=== PATIENT | female | born 1935 | race Caucasian/White ===

== ENCOUNTER → 2018-08-03 13:01 | Outpatient (CLI) | payer MEDICARE, SELFPAY ==
--- NOTE | 2018-08-03 | DI.MG.S_ITS ---
BILATERAL DIGITAL SCREENING MAMMOGRAM 3D/2D WITH CAD: 08/03/2018 CLINICAL: Routine screening. Comparison is made to exams dated: 07/30/2017 mammogram, 07/29/2016 mammogram, and 07/27/2015 mammogram - Merged With [facility]. The tissue of both breasts is heterogeneously dense. This may lower the sensitivity of mammography. Current study was also evaluated with a Computer Aided Detection (CAD) system. There are benign calcifications in both breasts. No significant masses, calcifications, or other findings are seen in either breast. There has been no significant interval change. IMPRESSION: There is no mammographic evidence of malignancy. A 1 year screening mammogram is recommended. This exam was interpreted at Station ID: [id number]. NOTE: For mammograms, a report in lay terms will be sent to the patient. Approximately 15% of breast malignancies will not be visualized mammographically. In the management of a palpable breast mass, a negative mammogram must not discourage biopsy of a clinically suspicious lesion. Electronically Signed By: Fredy reza/mallorie:08/03/2018 17:01:49 letter sent: Normal Exam ACR BI-RADS Category 2: Benign Finding(s) [id number]
== END ==
PROVIDERS: PCP Physician Assistant; Visit Provider Physician Assistant
DX: Z12.31 Encounter for screening mammogram for malignant neoplasm of breast (principal)
CPT/HCPCS: 77063; 77067

== ENCOUNTER → 2018-10-27 08:20 | Outpatient (CLI) | payer MEDICARE, SELFPAY ==
[2018-10-27 09:13] LABS: Add Manual Diff / Slide Review NO; Basophils Absolute Auto 100 /uL (0-100); Eosinophils Absolute Auto 300 /uL (0-450); Eosinophils Percent Auto 2.7 % (2-4); Hematocrit 37.3 % (36-46); Hemoglobin 12.5 g/dL (12.0-16.0); Lymphocytes Absolute Auto 2800 /uL (1100-4500); Lymphocytes Percent Auto 28.4 % (25-40); Mean Corpuscular HGB Conc 33.4 % (30-36); Mean Corpuscular Hemoglobin 31.3 PG (26-34); Mean Corpuscular Volume 93.7 fL (80-100); Monocytes Absolute Auto 1000 /uL (0-900); Monocytes Percent Auto 10.1 % (3-14); Neutrophils Absolute Auto 5600 /uL (1500-7000); Neutrophils Percent Auto 57.8 % (50-75); Platelet Count 375 X10^3/uL (150-400); Red Blood Cell Count 3.98 X10^6/uL (4.0-5.2); Red Cell Distribution Width 15.4 % (11.6-14.8); White Blood Cell Count 9.7 X10^3/uL (4.5-11.0)
[2018-10-27 09:37] LABS: Alanine Aminotransferase 11 IU/L (9-52); Albumin 3.8 g/dL (3.5-5.0); Albumin Globulin Ratio 1.4 (1.0-2.8); Alkaline Phosphatase 60 U/L (38-126); Aspartate Aminotransferase 23 IU/L (14-36); Bilirubin Total 0.3 mg/dL (0.2-1.3); Blood Urea Nitrogen 31 mg/dL (7-17); Calcium 9.4 mg/dL (8.4-10.2); Carbon Dioxide 29 mmol/L (22-32); Chloride 104 mmol/L (98-107); Cholesterol 164 mg/dL (140-199); Estimated Glomerular Filt Rate 53.1 mL/min (>60); Globulin 2.8 g/dL (1.7-4.1); Glucose 83 mg/dL (80-110); HDL Cholesterol 78 mg/dL (40-60); HEMOLYSIS < 15 (0-50); LDL Cholesterol Calculated 57 mg/dL (<100); Potassium 4.7 mmol/L (3.4-5.1); Sodium 139 mmol/L (137-145); Total Protein 6.6 g/dL (6.3-8.2); Triglycerides 145 mg/dL (35-150)
== END ==
PROVIDERS: PCP Physician Assistant; Visit Provider Student in an Organized Health Care Education/Training Program
DX: I10 Essential (primary) hypertension (principal); E78.5 Hyperlipidemia, unspecified
CPT/HCPCS: 36415; 80053; 80061; 85025

== ENCOUNTER 2019-01-04 13:45 | Outpatient (RCR) | payer MEDICARE, SELFPAY ==
--- NOTE | 2018-10-28 17:35 | PT.OPPOC ---
Current Diagnoses Cervicalgia (10/28/18) Provider Visit Care Team Role Provider Type Wendi Linton PA-C Attending Provider [employer] Specialist Primary Care Provider Specialty: Internal Medicine Address: [address] [place] [address], [facility] Email: Plan Of Care PT-OP-T Assessment and Plan Start: 10/28/18 13:45 Freq: Status: Active Protocol: Document 10/28/18 13:46 EA (Rec: 10/28/18 14:29 EA [id number]) Physical Therapy Assessment Rehab Potential Rehabilitation Potential Good Evaluation Complexity Number of Personal Factors/Comorbidities 1-2 Number of Body Systems Impaired 1-2 Clinical Presentation at Evaluation Stable Impairments Impairments Activity Tolerance Pain Posture ROM Soft Tissue Mobility Strength Goals Four Impairment Impaired strength Alf Goal (LTG) Patient will exhibit functional strength to cervical flexion, SF, rotation , and cervical retraction to enhance functional neck mobility LTG Duration 5 wks Three Impairment Driving difficulty Alf Goal (LTG) Patient will have no difficulty/ or pain when her turning her head if requires while driving. LTG Duration 5 wks Two Impairment NDI score of 18/50 Retail Team Leader Goal (LTG) NDI score of <10/50 to enhance quality of life LTG Duration 5 wks One Impairment No HEP in place Alf Goal (LTG) Patient will demonstrate independent HEP LTG Duration 3wks Assessment Summary Assessment Pleasant 82 y/o F patient with a referring diagnosis of cervicalgia. Today patient exhibited difficulty of head turning due posterior neck pain. Tests and assessment reveals limited ROM with cervical rotation, SF, and extension. Cervical flexors, cervical side flexors, rotators shows weakness which maybe due to pain. Patient shows rounded shoulders with bilaterals shoulder depression , and slight increased of thoracic kyphosis. Sensory and reflex to upper cervical region reveals normal. Cervical compression tests did no show any signs of nerve compression as cervical dermatomes. 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 Patient would greatly benefit with skilled PT. to improve posture, eliminate or reduce symptoms, and education. Physical Therapy Plan Frequency and Duration Frequency of Treatment 2x/Week Duration of Treatment 8 wks Plan of Care Start Date 10/28/18 Plan of Care End Date 12/23/18 Therapeutic Interventions Therapeutic Interventions Home Exercise Program Joint Mobilizations Manual Therapy Patient/Caregiver Education Soft Tissue Mobilization Therapeutic Exercises Modalities Cold Pack/Ice Massage Electric Stimulation Hot Packs Traction- Mechanical Ultrasound Next Visit Focus/Plan Next Note Type Treatment Note Plan of Care Dates Plan of Care Start Date 10/28/18 Plan of Care End Date 12/23/18 Please Sign and Return: I have reviewed this Plan of Care and certify that the skilled therapy services above are required to meet the patient?s needs. Physician Signature Date Printed Name and Credentials Clinical Instructor Signature Printed Name and Credentials
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
--- NOTE | 2018-12-21 14:30 | PT.OPPOC ---
Current Diagnoses Cervicalgia (12/21/18) Visit Care Team Role Provider Type Wendi Linton PA-C Attending Provider Advanced Restaurant Area Manager Primary Care Provider Specialty: Internal Medicine Address: [address] [place] [address], [id number] Email: [email or web address] Of Care PT-OP-T Assessment and Plan Start: 10/28/18 13:45 Freq: Status: Active Protocol: Document 12/21/18 13:45 DLM (Rec: 12/21/18 16:32 DLM [id number]) Physical Therapy Assessment Goals Four Impairment Impaired strength Professor Of Legal Studies Goal (LTG) Improving- Patient will exhibit functional strength to cervical flexion, SF, rotation, and cervical retraction to enhance functional neck mobility LTG Duration 01/04/19 Three Impairment Driving difficulty Fpc Goal (LTG) Slow progress- Patient will have no difficulty/ or pain when her turning her head if requires while driving. LTG Duration 01/04/19 Two Impairment NDI score of 18/50 Fpc Goal (LTG) Progressing- NDI score of <10/ 50 to enhance quality of life LTG Duration 01/04/19 One Impairment No HEP in place Professor Of Legal Studies Goal (LTG) Progressing-Patient will demonstrate independent HEP LTG Duration 01/04/19 Progress Towards Goals Progress Comments she continues to slowly progress Assessment Summary Assessment She tolerated her exercises well. She shows improvement in all area but has not fully met her goals yet. Left rotation continues to be the most painful for her. Cervical weakness still limits her ability to lift her head off the bed. Will continue PT for 2 more weeks then plan to discharge to [facility]. Physical Therapy Plan Frequency and Duration Frequency of Treatment 2x/Week Duration of Treatment 8 wks Plan of Care Start Date 12/21/18 Plan of Care End Date 01/04/19 Therapeutic Interventions Therapeutic Interventions Home Exercise Program,Joint Mobilizations,Manual Therapy, Patient/Caregiver Education, Self-Care/Home Management,Soft Tissue Mobilization,Taping, Therapeutic Activities, Therapeutic Exercises Modalities Cold Pack/Ice Massage,Electric Stimulation,Hot Packs, Traction- Mechanical, Ultrasound Plan of Care Dates Plan of Care Start Date 12/21/18 Plan of Care End Date 01/04/19 Please Sign and Return: I have reviewed this Plan of Care and certify that the skilled therapy services above are required to meet the patient?s needs. Physician Signature Date Printed Name and Credentials
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
== END 2019-01-05 12:43 ==
LOC: PHYS 13:45
PROVIDERS: PCP Physician Assistant; Visit Provider Physician Assistant
DX: M54.2 Cervicalgia (principal)
CPT/HCPCS: 97012; 97014; 97110; 97140; 97161; 97535; G0283

== ENCOUNTER → 2019-05-17 15:50 | Outpatient (ROUT) | payer MEDICARE, SELFPAY ==
[2019-05-17 16:30] LABS: Add Manual Diff / Slide Review NO; Basophils Absolute Auto 100 /uL (0-100); Basophils Percent Auto 1.1 % (0-2); Eosinophils Absolute Auto 200 /uL (0-450); Eosinophils Percent Auto 2.9 % (2-4); Hematocrit 39.4 % (36-46); Hemoglobin 13.4 g/dL (12.0-16.0); Lymphocytes Absolute Auto 1800 /uL (1100-4500); Lymphocytes Percent Auto 23.7 % (25-40); Mean Corpuscular HGB Conc 34.1 % (30-36); Mean Corpuscular Hemoglobin 31.8 PG (26-34); Mean Corpuscular Volume 93.3 fL (80-100); Monocytes Absolute Auto 900 /uL (0-900); Monocytes Percent Auto 11.4 % (3-14); Neutrophils Absolute Auto 4600 /uL (1500-7000); Neutrophils Percent Auto 60.9 % (50-75); Platelet Count 366 X10^3/uL (150-400); Red Blood Cell Count 4.22 X10^6/uL (4.0-5.2); White Blood Cell Count 7.5 X10^3/uL (4.5-11.0)
[2019-05-17 16:53] LABS: Alanine Aminotransferase 19 IU/L (<35); Albumin 3.8 g/dL (3.5-5.0); Albumin Globulin Ratio 1.3 (1.0-2.8); Alkaline Phosphatase 75 U/L (38-126); Aspartate Aminotransferase 30 IU/L (14-36); BUN Creatinine Ratio 23.8 (6-22); Bilirubin Total 0.3 mg/dL (0.2-1.3); Blood Urea Nitrogen 19 mg/dL (7-17); Calcium 9.4 mg/dL (8.4-10.2); Carbon Dioxide 28 mmol/L (22-32); Chloride 103 mmol/L (98-107); Cholesterol 169 mg/dL (140-199); Estimated Glomerular Filt Rate > 60.0 mL/min (>60); Glucose 91 mg/dL (80-110); HDL Cholesterol 69 mg/dL (40-60); HEMOLYSIS < 15 (0-50); LDL Cholesterol Calculated 73 mg/dL (<100); Potassium 4.3 mmol/L (3.4-5.1); Sodium 138 mmol/L (137-145); Total Protein 6.8 g/dL (6.3-8.2); Triglycerides 135 mg/dL (35-150)
== END ==
PROVIDERS: PCP Physician Assistant; Visit Provider Student in an Organized Health Care Education/Training Program
DX: I10 Essential (primary) hypertension (principal); I25.10 Atherosclerotic heart disease of native coronary artery without angina pectoris; E78.5 Hyperlipidemia, unspecified
CPT/HCPCS: 80053; 80061; 85025

== ENCOUNTER → 2019-05-24 14:39 | Outpatient (CLI) | payer MEDICARE, SELFPAY | PROVIDERS: PCP Physician Assistant; Referring Provider Student in an Organized Health Care Education/Training Program; Visit Provider Student in an Organized Health Care Education/Training Program | DX: M85.851 Other specified disorders of bone density and structure, right thigh (principal); Z78.0 Asymptomatic menopausal state; Z90.722 Acquired absence of ovaries, bilateral; Z82.62 Family history of osteoporosis; Z87.891 Personal history of nicotine dependence | CPT/HCPCS: 77080 ==

== ENCOUNTER → 2020-01-28 17:47 | Outpatient (ROUT) | payer MEDICARE, SELFPAY | PROVIDERS: PCP Physician Assistant; Visit Provider Physician Assistant | DX: R39.9 Unspecified symptoms and signs involving the genitourinary system (principal) | CPT/HCPCS: 87077; 87086; 87186 ==

== ENCOUNTER → 2020-06-01 15:08 | Outpatient (ROUT) | payer MEDICARE, SELFPAY ==
[2020-06-01 15:26] LABS: Hematocrit 37.4 % (36-46); Hemoglobin 12.2 g/dL (12.0-16.0); Mean Corpuscular HGB Conc 32.7 % (30-36); Mean Corpuscular Hemoglobin 30.2 PG (26-34); Mean Corpuscular Volume 92.4 fL (80-100); Platelet Count 386 X10^3/uL (150-400); Red Blood Cell Count 4.05 X10^6/uL (4.0-5.2); Red Cell Distribution Width 12.7 % (11.6-14.8)
[2020-06-01 15:48] LABS: Alanine Aminotransferase 16 IU/L (<35); Albumin 3.7 g/dL (3.5-5.0); Albumin Globulin Ratio 1.3 (1.0-2.8); Alkaline Phosphatase 106 U/L (38-126); Aspartate Aminotransferase 26 IU/L (14-36); BUN Creatinine Ratio 26.1 (6-22); Bilirubin Total 0.3 mg/dL (0.2-1.3); Blood Urea Nitrogen 24 mg/dL (7-17); Calcium 9.3 mg/dL (8.4-10.2); Carbon Dioxide 28 mmol/L (22-32); Chloride 103 mmol/L (98-107); Cholesterol 166 mg/dL (140-199); Estimated Glomerular Filt Rate 58.2 mL/min (>60); Globulin 2.9 g/dL (1.7-4.1); Glucose 88 mg/dL (80-110); HDL Cholesterol 70 mg/dL (40-60); HEMOLYSIS < 15 (0-50); LDL Cholesterol Calculated 74 mg/dL (<100); Potassium 4.3 mmol/L (3.4-5.1); Sodium 134 mmol/L (137-145); Total Protein 6.6 g/dL (6.3-8.2); Triglycerides 109 mg/dL (35-150)
== END ==
PROVIDERS: PCP Physician Assistant; Visit Provider Student in an Organized Health Care Education/Training Program
DX: I10 Essential (primary) hypertension (principal); I25.10 Atherosclerotic heart disease of native coronary artery without angina pectoris; K21.9 Gastro-esophageal reflux disease without esophagitis; E78.5 Hyperlipidemia, unspecified
CPT/HCPCS: 80053; 80061; 85027

== ENCOUNTER 2020-10-05 16:36 | Emergency (ER) | payer MEDICARE, SELFPAY ==
[2020-10-05 16:40] VITALS: BP 147/87; PULSE 110; RESP 12; TEMP 36.7; O2SAT 99; BMI 25.8
--- NOTE | 2020-10-05 16:42 | DI.RAD.S_ITS ---
PROCEDURE: XR CHEST 2V INDICATIONS: shortness of breath TECHNIQUE: 2 views of the chest were acquired. COMPARISON: [facility], , CHEST 2 VIEW, 01/16/2013, 11:01. FINDINGS: Surgical changes and devices: None. Lungs and pleura: Minimal increased vascularity. No pleural effusions or pneumothorax. Mediastinum: Mediastinal contours are normal. Heart size is normal. Bones and chest wall: No suspicious bony abnormalities. Soft tissues appear unremarkable. IMPRESSION: Minimal increased vascularity. Minimal edema cannot be excluded. Dictated by: Apolonia Montelongo M.D. on 10/05/2020 at 18:37 Approved by: Apolonia Montelongo M.D. on 10/05/2020 at 18:38
[2020-10-05 17:17] LABS: Add Manual Diff / Slide Review NO; Basophils Absolute Auto 100 /uL (0-100); Basophils Percent Auto 0.9 % (0-2); Eosinophils Absolute Auto 200 /uL (0-450); Eosinophils Percent Auto 1.7 % (2-4); Hematocrit 31.5 % (36-46); Hemoglobin 10.4 g/dL (12.0-16.0); Lymphocytes Absolute Auto 3100 /uL (1100-4500); Lymphocytes Percent Auto 31.4 % (25-40); Mean Corpuscular Hemoglobin 28.3 PG (26-34); Mean Corpuscular Volume 85.6 fL (80-100); Monocytes Absolute Auto 1300 /uL (0-900); Monocytes Percent Auto 12.8 % (3-14); Neutrophils Absolute Auto 5300 /uL (1500-7000); Neutrophils Percent Auto 53.2 % (50-75); Platelet Count 398 X10^3/uL (150-400); Red Blood Cell Count 3.68 X10^6/uL (4.0-5.2); Red Cell Distribution Width 14.2 % (11.6-14.8); White Blood Cell Count 9.9 X10^3/uL (4.5-11.0)
[2020-10-05 17:25] LABS: Lactate (Lactic Acid) 1.4 mmol/L (0.7-2.1)
[2020-10-05 17:26] LABS: Alanine Aminotransferase 20 IU/L (<35); Albumin 3.9 g/dL (3.5-5.0); Albumin Globulin Ratio 1.4 (1.0-2.8); Alkaline Phosphatase 75 U/L (38-126); Aspartate Aminotransferase 31 IU/L (14-36); BUN Creatinine Ratio 31.4 (6-22); Blood Urea Nitrogen 32 mg/dL (7-17); Calcium 9.1 mg/dL (8.4-10.2); Carbon Dioxide 25 mmol/L (22-32); Chloride 107 mmol/L (98-107); Estimated Glomerular Filt Rate 51.6 mL/min (>60); Globulin 2.8 g/dL (1.7-4.1); Glucose 152 mg/dL (80-110); HEMOLYSIS < 15 (0-50); Potassium 3.4 mmol/L (3.4-5.1); Sodium 137 mmol/L (137-145); Total Protein 6.7 g/dL (6.3-8.2)
[2020-10-05 17:27] LABS: Bilirubin Total < 0.1 mg/dL (0.2-1.3)
[2020-10-05 17:43] VITALS: O2SAT 100
[2020-10-05 17:44] VITALS: BP 148/67; PULSE 91; O2SAT 100
[2020-10-05 18:00] VITALS: PULSE 91; O2SAT 99
[2020-10-05 18:39] LABS: COVID19 -Nasal RAPID Negative (Negative)
--- NOTE | 2020-10-05 18:49 | ED_ITS ---
HPI - SOB/Dyspnea General Chief Complaint: Shortness of Breath/Dyspnea Stated Complaint: SOB Time Seen by Provider: 10/05/20 18:06 Source: patient Mode of arrival: Ambulatory History of Present Illness HPI Narrative: Patient here with daughter. Complaints 2 months of dyspnea. Patient fall by [facility] cardiology Dr. Oliveira, previous heart attack in the past. Denies any lung problems. No emphysema or asthma. No recent illness cough cold congestion fever chills. Feels very dyspneic with talking and with walking. Denies denies any chest pain. No prior history of blood clots in legs or lungs. No recent stress test or echocardiogram by her pilates instructor or family doctor. Related Data Home Medications Medication Instructions Recorded Confirmed benazepril 20 mg tablet 20 mg PO BID #0 01/10/13 hydrocodone 5 mg-acetaminophen 325 1 tab PO Q6HP PRN #0 tab 01/10/13 mg tablet aspirin 81 mg chewable tablet 81 mg PO QDAY #0 01/15/13 metoprolol tartrate 50 mg tablet 50 mg PO BID #0 tab 01/15/13 Allergies Allergy/AdvReac Type Severity Reaction Status Date / Time tramadol [TRAMADOL] Allergy Unknown Unverified 10/05/20 16:42 atorvastatin [ATORVASTATIN] AdvReac Mild HEADACHES Unverified 10/05/20 16:42 diphenhydramine AdvReac Mild HYPERACTIVE Unverified 10/05/20 16:42 [DIPHENHYDRAMINE] Review of Systems Review of Systems Narrative: GENERAL: Denies chills, fatigue, malaise, fever, sweats. HEENT: Denies sinus pain, ear pain, sore throat RESPIRATORY: Complaint dyspnea, denies cough CARDIOVASCULAR: Denies chest pain, palpitations GASTROINTESTINAL: Denies nausea, vomiting, abdominal pain : Denies dysuria, frequency, hematuria MUSCULOSKELETAL: denies muscle or bony pain SKIN: Denies rash, skin lesions NEUROLOGIC: Denies weakness, numbness ROS Unobtainable: All systems reviewed & are unremarkable except as noted in HPI and below Patient History Social History Smoking Status: Former smoker Smoking Status: Former smoker Substance Use Type: does not use Exam Narrative Exam Narrative: GENERAL: in no distress, not toxic not dyspneic HEAD: Normocephalic. EYES: Pupils equal round No scleral icterus. No injection no discharge ENT: Mucous membranes moist. NECK: Trachea midline. CARDIOVASCULAR: Regular rate and rhythm without murmurs RESPIRATORY: Clear to auscultation. Breath sounds equal bilaterally. No wheezes, rales, or rhonchi. GASTROINTESTINAL: Abdomen soft, non-tender EXTREMITIES: No gross deformities. BACK: No flank tenderness. NEURO: AOx4. SKIN: Warm and dry PSYCH: Not anxious, is cooperative Initial Vital Signs Initial Vital Signs: Vital Signs Temperature 98.0 F 10/05/20 16:40 Pulse Rate 110 H 10/05/20 16:40 Respiratory Rate 12 10/05/20 16:40 Blood Pressure 147/87 H 10/05/20 16:40 Pulse Oximetry 99 10/05/20 16:40 Course Course Course Narrative: Patient ambulated in hallway room air pulse ox 96%, no dyspnea Orders Ordered: ED Orders 10/05/20 16:42 XR chest 2V Stat EKG-12 Lead Stat Measure peak expiratory flow ONCE RT Consult Eval and Treat Now 10/05/20 16:57 Complete Blood Count AUTO DIFF Stat Comprehensive Metabolic Panel Stat Lactate (Lactic Acid) Stat NT-proBNP (BNP-Adult 18+) Stat Troponin & CK Cardiac Panel Stat 10/05/20 18:00 COVID19 -Nasal swab/Pre-Proc Stat 10/05/20 19:20 D Dimer Stat 10/05/20 19:57 CT angio chest PE protocol Stat Discontinued Medications Sodium Chloride (Normal Saline 0.9%) 500 mls @ 1,000 mls/hr IV BOLUS ONE Stop: 10/05/20 20:26 Last Admin: 10/05/20 20:28 Dose: 1,000 mls/hr Documented by: [email or web address].[email or web address] Vital Signs Vital signs: Vital Signs - 8 hr 10/05/20 17:43 10/05/20 17:44 10/05/20 18:00 Pulse Rate 91 H 91 H Blood Pressure 148/67 H Pulse Oximetry 100 100 99 10/05/20 21:49 Pulse Rate 103 H Blood Pressure 161/74 H Pulse Oximetry 99 MDM - SOB/Dyspnea Differential Diagnosis Differential diagnosis: Likely congestive heart failure, community acquired pneumonia and pulmonary embolism Lab Data Result diagrams: 10/05/20 16:57 10/05/20 16:57 Labs: Lab Results 07/04/2710/05/20 10/05/20 Range/Units 16:57 16:57 16:57 WBC 9.9 (4.5-11.0) X10^3/uL RBC 3.68 L (4.0-5.2) X10^6/uL Hgb 10.4 L (12.0-16.0) g/dL Hct 31.5 L (36-46) % MCV 85.6 (80-100) fL MCH 28.3 (26-34) PG MCHC 33.0 (30-36) % RDW 14.2 (11.6-14.8) % Plt Count 398 (150-400) X10^3/uL Neut % (Auto) 53.2 (50-75) % Lymph % (Auto) 31.4 (25-40) % Hartley % (Auto) 12.8 (3-14) % Eos % (Auto) 1.7 L (2-4) % Baso % (Auto) 0.9 (0-2) % Neut # (Auto) 5300 (0380-4465) /uL Lymph # (Auto) 3100 (3589-5375) /uL Hartley # (Auto) 1300 H (0-900) /uL Eos # (Auto) 200 (0-450) /uL Baso # (Auto) 100 (0-100) /uL D-Dimer (<230) ng/mL Sodium 137 (137-145) mmol/L Potassium 3.4 (3.4-5.1) mmol/L Chloride 107 (98-107) mmol/L Carbon Dioxide 25 (22-32) mmol/L BUN 32 H (7-17) mg/dL Creatinine 1.02 (0.52-1.04) mg/dL Estimated GFR 51.6 L (>60) mL/min BUN/Creatinine Ratio 31.4 H (6-22) Glucose 152 H (80-110) mg/dL Lactate 1.4 (0.7-2.1) mmol/L Calcium 9.1 (8.4-10.2) mg/dL Total Bilirubin < 0.1 L (0.2-1.3) mg/dL AST 31 (14-36) IU/L ALT 20 (<35) IU/L Alkaline Phosphatase 75 (38-126) U/L Total Creatine Kinase (30-135) U/L CK-MB (CK-2) CK-MB (CK-2) Rel Index Troponin I (0.01-0.034) ng/mL NT-Pro-B Natriuret Pep (<450) pg/mL Total Protein 6.7 (6.3-8.2) g/dL Albumin 3.9 (3.5-5.0) g/dL Globulin 2.8 (1.7-4.1) g/dL Albumin/Globulin Ratio 1.4 (1.0-2.8) SARS-CoV-2 (PCR) (Negative) 10/05/20 10/05/20 10/05/20 Range/Units 16:57 16:57 18:00 WBC (4.5-11.0) X10^3/uL RBC (4.0-5.2) X10^6/uL Hgb (12.0-16.0) g/dL Hct (36-46) % MCV (80-100) fL MCH (26-34) PG MCHC (30-36) % RDW (11.6-14.8) % Plt Count (150-400) X10^3/uL Neut % (Auto) (50-75) % Lymph % (Auto) (25-40) % Hartley % (Auto) (3-14) % Eos % (Auto) (2-4) % Baso % (Auto) (0-2) % Neut # (Auto) (4512-9137) /uL Lymph # (Auto) (4209-6811) /uL Hartley # (Auto) (0-900) /uL Eos # (Auto) (0-450) /uL Baso # (Auto) (0-100) /uL D-Dimer (<230) ng/mL Sodium (137-145) mmol/L Potassium (3.4-5.1) mmol/L Chloride (98-107) mmol/L Carbon Dioxide (22-32) mmol/L BUN (7-17) mg/dL Creatinine (0.52-1.04) mg/dL Estimated GFR (>60) mL/min BUN/Creatinine Ratio (6-22) Glucose (80-110) mg/dL Lactate (0.7-2.1) mmol/L Calcium (8.4-10.2) mg/dL Total Bilirubin (0.2-1.3) mg/dL AST (14-36) IU/L ALT (<35) IU/L Alkaline Phosphatase (38-126) U/L Total Creatine Kinase 39 (30-135) U/L CK-MB (CK-2) TNP CK-MB (CK-2) Rel Index TNP Troponin I < 0.012 (0.01-0.034) ng/mL NT-Pro-B Natriuret Pep 170 (<450) pg/mL Total Protein (6.3-8.2) g/dL Albumin (3.5-5.0) g/dL Globulin (1.7-4.1) g/dL Albumin/Globulin Ratio (1.0-2.8) SARS-CoV-2 (PCR) Negative (Negative) 10/05/20 Range/Units 19:20 WBC (4.5-11.0) X10^3/uL RBC (4.0-5.2) X10^6/uL Hgb (12.0-16.0) g/dL Hct (36-46) % MCV (80-100) fL MCH (26-34) PG MCHC (30-36) % RDW (11.6-14.8) % Plt Count (150-400) X10^3/uL Neut % (Auto) (50-75) % Lymph % (Auto) (25-40) % Hartley % (Auto) (3-14) % Eos % (Auto) (2-4) % Baso % (Auto) (0-2) % Neut # (Auto) (2449-9130) /uL Lymph # (Auto) (2276-4108) /uL Hartley # (Auto) (0-900) /uL Eos # (Auto) (0-450) /uL Baso # (Auto) (0-100) /uL D-Dimer 414 H (<230) ng/mL Sodium (137-145) mmol/L Potassium (3.4-5.1) mmol/L Chloride (98-107) mmol/L Carbon Dioxide (22-32) mmol/L BUN (7-17) mg/dL Creatinine (0.52-1.04) mg/dL Estimated GFR (>60) mL/min BUN/Creatinine Ratio (6-22) Glucose (80-110) mg/dL Lactate (0.7-2.1) mmol/L Calcium (8.4-10.2) mg/dL Total Bilirubin (0.2-1.3) mg/dL AST (14-36) IU/L ALT (<35) IU/L Alkaline Phosphatase (38-126) U/L Total Creatine Kinase (30-135) U/L CK-MB (CK-2) CK-MB (CK-2) Rel Index Troponin I (0.01-0.034) ng/mL NT-Pro-B Natriuret Pep (<450) pg/mL Total Protein (6.3-8.2) g/dL Albumin (3.5-5.0) g/dL Globulin (1.7-4.1) g/dL Albumin/Globulin Ratio (1.0-2.8) SARS-CoV-2 (PCR) (Negative) Imaging Data CT scan - chest: Radiologist's Impression: [address] [id number] Scan ReportSigned Patient: Concepcion Phillips LMR#: [id number]: 1935cct:[id number]/Sex: 84 / FDate of Service: 10/05/20Loc: EDAccession Number: [id number] Procedure: CT angio chest PE protocol Ordering Provider: Sam Tam MD PROCEDURE: CT ANGIO CHEST PE PROTOCOL INDICATIONS: Dyspnea TECHNIQUE: After the administration of intravenous contrast, 2 mm thick sections acquired from the pulmonary apices to the posterior costophrenic angles. 3-dimensional maximum intensity projection (MIP) coronal and sagittal reformats were then acquired through the thorax. For radiation dose reduction, the following was used: automated exposure control, adjustment of mA and/or kV according to patient size. COMPARISON: [facility], MG, MM SCREENING MAMMO BI, 08/03/2018, 13:33. [facility], CR, XR CHEST 2V, 10/05/2020, 17:16. FINDINGS: Image quality: Excellent. Pulmonary arteries: Pulmonary arteries are normal in size, and demonstrate no intraluminal filling defects to suggest central pulmonary embolism. Lungs and pleura: Lungs are clear. No pleural effusions or pneumothorax. Central and peripheral airways are patent. Mediastinum: Heart size is normal, without pericardial effusion. No mediastinal or hilar adenopathy. Thoracic aorta is normal in caliber and enhancement. Esophagus is normal in caliber, without hiatal hernia. Bones and chest wall: No suspicious bony lesions. Ribs and thoracic spine appear intact throughout. Thyroid gland demonstrates low-attenuation foci most notable in the left lobe. No axillary or supraclavicular adenopathy. Multiple areas of calcification and nodularity are present within the breasts bilaterally including a 1.2 cm nodular mass on the right. No prior CTs are available for comparison. Last mammogram is noted to be 2019. Abdomen: Large gallstone is present without wall thickening. Otherwise, visualized upper abdominal solid organs appear normal in the early arterial phase of enhancement. IMPRESSION: 1. No pulmonary embolism. Lungs are clear. 2. Multiple nodularity and calcification within the breasts without prior CT for comparison. More prominent 1.2 cm nodule is noted on the right. This appears to been present on prior mammogram in 2019. Recommend interval follow-up to document stability. 3. Cholelithiasis. 4. Low-attenuation foci within the thyroid. No priors are available for comparison. Thyroid ultrasound may be obtained for additional evaluation. Dictated by: Apolonia Montelongo M.D. on 10/05/2020 at 20:53 Approved by: Apolonia Montelongo M.D. on 10/05/2020 at 20:58 Chest x-ray: Radiologist's Impression: [address] [id number] ReportSigned Patient: Concepcion Phillips LMR#: [id number]: 1935cct:[id number]/Sex: 84 / FDate of Service: 10/05/20Loc: EDAccession Number: [id number] Procedure: XR chest 2V Ordering Provider: Niharika Pool D.O. PROCEDURE: XR CHEST 2V INDICATIONS: shortness of breath TECHNIQUE: 2 views of the chest were acquired. COMPARISON: [facility] , CHEST 2 VIEW, 01/16/2013, 11:01. FINDINGS: Surgical changes and devices: None. Lungs and pleura: Minimal increased vascularity. No pleural effusions or pneumothorax. Mediastinum: Mediastinal contours are normal. Heart size is normal. Bones and chest wall: No suspicious bony abnormalities. Soft tissues appear unremarkable. IMPRESSION: Minimal increased vascularity. Minimal edema cannot be excluded. Dictated by: Apolonia Montelongo M.D. on 10/05/2020 at 18:37 Approved by: Apolonia Montelongo M.D. on 10/05/2020 at 18:38 ECG Data Interpretation: Normal sinus rhythm rate [address] elevation or depression MDM Narrative Medical decision making narrative: Patient desires discharge home. No dyspnea while here. Agrees for follow-up with her pilates instructor and family doctor after ER visit. She will call office in the morning. Appropriate for outpatient echocardiogram. Patient never had dyspnea while here. No chest pain while here or in any of the complaints. Discharge Plan Departure Patient Disposition: Home Clinical Impression: Shortness of Breath Instructions: DI for Shortness of Breath Activity Restrictions/Additional Instructions: Return immediately if worse or for any questions or concerns. See family doctor or your pilates instructor within a week for recheck and to schedule echocardiogram of your heart. Return if any chest pain or trouble breathing. Prescriptions: No Action benazepril 20 MG tablet 20 mg PO BID Qty: 0 RF: 0 hydrocodone-acetaminophen 5 MG/325 MG tablet 1 tab PO Q6HP PRNQty: 0 RF: 0 aspirin 81 MG tablet,chewable 81 mg PO QDAY Qty: 0 RF: 0 metoprolol tartrate 50 MG tablet 50 mg PO BID Qty: 0 RF: 0 Referrals: Bee Escalante PA-C [Primary Care Provider] -
[2020-10-05 18:59] LABS: Creatine Kinase 39 U/L (30-135)
[2020-10-05 19:09] LABS: NT-proBNP (BNP-Adult 18+) 170 pg/mL (<450)
[2020-10-05 19:12] LABS: Troponin I < 0.012 ng/mL (0.01-0.034)
[2020-10-05 19:41] LABS: D Dimer 414 ng/mL (<230)
--- NOTE | 2020-10-05 19:57 | DI.CT.S_ITS ---
PROCEDURE: CT ANGIO CHEST PE PROTOCOL INDICATIONS: Dyspnea TECHNIQUE: After the administration of intravenous contrast, 2 mm thick sections acquired from the pulmonary apices to the posterior costophrenic angles. 3-dimensional maximum intensity projection (MIP) coronal and sagittal reformats were then acquired through the thorax. For radiation dose reduction, the following was used: automated exposure control, adjustment of mA and/or kV according to patient size. COMPARISON: [facility], , MM SCREENING MAMMO BI, 08/03/2018, 13:33. [facility], CR, XR CHEST 2V, 10/05/2020, 17:16. FINDINGS: Image quality: Excellent. Pulmonary arteries: Pulmonary arteries are normal in size, and demonstrate no intraluminal filling defects to suggest central pulmonary embolism. Lungs and pleura: Lungs are clear. No pleural effusions or pneumothorax. Central and peripheral airways are patent. Mediastinum: Heart size is normal, without pericardial effusion. No mediastinal or hilar adenopathy. Thoracic aorta is normal in caliber and enhancement. Esophagus is normal in caliber, without hiatal hernia. Bones and chest wall: No suspicious bony lesions. Ribs and thoracic spine appear intact throughout. Thyroid gland demonstrates low-attenuation foci most notable in the left lobe. No axillary or supraclavicular adenopathy. Multiple areas of calcification and nodularity are present within the breasts bilaterally including a 1.2 cm nodular mass on the right. No prior CTs are available for comparison. Last mammogram is noted to be 2019. Abdomen: Large gallstone is present without wall thickening. Otherwise, visualized upper abdominal solid organs appear normal in the early arterial phase of enhancement. IMPRESSION: 1. No pulmonary embolism. Lungs are clear. 2. Multiple nodularity and calcification within the breasts without prior CT for comparison. More prominent 1.2 cm nodule is noted on the right. This appears to been present on prior mammogram in 2019. Recommend interval follow-up to document stability. 3. Cholelithiasis. 4. Low-attenuation foci within the thyroid. No priors are available for comparison. Thyroid ultrasound may be obtained for additional evaluation. Dictated by: Apolonia Montelongo M.D. on 10/05/2020 at 20:53 Approved by: Apolonia Montelongo M.D. on 10/05/2020 at 20:58
[2020-10-05] MEDS: SODIUM CHLORIDE 0.9% 500 ML 1000 ML IV (20:28)
[2020-10-05 21:49] VITALS: BP 161/74; PULSE 103; O2SAT 99
--- NOTE | 2020-10-12 02:50 | PC.NURSE ---
Late entry. one liter normal saline infused, stopped at 2150
== END 2020-10-05 21:57 | disposition home or self-care (01) ==
PROVIDERS: Emergency Medicine; Emergency Provider Emergency Medicine; PCP Student in an Organized Health Care Education/Training Program
DX: R06.02 Shortness of breath (principal); Z20.822 Contact with and (suspected) exposure to COVID-19
CPT/HCPCS: 36415; 71046; 71275; 80053; 82550; 83605; 83880; 84484; 85025; 85379; 87635; 93005; 96360; 99284; C9803; Q9967

== ENCOUNTER → 2020-10-12 08:24 | Outpatient (CLI) | payer MEDICARE, SELFPAY ==
[2020-10-12 10:27] LABS: HEMOLYSIS < 15 (0-50); Iron 25 ug/dL (37-170)
[2020-10-12 10:40] LABS: Percent Iron Saturation 6 % (15-50); Total Iron Binding Capacity 405 ug/dL (265-497); Transferrin 323 mg/dL (206-381)
[2020-10-12 10:45] LABS: Free T4, Direct Thyroxine 0.85 ng/dL (0.78-2.19); T4 Total Thyroxine 7.27 ug/dL (5.5-11.0)
[2020-10-12 10:58] LABS: Thyroid Stimulating Hormone 1.42 uIU/mL (0.47-4.68)
[2020-10-12 11:29] LABS: Folate > 20.0 ng/mL (2.76-20.0); Vitamin B12 904 pg/mL (239-931)
== END ==
PROVIDERS: PCP Student in an Organized Health Care Education/Training Program; Referring Provider Internal Medicine Cardiovascular Disease; Visit Provider Internal Medicine Cardiovascular Disease
DX: R06.02 Shortness of breath (principal); I10 Essential (primary) hypertension; D64.9 Anemia, unspecified
CPT/HCPCS: 36415; 82607; 82746; 83540; 83550; 84436; 84439; 84443

== ENCOUNTER → 2020-10-20 08:47 | Outpatient (CLI) | payer MEDICARE, SELFPAY ==
[2020-10-20 10:32] LABS: Blood Urea Nitrogen 24 mg/dL (7-17); Calcium 9.4 mg/dL (8.4-10.2); Carbon Dioxide 23 mmol/L (22-32); Chloride 104 mmol/L (98-107); Estimated Glomerular Filt Rate 55.4 mL/min (>60); Glucose 140 mg/dL (80-110); HEMOLYSIS < 15 (0-50); Potassium 4.2 mmol/L (3.4-5.1); Sodium 137 mmol/L (137-145)
== END ==
PROVIDERS: PCP Student in an Organized Health Care Education/Training Program; Referring Provider Internal Medicine Cardiovascular Disease; Visit Provider Internal Medicine Cardiovascular Disease
DX: I10 Essential (primary) hypertension (principal)
CPT/HCPCS: 36415; 80048

== ENCOUNTER → 2021-07-13 06:59 | Outpatient (CLI) | payer MEDICARE, SELFPAY ==
[2021-07-13 08:34] LABS: Cholesterol 164 mg/dL (140-199); HDL Cholesterol 60 mg/dL (40-60); LDL Cholesterol Calculated 80 mg/dL (<100); Triglycerides 119 mg/dL (35-150)
== END ==
PROVIDERS: PCP Student in an Organized Health Care Education/Training Program; Referring Provider Internal Medicine Cardiovascular Disease; Visit Provider Internal Medicine Cardiovascular Disease
DX: E78.5 Hyperlipidemia, unspecified (principal)
CPT/HCPCS: 36415; 80061

== ENCOUNTER → 2021-09-06 07:41 | Outpatient (CLI) | payer MEDICARE, SELFPAY ==
--- NOTE | 2021-09-06 | DI.US.S_ITS ---
PROCEDURE: US CAROTID DOPPLER BI INDICATIONS: CAD TECHNIQUE: Color and pulse Doppler interrogation was performed of both carotid systems, with image documentation and velocity measurements. COMPARISON: [facility], , CAROTID ARTERY DOPPLER BIL, 06/21/2013, 9:25. FINDINGS: Stenosis calculations are based on SRU (Society of Radiologists in Ultrasound) criteria. The flow velocities and the arterial waveforms are normal within both carotid arterial systems. Atherosclerotic plaque is seen on both sides. The estimated degree of internal carotid artery stenosis is less than 50%. Antegrade flow is confirmed within both vertebral arteries. IMPRESSION: No hemodynamically significant stenosis is seen. Study similar to the 2014 prior. Atherosclerotic plaque is noted bilaterally. Dictated by: Mick Dong M.D. on 09/06/2021 at 9:04 Approved by: Mick Dong M.D. on 09/06/2021 at 9:05
== END ==
PROVIDERS: PCP Student in an Organized Health Care Education/Training Program; Referring Provider Internal Medicine Cardiovascular Disease; Visit Provider Internal Medicine Cardiovascular Disease
DX: I25.10 Atherosclerotic heart disease of native coronary artery without angina pectoris (principal)
CPT/HCPCS: 93880

== ENCOUNTER → 2021-12-20 12:26 | Outpatient (CLI) | payer MEDICARE, SELFPAY | PROVIDERS: PCP Student in an Organized Health Care Education/Training Program; Referring Provider Student in an Organized Health Care Education/Training Program; Visit Provider Student in an Organized Health Care Education/Training Program | DX: Z78.0 Asymptomatic menopausal state (principal); M85.852 Other specified disorders of bone density and structure, left thigh; M85.851 Other specified disorders of bone density and structure, right thigh | CPT/HCPCS: 77080 ==

== ENCOUNTER → 2022-05-02 09:58 | Outpatient (CLI) | payer OTHER, SELFPAY ==
--- NOTE | 2022-05-02 | DI.US.S_ITS ---
PROCEDURE: US THYROID INDICATIONS: NONTOXIC GOITER TECHNIQUE: Real-time scanning was performed of the thyroid gland, with image documentation. COMPARISON: [facility], US, US THYROID, 10/17/2020, 9:54. FINDINGS: Numerous bilateral thyroid nodules, none significantly changed from 10/17/2020 exam performed at [facility], all of which have a benign spongiform appearance. Thyroid gland is normal in size. IMPRESSION: No significant change numerous bilateral thyroid nodules, all of which have a benign appearance consistent with colloid nodules. Dictated by: Rafa Doe M.D. on 05/02/2022 at 18:40 Approved by: Rafa Doe M.D. on 05/02/2022 at 18:42
== END ==
PROVIDERS: PCP Student in an Organized Health Care Education/Training Program; Referring Provider Student in an Organized Health Care Education/Training Program; Visit Provider Student in an Organized Health Care Education/Training Program
DX: E04.2 Nontoxic multinodular goiter (principal)
CPT/HCPCS: 76536

== ENCOUNTER → 2022-10-30 09:27 | Outpatient (CLI) | payer OTHER, SELFPAY ==
[2022-10-30 12:09] LABS: Add Manual Diff / Slide Review NO; Basophils Absolute Auto 100 /uL (0-100); Basophils Percent Auto 1.1 % (0-2); Eosinophils Absolute Auto 400 /uL (0-450); Eosinophils Percent Auto 3.7 % (2-4); Hematocrit 39.3 % (36-46); Hemoglobin 13.4 g/dL (12.0-16.0); Lymphocytes Absolute Auto 2200 /uL (1100-4500); Lymphocytes Percent Auto 21.1 % (25-40); Mean Corpuscular HGB Conc 34.1 % (30-36); Mean Corpuscular Hemoglobin 32.1 PG (26-34); Mean Corpuscular Volume 94.3 fL (80-100); Monocytes Absolute Auto 1000 /uL (0-900); Monocytes Percent Auto 9.9 % (3-14); Neutrophils Absolute Auto 6700 /uL (1500-7000); Neutrophils Percent Auto 64.2 % (50-75); Platelet Count 368 X10^3/uL (150-400); Red Blood Cell Count 4.17 X10^6/uL (4.0-5.2); Red Cell Distribution Width 12.8 % (11.6-14.8); White Blood Cell Count 10.5 X10^3/uL (4.5-11.0)
[2022-10-30 12:32] LABS: Alanine Aminotransferase 23 IU/L (<35); Albumin 3.8 g/dL (3.5-5.0); Albumin Globulin Ratio 1.4 (1.0-2.8); Alkaline Phosphatase 76 U/L (38-126); Aspartate Aminotransferase 32 IU/L (14-36); Bilirubin Total 0.4 mg/dL (0.2-1.3); Blood Urea Nitrogen 22 mg/dL (7-17); Calcium 9.1 mg/dL (8.4-10.2); Carbon Dioxide 27 mmol/L (22-32); Chloride 103 mmol/L (98-107); Cholesterol 154 mg/dL (140-199); Estimated Glomerular Filt Rate 52 mL/min (>60); Globulin 2.7 g/dL (1.7-4.1); Glucose 87 mg/dL (80-110); HDL Cholesterol 54 mg/dL (40-60); HEMOLYSIS < 15 (0-50); LDL Cholesterol Calculated 74 mg/dL (<100); Potassium 4.8 mmol/L (3.4-5.1); Sodium 137 mmol/L (137-145); Total Protein 6.5 g/dL (6.3-8.2); Triglycerides 131 mg/dL (35-150)
== END ==
PROVIDERS: PCP Student in an Organized Health Care Education/Training Program; Referring Provider Nurse Practitioner Acute Care; Visit Provider Nurse Practitioner Acute Care
DX: E78.5 Hyperlipidemia, unspecified (principal); I25.10 Atherosclerotic heart disease of native coronary artery without angina pectoris
CPT/HCPCS: 36415; 80053; 80061; 85025

== ENCOUNTER → 2023-12-01 14:46 | Outpatient (CLI) | payer MEDICARE, SELFPAY ==
--- NOTE | 2023-12-01 14:49 | DI.ECHO.S_ITS ---
[facility] : : [id number] : : [place] : : [id number] : : Phone: [phone] Echocardiogram Report + + :Name: ANNA WHITE Study Date: 12/01/2023 Height: 63 in : :[facility] ReadingLocation: Weight: 138 lb : : Gender: Female BSA: 1.7 m2 : :: 1935 Age: 88 yrs BP: 165/93 mmHg: :Reason For Study: SHORTNESS OF BREATH : :Ordering Physician: JOSE EDUARDO, : :GINO Merlos Performed By: Rafa Patterson : :Referring: GINO WHITT W : + + Interpretation Summary 1) Normal left ventricular thickness, size, wall motion, and systolic function (EF 60-65%). 2) Normal right ventricular size and function. 3) No significant valvular abnormalities. 4) Compared to the Echo done 11/14/2020, no significant change. Procedure: A two-dimensional transthoracic echocardiogram with color flow and Doppler was performed. The study quality was technically adequate. Comparison is made with the echocardiogram of 11/14/2020. The patient was in sinus rhythm with heart rates between 55-63 bpm during the exam. Left Ventricle: The left ventricle is normal in size and wall thickness. The ejection fraction is estimated to be 60-65%. Left ventricular systolic function is normal. Diastolic parameters suggest probable normal left ventricular diastolic function and normal filling pressures. Right Ventricle: The right ventricle is normal size. The right ventricular systolic function is normal. Atria: The left atrial size is normal. Right atrial size is normal. The interatrial septum grossly appears intact with no obvious evidence for an atrial septal defect. Mitral Valve: The mitral valve is normal. There is no mitral valve stenosis. There is trace mitral regurgitation. Aortic Valve: The aortic valve is grossly normal. The aortic valve is not well visualized. There is no aortic valve stenosis. No aortic regurgitation is present. Tricuspid Valve: The tricuspid valve is not well visualized, but is grossly normal. There is no tricuspid stenosis. There is trace tricuspid regurgitation. The right ventricular systolic pressure is estimated to be at least 26.9 mmHg based on an estimated right atrial pressure of 3 mm Hg. Pulmonic Valve: The pulmonic valve is not well visualized. There is no pulmonic valvular stenosis. There is no pulmonic valvular regurgitation. Great Vessels: The aortic root is normal size. The dimensions of the ascending aorta are normal. The IVC is of normal diameter and collapses greater than 50% with a sniff. This suggests a low right atrial pressure of 3 mm Hg. Pericardium/ Pleura There is no pericardial effusion. There is no pleural effusion. MMode/2D Measurements & Calculations LVIDd: 4.5 cm LVOT diam: 1.8 cm LVIDs: 2.5 cm Ao root diam: 3.0 cm FS: 45.2 % asc Aorta Diam: 3.0 cm IVSd: 0.83 cm LVPWd: 0.77 cm LV majano. diameter/BSA (cm/m^2): 2.7 LV sys. diameter/BSA (cm/m^2): 1.5 LA A2 area: 12.5 cm2 RA long axis: 4.4 cm LA A4 area: 15.0 cm2 RA area: 12.0 cm2 LA length (vol): 5.3 cm RA vol: 27.9 ml LA vol: 29.8 ml RA : 16.9 ml/m2 LA vol index: 18.1 ml/m2 IVC diam: 1.00 cm RVD1 (basal): 3.9 cm RVD2 (mid): 2.9 cm TAPSE: 2.4 cm Doppler Measurements & Calculations Ao V2 max: 146.1 cm/sec LVOT Max Yoni: 123.6 cm/sec Ao V2 mean: 97.1 cm/sec LV V1 max P.1 mmHg Ao max P.5 mmHg LV V1 VTI: 31.3 cm Ao mean P.2 mmHg TIANNA(I,D): 2.3 cm2 Ao V2 VTI: 32.9 cm TIANNA(V,D): 2.0 cm2 sev ratio: 0.95 TIANNA indexed to BSA (cm^2/m^2): 1.4 MV E max yoni: 77.3 cm/sec TR max yoni: 244.6 cm/sec MV A max yoni: 83.7 cm/sec TR max P.9 mmHg MV E/A: 0.92 PA V2 max: 106.3 cm/sec Med Peak E' Yoni: 7.0 cm/sec PA V2 mean: 73.8 cm/sec E/E' med: 11.1 PA mean P.4 mmHg Lat Peak E' Yoni: 9.6 cm/sec PA pr(Accel): 29.3 mmHg E/E' lat: 8.1 E/e' average: 9.6 MV dec time: 0.24 sec SVLVOT): 75.7 ml Reading Physician:03:35 PM
== END ==
LOC: ECHO 14:48
PROVIDERS: PCP Student in an Organized Health Care Education/Training Program; Referring Provider Nurse Practitioner; Visit Provider Nurse Practitioner
DX: R06.02 Shortness of breath (principal)
CPT/HCPCS: 93306

== ENCOUNTER → 2023-12-09 07:02 | Outpatient (CLI) | payer MEDICARE, SELFPAY ==
[2023-12-09 08:07] LABS: Hematocrit 36.6 % (36-46); Hemoglobin 12.3 g/dL (12.0-16.0); Mean Corpuscular HGB Conc 33.6 % (30-36); Mean Corpuscular Hemoglobin 29.6 PG (26-34); Mean Corpuscular Volume 87.9 fL (80-100); Platelet Count 373 X10^3/uL (150-400); Red Blood Cell Count 4.17 X10^6/uL (4.0-5.2); White Blood Cell Count 8.9 X10^3/uL (4.5-11.0)
[2023-12-09 08:41] LABS: Alanine Aminotransferase 17 IU/L (<35); Albumin 3.8 g/dL (3.5-5.0); Albumin Globulin Ratio 1.3 (1.0-2.8); Alkaline Phosphatase 77 U/L (38-126); Aspartate Aminotransferase 24 IU/L (14-36); BUN Creatinine Ratio 18.4 (6-22); Bilirubin Total 0.4 mg/dL (0.2-1.3); Blood Urea Nitrogen 18 mg/dL (7-17); Calcium 9.2 mg/dL (8.4-10.2); Carbon Dioxide 25 mmol/L (22-32); Chloride 105 mmol/L (98-107); Estimated Glomerular Filt Rate 56 mL/min (>60); Glucose 94 mg/dL (80-110); HEMOLYSIS < 15 (0-50); Sodium 137 mmol/L (137-145); Total Protein 6.8 g/dL (6.3-8.2)
[2023-12-09 08:58] LABS: Vitamin D 25 Hydroxy (D3) 68.8 ng/mL (30.0-100.0)
[2023-12-09 09:01] LABS: Free T4, Direct Thyroxine 0.76 ng/dL (0.78-2.19)
[2023-12-09 09:15] LABS: Thyroid Stimulating Hormone 2.04 uIU/mL (0.47-4.68)
== END ==
PROVIDERS: PCP Student in an Organized Health Care Education/Training Program; Referring Provider Nurse Practitioner; Visit Provider Nurse Practitioner
DX: I10 Essential (primary) hypertension (principal); E55.9 Vitamin D deficiency, unspecified; R06.02 Shortness of breath
CPT/HCPCS: 36415; 80053; 82306; 84439; 84443; 85027

== ENCOUNTER → 2024-03-15 09:47 | Outpatient (CLI) | payer MEDICARE, SELFPAY ==
--- NOTE | 2024-03-15 09:49 | DI.RAD.S_ITS ---
PROCEDURE: XR DEXA AXIAL SKELETON INDICATIONS: Other specified disorders of bone density and stru COMPARISON: [facility], , XR DEXA AXIAL SKELETON, 12/20/2021, 13:06. [facility], CR, XR DEXA AXIAL SKELETON, 05/24/2019, 14:52. FINDINGS: Lumbar Spine: Bone mineral density 0.95 g/cm2, T score -0.3, previously -0.9. Left Hip: Bone mineral density 0.84 g/cm2, T score -0.8, similar to prior. Left Femoral Neck: Bone mineral density 0.66 g/cm2, T score -1.7, previously -1.5. Right Hip: Bone mineral density 0.84 g/cm2, T score -0.8, previously -0.7. Right Femoral Neck: Bone mineral density 0.66 g/cm2, T score -1.7, previously -1.7. Fracture Risk Calculation (when applicable): 10-year fracture risk of a major osteoporotic fracture 13 percent and of a hip fracture 3.9 percent. (T score greater or equal to -1.0 to: NORMAL) (T score from -1.1 to -2.4: OSTEOPENIA) (T score less than or equal to -2.5: OSTEOPOROSIS) IMPRESSION: Osteopenia. Improved T-score in the lumbar spine. Similar T-scores elsewhere. Fracture risk percentages above. Follow-up guidelines as follows: Osteoporosis: Consider a repeat DEXA and Vertebral Fracture Assessment (VFA) exam in 2 years or sooner if medically necessary, to reassess this patient's status. Osteopenia: Consider a repeat DEXA in 2-3 years to reassess this patient's status, or if there is a new clinical indication. Normal: Consider a repeat DEXA in 5 years or sooner, or if there is a new clinical indication. All treatment decisions require clinical judgment and consideration of individual patient factors, including patient preferences, comorbidities, previous drug use, risk factors not captured in the FRAX model (e.g., frailty, falls, vitamin D deficiency, increased bone turnover, interval significant decline in bone density ) and possible under- or over-estimation of fracture risk by FRAX. In addition, the NOF Guide recommends that FDA-approved medical therapies be considered in postmenopausal women and men age >= 50 years with a: * Hip or vertebral (clinical or morphometric) fracture * T-score of <=-2.5 at the spine or hip * Ten-year fracture probability by FRAX of >= 3% for hip fracture or >=20% for major osteoporotic fracture. People with diagnosed cases of osteoporosis or at high risk for fracture should have regular bone mineral density tests. For patients eligible for Medicare, routine testing is allowed once every 2 years. The testing frequency can be increased to one year for patients who have rapidly progressing disease, those who are receiving or discontinuing medical therapy to restore bone mass, or have additional risk factors. Dictated by: Mark Fitzpatrick M.D. on 03/15/2024 at 15:14 Approved by: Mark Fitzpatrick M.D. on 03/15/2024 at 15:16
== END ==
PROVIDERS: PCP Physician Assistant; Referring Provider Physician Assistant; Visit Provider Physician Assistant
DX: M85.89 Other specified disorders of bone density and structure, multiple sites
CPT/HCPCS: 77080

== ENCOUNTER → 2024-07-29 13:51 | Outpatient (CLI) | payer MEDICARE, SELFPAY ==
--- NOTE | 2024-07-29 13:52 | DI.US.S_ITS ---
PROCEDURE: US THYROID INDICATIONS: SWELLING/MASS LEFT SUPERIOR NECK - PROVIDER FELT PER PT TECHNIQUE: Real-time scanning was performed of the thyroid gland, with image documentation. COMPARISON: [facility], US, US THYROID, 05/02/2022, 10:15. FINDINGS: Thyroid: Right lobe measures 5.0 x 1.3 x 1.4 cm. Left lobe measures 5.3 x 1.6 x 1.4 cm. Isthmus is 0.2 cm thick. Echotexture is homogeneous. Nodule number: 1 Location: Right superior lateral Size: 2.4 x 1.3 x 1.0 cm. Composition: Predominantly solid Echogenicity: Hypoechoic Shape: wider than tall. Margins: Smooth Echogenic foci: Punctate Total points: 6 ACR TI-RADS category: 4 Nodule number: 2 Location: Left mid Size: 1.3 x 1.1 x 0.6 cm. Composition: Predominantly cystic Echogenicity: Hypoechoic Shape: wider than tall. Margins: Smooth Echogenic foci: Punctate Total points: 5 ACR TI-RADS category: 4 IMPRESSION: Stable category 4 nodules measure up to 2.4 cm on right and 1.3 cm on the left ACR TI-RADS definitions and recommendations: TI-RADS 1 (benign): 0 points. FNA not needed. TI-RADS 2 (not suspicious): 2 points. FNA not needed. TI-RADS 3: 3 points. * FNA if 2.5 cm or larger, follow up if 1.5 cm or larger (at 1, 3, and 5 years). TI-RADS 4: 4-6 points. * FNA if 1.5 cm or larger, follow up if 1 cm or larger (at 1, 2, 3, and 5 years). TI-RADS 5: 7 points or more. * FNA if 1 cm or larger, follow up if 0.5 cm or larger (every year for 5 years). 1. Dictated by: Geronimo Chacon M.D. on 07/30/2024 at 15:57 Approved by: Geronimo Chacon M.D. on 07/30/2024 at 16:07
== END ==
PROVIDERS: Family Provider Physician Assistant; PCP Physician Assistant; Referring Provider Physician Assistant; Visit Provider Physician Assistant
DX: E04.2 Nontoxic multinodular goiter (principal); R22.1 Localized swelling, mass and lump, neck
CPT/HCPCS: 76536

== ENCOUNTER → 2024-08-16 14:54 | Outpatient (CLI) | payer MEDICARE, SELFPAY ==
--- NOTE | 2024-08-16 14:55 | DI.US.S_ITS ---
PROCEDURE: US SOFT TISSUE HEAD AND NECK INDICATIONS: cervical lymphadenopathy TECHNIQUE: Real-time scanning was performed of the neck region of interest, with image documentation. COMPARISON: None. FINDINGS/IMPRESSION: Targeted ultrasound of the region of concern demonstrates a hypoechoic, complex masslike lesion measuring 1.3 x 0.8 x 1.3 cm. Findings raise the concern for a metastatic lymph node. Recommend neck CT with contrast for further evaluation. Dictated by: Everett Caballero M.D. on 08/16/2024 at 16:47 Approved by: Everett Caballero M.D. on 08/16/2024 at 16:48
== END ==
PROVIDERS: Family Provider Physician Assistant; PCP Physician Assistant; Referring Provider Physician Assistant; Visit Provider Physician Assistant
DX: R59.0 Localized enlarged lymph nodes (principal)
CPT/HCPCS: 76536

== ENCOUNTER → 2024-08-18 12:32 | Outpatient (CLI) | payer MEDICARE, SELFPAY ==
--- NOTE | 2024-08-18 12:35 | DI.CT.S_ITS ---
PROCEDURE: CT SOFT TISSUE NECK W CON INDICATIONS: lymphadenopathy TECHNIQUE: After the administration of intravenous contrast, 3.0 mm axial sections acquired from the sella to the aortic arch. 3 mm thick coronal and sagittal reformats were generated. For radiation dose reduction, the following was used: automated exposure control. COMPARISON: [facility], , US THYROID, 07/29/2024, 14:43. [facility], , US SOFT TISSUE HEAD AND NECK, 08/16/2024, 15:10. FINDINGS: Skull Base: The visualized intracranial contents, skull, and orbits are unremarkable. Visualized paranasal sinuses are clear. Pharynx and Larynx: The nasopharyngeal airway is patent and midline. Parapharyngeal soft tissues including palatine tonsils and base of the tongue are normal. Retropharyngeal space unremarkable. Normal appearance of the false and true vocal cords. Muscles and Fascial Planes: Fascial planes are well maintained. No abscess or mass lesion. Lymph Nodes: Near the area of concern marked on the patient's skin, there are 2 small lymph nodes noted measuring 1.0 by 0.8 cm and 0.9 x 0.8 cm. Additional similar sized scattered lymph nodes are noted in the submandibular and deep cervical chains Vasculature: Unremarkable. Submandibular and Parotid Glands: Normal in size and attenuation. Thyroid: Exophytic irregular nodule arises from the upper pole the right thyroid measuring 2.2 cm Bones: No acute fracture. No osteolytic or blastic lesion is evident. Normal bone mineralization. Lung Apices: Emphysematous changes noted involving the lung apices IMPRESSION: At the area of concern, there are at least 2 small subcentimeter lymph nodes present. No nodule directly corresponds with the dimensions of the nodule in the prior ultrasound. Consider clinical follow-up. Exophytic right thyroid nodule lobe measures 2.2 cm. Corresponds with prior exam. Approved by: Geronimo Chacon M.D. on 08/18/2024 at 18:29
[2024-08-18 14:08] LABS: Estimated Glomerular Filt Rate 48 mL/min (>60)
== END ==
PROVIDERS: Physician Assistant; Family Provider Physician Assistant; PCP Physician Assistant; Referring Provider Physician Assistant
DX: R59.0 Localized enlarged lymph nodes (principal)
CPT/HCPCS: 36415; 70491; 82565; Q9967

== ENCOUNTER 2024-09-03 15:15 | Outpatient (RCR) | payer MEDICARE, SELFPAY ==
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
== END 2024-09-07 10:21 | disposition home or self-care (01) ==
LOC: PHYS 15:15
PROVIDERS: Family Provider Physician Assistant; PCP Physician Assistant; Referring Provider Physician Assistant; Visit Provider Physician Assistant
DX: M54.50 Low back pain, unspecified (principal)
CPT/HCPCS: 97110; 97112; 97140; 97162; 97535

== ENCOUNTER 2024-09-06 01:16 | Inpatient (IN) | payer MEDICARE, SELFPAY ==
[2024-09-06] VITALS (113 sets, daily range): BP systolic 65–122; BP diastolic 33–71; PULSE 56–93; RESP 18–43; TEMP 28.7–37.3; O2SAT 85–100; BMI 24.7; BMI 24.2
--- NOTE | 2024-09-06 01:25 | EKG_ITS ---
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
[2024-09-06 01:33] LABS: Add Manual Diff / Slide Review NO; Basophils Absolute Auto 200 /uL (0-100); Basophils Percent Auto 0.9 % (0-2); Eosinophils Absolute Auto 0 /uL (0-450); Eosinophils Percent Auto 0.1 % (2-4); Hematocrit 47.1 % (36-46); Hemoglobin 15.3 g/dL (12.0-16.0); Lymphocytes Absolute Auto 2400 /uL (1100-4500); Lymphocytes Percent Auto 12.6 % (25-40); Mean Corpuscular HGB Conc 32.6 % (30-36); Mean Corpuscular Hemoglobin 29.8 PG (26-34); Mean Corpuscular Volume 91.5 fL (80-100); Monocytes Absolute Auto 500 /uL (0-900); Monocytes Percent Auto 2.6 % (3-14); Neutrophils Absolute Auto 16100 /uL (1500-7000); Neutrophils Percent Auto 83.8 % (50-75); Platelet Count 408 X10^3/uL (150-400); Red Blood Cell Count 5.14 X10^6/uL (4.0-5.2); Red Cell Distribution Width 13.3 % (11.6-14.8); White Blood Cell Count 19.2 X10^3/uL (4.5-11.0)
--- NOTE | 2024-09-06 01:46 | DI.CT.S_ITS ---
PROCEDURE: CT ABDOMEN PELVIS W CON INDICATIONS: LLQ abd pain TECHNIQUE: After the administration of intravenous contrast, axial sections acquired from the lung bases to the pubic symphysis. Coronal and sagittal reformats were performed. For radiation dose reduction, the following was used: automated exposure control, adjustment of mA and/or kV according to patient size. COMPARISON: [facility], CT, CT ANGIO CHEST PE PROTOCOL, 10/05/2020, 20:07. FINDINGS: Image quality: Diagnostic. Lower Chest: 3 mm right posterior subpleural nodule is partially included (5/). This may have been present on prior CT from 10/05/2020, but is partially obscured by atelectasis. 1.2 cm oval right breast mass is similar in size when compared to the prior CT. Lung bases are otherwise clear. ABDOMEN: Liver: No solid mass. Gallbladder: Gallbladder is mildly distended and contains a single calcified gallstone. No pericholecystic inflammatory changes. Biliary ducts: No biliary dilation. Pancreas: No ductal dilation. Spleen: Size is within normal limits. Adrenal Glands: 1.1 cm left adrenal nodule is stable in size when compared to the CT from 10/05/2020 and is most likely benign. No right adrenal nodule. Kidneys and Ureters: No hydronephrosis. No solid mass. No complex renal cystic lesion which requires follow up. Bowel and peritoneum: Moderate hiatal hernia. Liquid stool material is seen throughout the majority of the colon. There is bowel wall thickening in the sigmoid colon. Multiple diverticula are present. Small amount of adjacent free fluid in the pelvis and left pericolic gutter. Mild diffuse pericolonic fat stranding. Normal appendix. Nondilated fluid-filled loops of small bowel. No pneumoperitoneum. Ventral Wall: No significant ventral hernia. Abdominal Nodes: No retroperitoneal or mesenteric adenopathy by size criteria. Vessels: Aorta and inferior vena cava are normal in size. Moderate aortic atherosclerotic calcifications. PELVIS: Pelvic Organs: Status post hysterectomy. Bladder: No bladder wall thickening, accounting for underdistention. Pelvic Nodes: No enlarged lymph nodes. Miscellaneous: No inguinal hernias are seen. Bones: No aggressive osseous abnormality. Multilevel degenerative changes in the spine with mild levoconvex curvature. IMPRESSION: 1. Short segment bowel wall thickening in the sigmoid colon is suspicious for a nonspecific colitis versus diverticulitis. There is liquid stool material throughout the more proximal colon, and a more generalized colitis is not excluded. No signs of bowel obstruction. Recommend follow-up imaging or colonoscopy to confirm resolution and exclude underlying malignancy. 2. Small amount of free fluid in the pelvis is likely reactive. 3. Cholelithiasis. 4. Moderate hiatal hernia. 5. Oval 1.2 cm mass in the right breast appears similar in size when compared to the CT from 10/05/2020. Consider diagnostic mammogram and ultrasound for further evaluation. There is no significant discrepancy when compared to the overnight preliminary report. Approved by: Bernardo Chaparro M.D. on 09/06/2024 at 8:43
--- NOTE | 2024-09-06 01:57 | ED_ITS ---
HPI - Abdominal Pain General Chief Complaint: Abdominal Pain Stated Complaint: LLQ pain Time Seen by Provider: 09/06/24 01:19 Source: patient and EMS Mode of arrival: EMS History of Present Illness HPI narrative: 88-year-old female taking amoxicillin day 7 for anterior cervical lymphadenopathy prescribed by her PCP, complains of left lower quadrant abdominal pain onset last night, no nausea or vomiting, no diarrhea. No black or red stools. Last bowel movement earlier in the day was formed, without black or red or mucoid appearance. She is not feel feverish. She has not have painful or frequent urination. She does not have cough chest pain shortness of breath. She has no back pain, headache, neck pain, photophobia. No recent sore throat symptoms. Related Data Home Medications Medication Instructions Recorded Confirmed benazepril 20 mg tablet 20 mg PO BID ##0 01/10/13 09/10/22 aspirin 81 mg chewable tablet 81 mg PO QDAY ##0 01/15/13 09/10/22 metoprolol tartrate 50 mg tablet 50 mg PO BID #0 tabs 01/15/13 09/10/22 Previous Rx's Medication Instructions Recorded econazole nitrate 1 % topical cream 1 applic topical BID #85 grams 09/10/22 Allergies Allergy/AdvReac Type Severity Reaction Status Date / Time tramadol [TRAMADOL] Allergy Intermediate Verified 09/06/24 16:37 atorvastatin [ATORVASTATIN] AdvReac Mild HEADACHES Verified 09/06/24 05:55 diphenhydramine AdvReac Mild HYPERACTIVE Verified 09/06/24 05:55 [DIPHENHYDRAMINE] Patient History Social History household members: none Smoking Status: Former smoker alcohol intake: never Smoking Status: Former smoker Exam Narrative Exam Narrative: GENERAL: Well-developed patient, in mild distress. HEAD: Atraumatic. Normocephalic. EYES: Pupils equal round and reactive. Extraocular motions intact. No scleral icterus. No injection or drainage. ENT: Nose without bleeding, purulent drainage. Throat without erythema, tonsillar hypertrophy or exudate. Airway patent. NECK: Trachea midline. Non tender CARDIOVASCULAR: Regular rate and rhythm without murmurs, gallops, or rubs. RESPIRATORY: Clear to auscultation. Breath sounds equal bilaterally. No wheezes, rales, or rhonchi. GASTROINTESTINAL: Abdomen soft, non-tender, nondistended. EXTREMITIES: No edema or joint tenderness. BACK: Nontender without deformity or crepitance. No flank tenderness. NEURO: AOx3. Motor functions grossly nonfocal SKIN: No rash or erythema of visible areas Initial Vital Signs Initial Vital Signs: Vital Signs Pulse Rate 75 09/06/24 01:22 Respiratory Rate 20 09/06/24 01:22 Blood Pressure 91/49 L 09/06/24 01:22 Pulse Oximetry 95 09/06/24 01:22 Oxygen Delivery Method Room Air 09/06/24 01:22 Course Orders Ordered: Albuterol (Albuterol 2.5 Mg/3 Ml Neb (Adult)) 2.5 mg INH [id number] PRN PRN Reason: Dyspnea Aspirin (Aspirin 81 Mg Chew Tab) 81 mg PO DAILY [facility] Last Admin: 09/06/24 04:05 Dose: 81 mg Documented By: SHANE Benzonatate (Benzonatate 100 Mg Capsule) 100 mg PO TID PRN PRN Reason: Cough Heparin Sodium (Porcine) (Heparin Flush (Cl/Picc/Mid-Line) 50 Unit/5 Ml Syringe) 50 unit IV PRN PRN PRN Reason: Flush Sodium Chloride (Normal Saline 0.9%) 1,000 mls @ 125 mls/hr IV CONT [facility] Last Admin: 09/06/24 23:05 Dose: 125 mls/hr Documented By: Infusion: 09/06/24 23:05 Dose: Infused Documented By: Admin: 09/06/24 15:38 Dose: 125 mls/hr Documented By: Infusion: 09/06/24 14:15 Dose: Infused Documented By: Admin: 09/06/24 06:15 Dose: 125 mls/hr Documented By: Trimethoprim/Sulfamethoxazole (120 mg/ Dextrose) 257.5 mls @ 171.667 mls/hr IV Q6H [facility] Last Infusion: 09/06/24 22:30 Dose: Infused Documented By: Admin: 09/06/24 20:59 Dose: 171.6 mls/hr Documented By: Infusion: 09/06/24 17:12 Dose: Infused Documented By: Admin: 09/06/24 15:37 Dose: 171.667 mls/hr Documented By: Infusion: 09/06/24 10:12 Dose: Infused Documented By: Admin: 09/06/24 08:42 Dose: 171.667 mls/hr Documented By: DM NOREPINEPHRINE BITARTRATE/D5W (Levophed) 4 mg in 250 mls @ 23.25 mls/hr IV TITRATE ASIM; Protocol Last Admin: 09/06/24 19:49 Dose: 0.2 mcg/kg/min, 46.5 mls/hr Documented By: Titration: 09/06/24 19:49 Dose: Infused Documented By: Titration: 09/06/24 15:55 Dose: 0.2 mcg/kg/min, 46.5 mls/hr Documented By: Titration: 09/06/24 15:50 Dose: 0.18 mcg/kg/min, 41.85 mls/hr Documented By: Titration: 09/06/24 15:45 Dose: 0.16 mcg/kg/min, 37.2 mls/hr Documented By: Titration: 09/06/24 15:40 Dose: 0.14 mcg/kg/min, 32.55 mls/hr Documented By: Titration: 09/06/24 15:30 Dose: 0.12 mcg/kg/min, 27.9 mls/hr Documented By: Titration: 09/06/24 14:46 Dose: 0.14 mcg/kg/min, 32.55 mls/hr Documented By: Titration: 09/06/24 14:41 Dose: 0.12 mcg/kg/min, 27.9 mls/hr Documented By: Titration: 09/06/24 14:36 Dose: 0.1 mcg/kg/min, 23.25 mls/hr Documented By: Titration: 09/06/24 14:31 Dose: 0.08 mcg/kg/min, 18.6 mls/hr Documented By: Titration: 09/06/24 14:28 Dose: 0.06 mcg/kg/min, 13.95 mls/hr Documented By: Titration: 09/06/24 14:20 Dose: 0.04 mcg/kg/min, 9.3 mls/hr Documented By: Admin: 09/06/24 13:53 Dose: 0.02 mcg/kg/min, 4.65 mls/hr Documented By: JONATHAN Melatonin (Melatonin 3 Mg Tablet) 9 mg PO BEDTIME PRN PRN Reason: insomnia Metoclopramide HCl (Metoclopramide 10 Mg/2 Ml Inj) 10 mg IV Q6HR PRN PRN Reason: Nausea And Vomiting Last Admin: 09/06/24 20:59 Dose: 10 mg Documented By: Morphine Sulfate (Morphine 4 Mg/Ml Inj) 3 mg IV Q2HR PRN PRN Reason: Pain, Severe (7-10) Last Admin: 09/06/24 20:06 Dose: 3 mg Documented By: Naloxone HCl (Naloxone 0.4 Mg/Ml Vial) 0.2 mg IV Q2MIN PRN PRN Reason: Opiate Reversal Ondansetron HCl (Ondansetron 4 Mg/2 Ml Inj) 4 mg IV NOW PRN PRN Reason: Nausea And Vomiting Last Admin: 09/06/24 06:52 Dose: 4 mg Documented By: Ondansetron HCl (Ondansetron 4 Mg Odt) 4 mg PO NOW PRN PRN Reason: Nausea And Vomiting Ondansetron HCl (Ondansetron 4 Mg/2 Ml Inj) 4 mg IV Q8HR PRN PRN Reason: Nausea And Vomiting Last Admin: 09/06/24 16:37 Dose: 4 mg Documented By: DOMINIQUE Oxycodone HCl (Oxycodone Ir 5 Mg Tablet) 5 mg PO Q3H PRN PRN Reason: Pain, Moderate (4-6) Last Admin: 09/06/24 15:38 Dose: 5 mg Documented By: DOMINIQUE Discontinued Medications Hydromorphone HCl (Hydromorphone 0.5 Mg Inj) 0.5 mg IV NOW ONE Stop: 09/06/24 03:10 Last Admin: 09/06/24 04:06 Dose: 0.5 mg Documented By: SHANE Sodium Chloride (Normal Saline 0.9%) 1,000 mls @ 1,000 mls/hr IV BOLUS ONE Stop: 09/06/24 02:45 Last Infusion: 09/06/24 05:29 Dose: Infused Documented By: Admin: 09/06/24 02:13 Dose: 1,000 mls/hr Documented By: RYLEE Ceftriaxone Sodium 2,000 mg/ (Sodium Chloride) 100 mls @ 200 mls/hr IV NOW ONE Stop: 09/06/24 01:48 Last Admin: 09/06/24 02:14 Dose: Not Given Documented By: RYLEE Ceftriaxone Sodium 2,000 mg/ (Sodium Chloride) 100 mls @ 200 mls/hr IV NOW ONE Stop: 09/06/24 02:03 Last Infusion: 09/06/24 03:51 Dose: Infused Documented By: Admin: 09/06/24 02:40 Dose: 200 mls/hr Documented By: RYLEE NOREPINEPHRINE BITARTRATE/D5W (Levophed) 4 mg in 250 mls @ 23.814 mls/hr IV TITRATE ASIM; Protocol Last Admin: 09/06/24 04:39 Dose: Not Given Documented By: SHANE Piperacillin Sod/Tazobactam (Sod 4.5 gm/ Sodium Chloride) 100 mls @ 200 mls/hr IV NOW ONE Stop: 09/06/24 02:23 Last Infusion: 09/06/24 04:39 Dose: Infused Documented By: Admin: 09/06/24 04:05 Dose: 200 mls/hr Documented By: SHANE Piperacillin Sod/Tazobactam (Sod 3.375 gm/ Sodium Chloride) 100 mls @ 25 mls/hr IV Q8H [facility] Last Admin: 09/06/24 08:21 Dose: Not Given Documented By: JONATHAN Sodium Chloride (Normal Saline 0.9%) 1,000 mls @ 1,000 mls/hr IV BOLUS ONE Stop: 09/06/24 10:50 Last Infusion: 09/06/24 11:54 Dose: Infused Documented By: Admin: 09/06/24 10:05 Dose: 1,000 mls/hr Documented By: JONATHAN Sodium Chloride (Normal Saline 0.9%) 1,000 mls @ 1,000 mls/hr IV BOLUS ONE Stop: 09/06/24 12:43 Last Infusion: 09/06/24 12:50 Dose: Infused Documented By: Admin: 09/06/24 11:50 Dose: 1,000 mls/hr Documented By: JONATHAN Potassium Chloride (Potassium Chloride 20 Meq Tab) 40 meq PO NOW ONE Stop: 09/06/24 09:31 Last Admin: 09/06/24 10:04 Dose: 40 meq Documented By: JONATHAN Vital Signs Vital signs: Vital Signs - 8 hr 09/06/24 01:22 09/06/24 01:22 09/06/24 01:30 Pulse Rate 75 59 L Respiratory Rate 20 Blood Pressure 91/49 L 83/50 L Pulse Oximetry 95 Oxygen Delivery Method Room Air 09/06/24 01:30 09/06/24 01:43 09/06/24 01:46 Pulse Rate 67 64 Respiratory Rate Blood Pressure 80/54 L Pulse Oximetry 98 96 Oxygen Delivery Method 09/06/24 02:00 09/06/24 02:07 09/06/24 02:07 Pulse Rate 64 63 Respiratory Rate Blood Pressure 79/50 L Pulse Oximetry 98 99 Oxygen Delivery Method 09/06/24 02:32 09/06/24 02:34 09/06/24 02:34 Pulse Rate 58 L 72 Respiratory Rate Blood Pressure 118/59 L Pulse Oximetry 100 Oxygen Delivery Method 09/06/24 02:45 09/06/24 02:45 09/06/24 03:00 Pulse Rate 66 Respiratory Rate 18 Blood Pressure 122/58 L 111/52 L Pulse Oximetry 100 Oxygen Delivery Method 09/06/24 03:00 09/06/24 03:15 09/06/24 03:15 Pulse Rate 67 70 Respiratory Rate 20 19 Blood Pressure 98/57 L Pulse Oximetry 98 98 Oxygen Delivery Method 09/06/24 03:30 Pulse Rate 68 Respiratory Rate 18 Blood Pressure Pulse Oximetry 98 Oxygen Delivery Method MDM - Abdominal Pain Lab Data Attestation: I reviewed the patient's lab results. 09/06/24 04:50 09/06/24 04:50 Labs: Lab Results 09/06/24 Range/Units 01:17 WBC 19.2 H (4.5-11.0) X10^3/uL RBC 5.14 (4.0-5.2) X10^6/uL Hgb 15.3 (12.0-16.0) g/dL Hct 47.1 H (36-46) % MCV 91.5 (80-100) fL MCH 29.8 (26-34) PG MCHC 32.6 (30-36) % RDW 13.3 (11.6-14.8) % Plt Count 408 H (150-400) X10^3/uL Neut % (Auto) 83.8 H (50-75) % Lymph % (Auto) 12.6 L (25-40) % [place] % (Auto) 2.6 L (3-14) % Eos % (Auto) 0.1 L (2-4) % Baso % (Auto) 0.9 (0-2) % Neut # (Auto) 28575 H (4004-2811) /uL Lymph # (Auto) 2400 (7704-7803) /uL [place] # (Auto) 500 (0-900) /uL Eos # (Auto) 0 (0-450) /uL Baso # (Auto) 200 H (0-100) /uL Sodium 136 L (137-145) mmol/L Potassium 4.3 (3.4-5.1) mmol/L Chloride 102 (98-107) mmol/L Carbon Dioxide 15 L (22-32) mmol/L BUN 31 H (7-17) mg/dL Creatinine 1.60 H (0.52-1.04) mg/dL Estimated GFR 31 L (>60) mL/min BUN/Creatinine Ratio 19.4 (6-22) Glucose 204 H (70-99) mg/dL Lactate 7.4 H* (0.7-2.1) mmol/L Calcium 10.3 H (8.4-10.2) mg/dL Total Bilirubin 1.7 H (0.2-1.3) mg/dL AST 46 H (14-36) IU/L ALT 26 (<35) IU/L Alkaline Phosphatase 108 (38-126) U/L Total Protein 7.4 (6.3-8.2) g/dL Albumin 4.2 (3.5-5.0) g/dL Globulin 3.2 (1.7-4.1) g/dL Albumin/Globulin Ratio 1.3 (1.0-2.8) Lipase 151 (23-300) U/L ECG Data Attestation: I personally reviewed and interpreted this ECG as follows: Interpretation: Normal sinus rhythm with rate of 68, no obvious ST segment elevation or depression changes. NE 208, QRS 84, QTC 442. MDM Narrative Medical decision making narrative: 88-year-old female day 7 oral amoxicillin for anterior cervical lymphadenopathy event, left lower quadrant abdominal pain since last night, presenting with soft blood pressure, afebrile. Screening labs sent. IV fluid bolus initiated. Blood culture sent. IV ceftriaxone empiric pending blood in urine culture. Lactate 7 elevated. We will expand antibiotic coverage to IV Zosyn. CT abdomen and pelvis with IV contrast ordered. Performed. Results pending. Patient had loose stool in the CT scanner, not apparently black or red, we will order GI pathogens panel. Blood pressure improved with first IV crystalloid liter completed from EMS. SBP 118. Hold on pressors for now. Repeat lactate after second IV NS bag infused. CT abdomen and pelvis. Impressions: ?Although underdistended there is apparent wall thickening and mucosal enhancement involving a portion of the sigmoid colon. In infectious or inflammatory processes suspect. Please see above for further discussion. Follow up to confirm resolution is advised. Small amounts of abdominopelvic free fluid. A mildly lobulated nodule in the right breast measures 1.2 cm. Nonurgent mammographic correlation is recommended. This will need to be followed up. Cholelithiasis. No pericholecystic inflammation. See teleradiology report. [id number], case discussed with hospitalist Dr. Macedo, who accepts patient for admission. 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
[2024-09-06 02:07] LABS: Alanine Aminotransferase 26 IU/L (<35); Albumin 4.2 g/dL (3.5-5.0); Albumin Globulin Ratio 1.3 (1.0-2.8); Alkaline Phosphatase 108 U/L (38-126); Aspartate Aminotransferase 46 IU/L (14-36); BUN Creatinine Ratio 19.4 (6-22); Bilirubin Total 1.7 mg/dL (0.2-1.3); Blood Urea Nitrogen 31 mg/dL (7-17); Calcium 10.3 mg/dL (8.4-10.2); Carbon Dioxide 15 mmol/L (22-32); Chloride 102 mmol/L (98-107); Estimated Glomerular Filt Rate 31 mL/min (>60); Globulin 3.2 g/dL (1.7-4.1); Glucose 204 mg/dL (70-99); HEMOLYSIS 21 (0-50); Lipase 151 U/L (23-300); Potassium 4.3 mmol/L (3.4-5.1); Sodium 136 mmol/L (137-145); Total Protein 7.4 g/dL (6.3-8.2)
[2024-09-06 02:08] LABS: Lactate (Lactic Acid) 7.4 mmol/L (0.7-2.1)
[2024-09-06] MEDS: SODIUM CHLORIDE 0.9% 1,000 ML 1000 ML IV ×3 (02:13→11:50)
[2024-09-06] MEDS: cefTRIAXone 2,000 MG in SODIUM CHLORIDE 0.9% 100 ML 200 MG IV (02:40)
[2024-09-06 03:25] LABS: Reflexed Lactate in 2 Hours Y
[2024-09-06] MEDS: PIPERACILLIN/TAZO 4.5 GM in SODIUM CHLORIDE 0.9% 100 ML IV (04:05)
[2024-09-06] MEDS: ASPIRIN 81 MG CHEW TAB PO (04:05)
[2024-09-06] MEDS: HYDROMORPHONE 0.5 MG INJ IV (04:06)
[2024-09-06 04:57] LABS: Appearance Urine UA CLEAR; Bilirubin Urine UA 1+ (NEGATIVE); Color Urine UA YELLOW; Glucose Urine UA NEGATIVE (Negative); Ketones Urine UA TRACE (NEGATIVE); Leukocyte Esterase Urine UA NEGATIVE (NEGATIVE); Nitrite Urine UA POSITIVE (Negative); Occult Blood Urine UA NEGATIVE (Negative); Protein Urine UA 2+ (Negative)
[2024-09-06 05:05] LABS: Ictotest Urine Negative (Negative)
[2024-09-06 05:06] LABS: Bacteria Urine Few (2-10); Culture Indicated Urine Specimen Cultured; RBC Urine 0-1/HPF (0-5/HPF); Squamous Epithelial Cell Urine 0-1 /HPF (0-5/HPF); Urine Volume 10mL (spun); WBC Urine 0-1/HPF (0-5/HPF)
[2024-09-06 05:11] LABS: Lactate (Lactic Acid) 4.7 mmol/L (0.7-2.1)
[2024-09-06 05:24] LABS: Adenovirus F 40/41 Not Detected (Not Detect); Astrovirus Not Detected (Not Detect); Campylobacter Not Detected (Not Detect); Clostridium difficile toxin AB Not Detected (Not Detect); Cryptosporidium Not Detected (Not Detect); Cyclospora cayetanensis Not Detected (Not Detect); Entamoeba histolytica Not Detected (Not Detect); Enteroaggregative E.coli Not Detected (Not Detect); Enteropathogenic E.coli Not Detected (Not Detect); Enterotoxigenic E.coli It/st Not Detected (Not Detect); Giardia lamblia Not Detected (Not Detect); Norovirus GI/GII Not Detected (Not Detect); Plesiomonsa shigelloides Not Detected (Not Detect); Rotavirus A Not Detected (Not Detect); Salmonella Not Detected (Not Detect); Sapovirus Not Detected (Not Detect); Shiga-like toxin-prod E.coli Not Detected (Not Detect); Shigella/Enteroinvasive E.coli Not Detected (Not Detect); Vibrio Not Detected (Not Detect); Vibrio cholerae Not Detected (Not Detect)
--- NOTE | 2024-09-06 05:27 | PC.NURSE ---
Report called to Heena RN
[2024-09-06] MEDS: SODIUM CHLORIDE 0.9% 1,000 ML 125 ML IV ×3 (06:15→23:05)
[2024-09-06 06:17] LABS: Add Manual Diff / Slide Review NO; Basophils Absolute Auto 100 /uL (0-100); Basophils Percent Auto 0.6 % (0-2); Eosinophils Absolute Auto 0 /uL (0-450); Hematocrit 38.7 % (36-46); Hemoglobin 12.6 g/dL (12.0-16.0); Lymphocytes Absolute Auto 800 /uL (1100-4500); Lymphocytes Percent Auto 5.5 % (25-40); Mean Corpuscular HGB Conc 32.6 % (30-36); Mean Corpuscular Hemoglobin 29.4 PG (26-34); Monocytes Absolute Auto 1100 /uL (0-900); Monocytes Percent Auto 7.3 % (3-14); Neutrophils Absolute Auto 12700 /uL (1500-7000); Neutrophils Percent Auto 86.6 % (50-75); Platelet Count 344 X10^3/uL (150-400); Red Cell Distribution Width 13.3 % (11.6-14.8); White Blood Cell Count 14.7 X10^3/uL (4.5-11.0)
--- NOTE | 2024-09-06 06:19 | PM.HP.1 ---
History of Present Illness History of Present Illness Chief complaint: LLQ pain Narrative: 88 years old female with hypertension, hyperlipidemia, CAD presented to the ER with left lower quadrant abdominal pain, nausea, vomiting and loose stools in the last couple of days. The patient was prescribed oral amoxicillin day 7 for anterior cervical lymphadenopathy. Denies any hematemesis or melena. Denies any fever, shortness of breath or chest pain. In the ER she was found to have severe sepsis with sigmoid colitis and was started on Zosyn and fluid boluses. Laboratory was unremarkable for lactic acid of 7.4, creatinine 1.6, BUN 31, calcium of 10.3, AST 46, total bilirubin 1.7, lipase 151, stool positive for Yersinia enterocolitica. [facility] Social History Smoking Status: Former smoker Meds Home Medications and Allergies Home Medications Medication Instructions Recorded Confirmed Type benazepril 20 mg tablet 20 mg PO BID ##0 01/10/13 09/10/22 History aspirin 81 mg chewable tablet 81 mg PO QDAY ##0 01/15/13 09/10/22 History metoprolol tartrate 50 mg tablet 50 mg PO BID #0 tabs 01/15/13 09/10/22 History econazole nitrate 1 % topical cream 1 applic topical BID #85 grams 09/10/22 09/10/22 Rx Allergies Allergy/AdvReac Type Severity Reaction Status Date / Time tramadol [TRAMADOL] Allergy Unknown Unverified 09/06/24 05:55 atorvastatin [ATORVASTATIN] AdvReac Mild HEADACHES Verified 09/06/24 05:55 diphenhydramine AdvReac Mild HYPERACTIVE Verified 09/06/24 05:55 [DIPHENHYDRAMINE] Review of Systems Review of Systems ROS: Yes All systems reviewed with the patient and are negative except as otherwise documented Constitutional Constitutional: Reports as per HPI and Reports system reviewed and no additional complaints, except as documented Eyes Eyes: Reports as per HPI and Reports system reviewed and no additional complaints, except as documented ENT Ears, Nose, Mouth, and Throat: Yes as per HPI and Yes system reviewed and no additional complaints, except as documented Cardiovascular Cardiovascular: Reports system reviewed and no additional complaints, except as documented Respiratory Respiratory: Reports system reviewed and no additional complaints, except as documented Gastrointestinal Gastrointestinal: Reports system reviewed and no additional complaints, except as documented Genitourinary Genitourinary: Reports system reviewed and no additional complaints, except as documented Musculoskeletal Musculoskeletal: Reports system reviewed and no additional complaints, except as documented, Reports abnormal gait and Reports numbness Neurologic Neurologic: Reports system reviewed and no additional complaints, except as documented, Reports abnormal gait, Reports confusion and Reports numbness Psychiatric Psychiatric: Reports system reviewed and no additional complaints, except as documented and Reports confusion Exam Vital Signs (past 8 hours): - 09/06/24 01:22 09/06/24 01:22 09/06/24 01:30 Temperature Pulse Rate 75 59 L Respiratory Rate 20 Blood Pressure 91/49 L 83/50 L Pulse Oximetry 95 Oxygen Delivery Method Room Air 09/06/24 01:30 09/06/24 01:43 09/06/24 01:46 Temperature Pulse Rate 67 64 Respiratory Rate Blood Pressure 80/54 L Pulse Oximetry 98 96 Oxygen Delivery Method 09/06/24 02:00 09/06/24 02:07 09/06/24 02:07 Temperature Pulse Rate 64 63 Respiratory Rate Blood Pressure 79/50 L Pulse Oximetry 98 99 Oxygen Delivery Method 09/06/24 02:32 09/06/24 02:34 09/06/24 02:34 Temperature Pulse Rate 58 L 72 Respiratory Rate Blood Pressure 118/59 L Pulse Oximetry 100 Oxygen Delivery Method 09/06/24 02:45 09/06/24 02:45 09/06/24 03:00 Temperature Pulse Rate 66 Respiratory Rate 18 Blood Pressure 122/58 L 111/52 L Pulse Oximetry 100 Oxygen Delivery Method 09/06/24 03:00 09/06/24 03:15 09/06/24 03:15 Temperature Pulse Rate 67 70 Respiratory Rate 20 19 Blood Pressure 98/57 L Pulse Oximetry 98 98 Oxygen Delivery Method 09/06/24 03:30 09/06/24 03:47 09/06/24 03:47 Temperature 90.0 F L Pulse Rate 68 74 Respiratory Rate 18 Blood Pressure 113/53 L Pulse Oximetry 98 98 Oxygen Delivery Method 09/06/24 04:00 09/06/24 04:01 09/06/24 04:01 Temperature 94.6 F L 95.0 F L Pulse Rate 74 75 Respiratory Rate 30 H 18 Blood Pressure 116/52 L Pulse Oximetry 99 98 Oxygen Delivery Method 09/06/24 04:16 09/06/24 04:16 09/06/24 04:30 Temperature 95.4 F L Pulse Rate 64 Respiratory Rate 27 H Blood Pressure 117/60 117/59 L Pulse Oximetry 99 Oxygen Delivery Method 09/06/24 04:30 09/06/24 04:46 09/06/24 04:46 Temperature 95.4 F L 95.4 F L Pulse Rate 67 70 Respiratory Rate 18 18 Blood Pressure 119/53 L Pulse Oximetry 96 97 Oxygen Delivery Method 09/06/24 05:00 09/06/24 05:00 09/06/24 05:30 Temperature 95.5 F L 95.9 F L Pulse Rate 93 H 76 Respiratory Rate 20 18 Blood Pressure 122/64 Pulse Oximetry 99 96 Oxygen Delivery Method Oxygen Delivery Method Room Air Const General: cooperative, comfortable and well developed Orientation: alert and oriented x3 HENMT Head: normal to inspection, normocephalic and atraumatic Face and sinus: normal facial exam Mouth: oral mucosae normal and moist mucous membranes Throat: posterior oropharynx normal Eyes General: appearance normal, both eyes and all related structures Pupils: PERRL EOM: EOM intact bilaterally Neck Neck: normal visual inspection and full ROM Chest Chest: normal inspection of the chest Resp Effort & Inspection: normal respiratory effort and able to speak in complete sentences Auscultation: clear to auscultation bilaterally Cardio Palpation: normal PMI Rate: regular rate Rhythm: regular rhythm Heart Sounds: S1 normal and S2 normal GI Inspection: normal to inspection Palpation: soft and no hepatosplenomegaly Auscultation: normal bowel sounds Skin General: no rashes or lesions noted Lesions: no lesions Rashes: no rashes Trauma: no lacerations or abrasions Neuro General: patient alert, patient awake, patient oriented x3 and no focal motor deficits Cranial Nerves: CN's II-XI intact bilaterally Cognition: normal cognition Speech: speech normal Gait: normal gait Motor: muscle tone normal throughout Sensory Exam: no sensory deficits noted Extrem General: full ROM and no calf tenderness Psych Appearance: grossly normal Mental Status: mental status grossly normal Speech and Movement: speech and movement normal Objective Labs 09/06/24 04:50 09/06/24 01:17 Labs: Laboratory Results - last 24 hr 09/06/24 09/06/24 09/06/24 01:17 03:44 04:16 WBC 19.2 H RBC 5.14 Hgb 15.3 Hct 47.1 H MCV 91.5 MCH 29.8 MCHC 32.6 RDW 13.3 Plt Count 408 H Neut % (Auto) 83.8 H Lymph % (Auto) 12.6 L [place] % (Auto) 2.6 L Eos % (Auto) 0.1 L Baso % (Auto) 0.9 Neut # (Auto) 90165 H Lymph # (Auto) 2400 [place] # (Auto) 500 Eos # (Auto) 0 Baso # (Auto) 200 H Sodium 136 L Potassium 4.3 Chloride 102 Carbon Dioxide 15 L BUN 31 H Creatinine 1.60 H Estimated GFR 31 L BUN/Creatinine Ratio 19.4 Glucose 204 H Lactate 7.4 H* Calcium 10.3 H Total Bilirubin 1.7 H AST 46 H ALT 26 Alkaline Phosphatase 108 Total Protein 7.4 Albumin 4.2 Globulin 3.2 Albumin/Globulin Ratio 1.3 Lipase 151 Urine Color Yellow Urine Appearance Clear Urine pH 5.0 Ur Specific [place] 1.010 Urine Protein 2+ H Urine Glucose (UA) Negative Urine Ketones Trace H Urine Occult Blood Negative Urine Nitrate Positive H Urine Bilirubin 1+ H Ur Bilirubin Confirm Negative Urine Urobilinogen 1.0 Ur Leukocyte Esterase Negative Urine RBC 0-1/hpf Urine WBC 0-1/hpf Ur Squamous Epith Cells 0-1 /hpf Urine Bacteria Few (2-10) H Ur Culture Indicated? Specimen cultured Vol Urine Centrifuged 10ml (spun) Stl C. cayetanensis PCR Not detected Stool Rotavirus (PCR) Not detected Stool Adenovirus (PCR) Not detected Stool Astrovirus (PCR) Not detected Stool Cryptosporidium PCR Not detected Stl E.coli Shiga Tox PCR Not detected St Sh/Enteroin Ecoli PCR Not detected Stl Enterotoxigenic E PCR Not detected Stool EPEC (PCR) Not detected Stl E. histolytica PCR Not detected Stool Giardia Lamblia PCR Not detected Stool Sapovirus (PCR) Not detected Stl P. shigelloides PCR Not detected St Y.enterocolitica PCR Detected Stool Vibrio (PCR) Not detected Stl Vibrio cholerae PCR Not detected Stl Enteroaggr Ecoli PCR Not detected Stl Norovirus GI/GII PCR Not detected Campylobacter (PCR) Not detected C. difficile Tox (PCR) Not detected Salmonella (PCR) Not detected 09/06/24 04:50 WBC 14.7 H RBC 4.30 Hgb 12.6 Hct 38.7 MCV 90.0 MCH 29.4 MCHC 32.6 RDW 13.3 Plt Count 344 Neut % (Auto) 86.6 H Lymph % (Auto) 5.5 L [place] % (Auto) 7.3 Eos % (Auto) 0.0 L Baso % (Auto) 0.6 Neut # (Auto) 24207 H Lymph # (Auto) 800 L [place] # (Auto) 1100 H Eos # (Auto) 0 Baso # (Auto) 100 Sodium Potassium Chloride Carbon Dioxide BUN Creatinine Estimated GFR BUN/Creatinine Ratio Glucose Lactate 4.7 H* Calcium Total Bilirubin AST ALT Alkaline Phosphatase Total Protein Albumin Globulin Albumin/Globulin Ratio Lipase Urine Color Urine Appearance Urine pH Ur Specific [place] Urine Protein Urine Glucose (UA) Urine Ketones Urine Occult Blood Urine Nitrate Urine Bilirubin Ur Bilirubin Confirm Urine Urobilinogen Ur Leukocyte Esterase Urine RBC Urine WBC Ur Squamous Epith Cells Urine Bacteria Ur Culture Indicated? Vol Urine Centrifuged Stl C. cayetanensis PCR Stool Rotavirus (PCR) Stool Adenovirus (PCR) Stool Astrovirus (PCR) Stool Cryptosporidium PCR Stl E.coli Shiga Tox PCR St Sh/Enteroin Ecoli PCR Stl Enterotoxigenic E PCR Stool EPEC (PCR) Stl E. histolytica PCR Stool Giardia Lamblia PCR Stool Sapovirus (PCR) Stl P. shigelloides PCR St Y.enterocolitica PCR Stool Vibrio (PCR) Stl Vibrio cholerae PCR Stl Enteroaggr Ecoli PCR Stl Norovirus GI/GII PCR Campylobacter (PCR) C. difficile Tox (PCR) Salmonella (PCR) Assessment & Plan Assessment & Plan narrative: Severe sepsis, most likely due to sigmoid colitis. -IVF and correct electrolytes -clear liquid diet and advanced as tolerated -Zosyn -FU blood cultures -no loperamide for now -FU with Surgical in AM - Hold benazepril and metoprolol for now due to low blood pressure -Repeat and monitor lactic acid Acute kidney injury. Presented with creatinine 1.6, baseline between 1?1.1. Most likely pre-renal. -continue with IV fluid hydration. -hold ACEI -monitor UOP. -daily BMP -Avoid any nephrotoxic agents, including NSAIDs Hypertension. Hydralazine as needed. Hold lisinopril for now. CAD. Restart aspirin Care provided by Telehealth service using synchronized audio-video technology for this visit. Prior to the discussion the clinician obtained the patient's consent for Telehealth service. Supporting E/M code and modifier 95 for Telemedicine service documented. All requirements are met and documented. Time-Based Coding :: [TOTAL MINUTES] spent with patient and on the chart (including review of chart, obtaining history, exam, reviewing outside data, placing orders, documenting exam and treatment plan, and counseling patient) on [DATE]. Quality VTE Deep Vein Thrombosis/Pulmonary Embolism Present on Admission: No MIPS - Admit I confirm the patient?s Advance Care Plan is present, Code status is documented, Surrogate decision maker is in patient?s record [If Yes, STOP here]: Yes MIPS - Meds 'Current medications' to include all prescriptions, [id number] products, herbals, cannabis/cannabidiol products, and vitamin/mineral/dietary (nutritional) supplements. I have utilized all available resources to obtain, update, or review the patient?s current medications. [If Yes, STOP here]: Yes
[2024-09-06 06:29] LABS: Reflexed Lactate in 2 Hours Y
[2024-09-06 06:42] LABS: BUN Creatinine Ratio 22.1 (6-22); Blood Urea Nitrogen 30 mg/dL (7-17); Carbon Dioxide 13 mmol/L (22-32); Chloride 109 mmol/L (98-107); Estimated Glomerular Filt Rate 37 mL/min (>60); Glucose 108 mg/dL (70-99); HEMOLYSIS < 15 (0-50); Magnesium 2.1 mg/dL (1.6-2.3); Potassium 3.3 mmol/L (3.4-5.1); Sodium 136 mmol/L (137-145)
[2024-09-06] MEDS: ONDANSETRON 4 MG/2 ML INJ IV ×2 (06:52→16:37)
[2024-09-06 07:04] LABS: Lactate 2HR (Lactic Acid Rflx) 3.4 mmol/L (0.7-2.1)
--- NOTE | 2024-09-06 07:20 | PC.NURSE ---
Pt arrived from ER via stretcher, c/o mild abd pain, nausea, zofran given with effect, pt incont of frequent loose watery stools, attends on, mild redness in shawn area, IV fluids started, pt shown how to use call lyman, meds and labs as ordered, care continued
[2024-09-06 08:48] LABS: MRSA (Nasal) PCR NOT DETECTED (Not Detect)
[2024-09-06] MEDS: POTASSIUM CHLORIDE 20 MEQ TAB 40 MEQ PO (10:04)
--- NOTE | 2024-09-06 13:38 | DI.RAD.S_ITS ---
PROCEDURE: XR CHEST FOR PICC 1V INDICATIONS: PICC PLACEMENT TECHNIQUE: One view of the chest was acquired. COMPARISON: [facility], , XR CHEST 2V, 10/05/2020, 17:16. FINDINGS: Surgical changes and devices: Right-sided PICC line tip is in SVC. Lungs and pleura: Lungs are clear. No pleural effusions or pneumothorax. Mediastinum: Tortuous thoracic aorta with aortic arch calcifications are seen. Heart size is enlarged. Bones and chest wall: No suspicious bony lesions. Overlying soft tissues appear unremarkable. IMPRESSION: Right-sided PICC line tip is in SVC. No focal infiltrate, pleural effusion or pneumothorax. Dictated by: Dell Irby M.D. on 09/06/2024 at 14:18 Approved by: Dell Irby M.D. on 09/06/2024 at 14:18
[2024-09-06] MEDS: NOREPINEPHRINE BITARTRATE/D5W 4 MG/250 ML PLAST..BAG 4.65 MG IV (13:53)
[2024-09-06] MEDS: OXYCODONE IR 5 MG TABLET PO (15:38)
--- NOTE | 2024-09-06 15:41 | CM.DANOTE ---
Patient is an 88 yo female who was admitted INPT Status on 09/06/24 for Sepsis and Severe Colitis. Pt has AARP MCR under [facility] and her PCP is Imelda Owusu. EMR was reviewed. Per MD, pt quite sick and admitted for sepsis, colitis, CALLI and hypotension. Getting IV-Abx and fluids and incontinent of large amount of liquid stool. SW met bedside with pt, Dtr inlaw and pt's sister and explained role and they confirm pt lives alone in [place] and is very active and independent at baseline and completes her own ADLs and drives. Pt does not use DME for ambulation and no hx of HH or SNF. Family confirms that pt has a lot of local support and assist if needed and Dtr Bing flying in today to be bedside and available for patient as well. Discharge needs unclear at this time and pt and family preference is to discharge home when medically stable. Plan: SW to follow for pt's progress to determine any discharge planning needs and plan of home with family support when stable. LARON Mireles Discharge Planning/Care Management CM Discharge Assessment Start: 09/06/24 03:56 Freq: Status: Active Protocol: Document 09/06/24 15:40 BF (Rec: 09/06/24 15:41 BF [id number]) Discharge Planning Assessment Assigned Field Marketing Director LARON Crews DPOA/Assigned Designee Name Arvind Duncan Contact Information [phone] Advance Directives? No Advance Directives on File No History Provided By Patient,Family Member,Medical Record Has Patient been admitted in last 30 No days? Prior Living Arrangements House Household Members none Type of transporation used prior to Drives own vehicle admit Independent with ADL's Yes Is patient alert and oriented? Yes Caregiver for Another No Patient/Family Preference Halfway Facility,Home with Home Health Comment Pending progress Barriers to Discharge No Discharge Plan Home with Home Health Transportation Arrangement Family can transport at d/c Additional Comment Pending progress Whiteboard Updated in Patient Room with Yes name and ext. # of Field Marketing Director Review Status In Process Please Provide Date Initial DC 09/06/24 Assessment Was Performed Next Review Type Continued Stay Review
--- NOTE | 2024-09-06 16:05 | PT-IP ANOTE ---
PT order received. PT reviewed chart and checked in on pt. Pt is known to this PT as she has currently been receiving OPPT with this therapist. Pt declines PT this date, stating she is having diarrhea, and would like to start next date. Con't PT efforts at a later time.
--- NOTE | 2024-09-06 16:09 | OT.IPNOTE ---
OT order received and EMR reviewed. Pt declines OT eval this date due to having diarrhea. She asked OT to return next date for eval.
--- NOTE | 2024-09-06 18:36 | PM.HP.1 ---
History of Present Illness History of Present Illness Date Patient Seen: 09/06/24 Chief complaint: LLQ pain Narrative: Chief complaint: Abdominal pain left lower quadrant with diarrhea secondary to Yersinia enterocolitis History of present illness: 88 year-old female with hypertension, hyperlipidemia, CAD presented to the ER with left lower quadrant abdominal pain, nausea, vomiting and loose stools in the last couple of days. The patient was prescribed oral amoxicillin day 7 for anterior cervical lymphadenopathy. Denies any hematemesis or melena. Denies any fever, shortness of breath or chest pain. In the ER she was found to have severe sepsis with sigmoid colitis and was started on Zosyn and fluid boluses. Laboratory was unremarkable for lactic acid of 7.4, creatinine 1.6, BUN 31, calcium of 10.3, AST 46, total bilirubin 1.7, lipase 151, stool positive for Yersinia enterocolitica. Past medical surgical and social history please see the bottom of the note Review of systems: No chest pains or palpitations No shortness a breath or cough No urinary symptoms No paresthesia paresis Physical exam: Alert and oriented pleasant HEENT unremarkable Heart rate and rhythm regular no murmurs Lungs clear Abdomen hyperactive bowel sounds extremities no edema Neurologic nonfocal Objective laboratory and imaging findings please see bottom of the page Assessment and plan: Severe sepsis, most likely due to sigmoid colitis. -IVF and correct electrolytes -clear liquid diet and advanced as tolerated -Zosyn -FU blood cultures -no loperamide for now -FU with Surgical in AM - Hold benazepril and metoprolol for now due to low blood pressure -Repeat and monitor lactic acid Acute kidney injury. Presented with creatinine 1.6, baseline between 1?1.1. Most likely pre-renal. -continue with IV fluid hydration. -hold ACEI -monitor UOP. -daily BMP -Avoid any nephrotoxic agents, including NSAIDs Hypertension. Hydralazine as needed. Hold lisinopril for now. CAD. Restart aspirin Time-Based Coding :: 55 minutes spent with patient and on the chart (including review of chart, obtaining history, exam, reviewing outside data, placing orders, documenting exam and treatment plan, and counseling patient). Quality VTE Deep Vein Thrombosis/Pulmonary Embolism Present on Admission: No MIPS - Admit I confirm the patient?s Advance Care Plan is present, Code status is documented, Surrogate decision maker is in patient?s record [If Yes, STOP here]: Yes [facility] - Meds 'Current medications' to include all prescriptions, [id number] products, herbals, cannabis/cannabidiol products, and vitamin/mineral/dietary (nutritional) supplements. I have utilized all available resources to obtain, update, or review the patient?s current medications. [facility] Social History household members: none Smoking Status: Former smoker alcohol intake: never Meds Home Medications and Allergies Home Medications Medication Instructions Recorded Confirmed Type benazepril 20 mg tablet 20 mg PO BID ##0 01/10/13 09/10/22 History aspirin 81 mg chewable tablet 81 mg PO QDAY ##0 01/15/13 09/10/22 History metoprolol tartrate 50 mg tablet 50 mg PO BID #0 tabs 01/15/13 09/10/22 History econazole nitrate 1 % topical cream 1 applic topical BID #85 grams 09/10/22 09/10/22 Rx Allergies Allergy/AdvReac Type Severity Reaction Status Date / Time tramadol [TRAMADOL] Allergy Intermediate Verified 09/06/24 16:37 atorvastatin [ATORVASTATIN] AdvReac Mild HEADACHES Verified 09/06/24 05:55 diphenhydramine AdvReac Mild HYPERACTIVE Verified 09/06/24 05:55 [DIPHENHYDRAMINE] Exam Vital Signs (past 8 hours): - 09/06/24 11:00 09/06/24 11:01 09/06/24 11:01 Temperature Pulse Rate 64 61 Respiratory Rate 34 H 29 H Blood Pressure 99/40 L Pulse Oximetry 92 96 Oxygen Delivery Method 09/06/24 11:30 09/06/24 11:31 09/06/24 11:31 Temperature Pulse Rate 60 59 L Respiratory Rate 28 H 25 H Blood Pressure 79/43 L Pulse Oximetry 97 97 Oxygen Delivery Method 09/06/24 11:34 09/06/24 11:34 09/06/24 12:00 Temperature 96.6 F L 96.6 F L Pulse Rate 60 56 L Respiratory Rate 27 H 23 Blood Pressure 81/43 L Pulse Oximetry 97 96 Oxygen Delivery Method 09/06/24 12:01 09/06/24 12:01 09/06/24 12:07 Temperature 96.6 F L 96.6 F L Pulse Rate 56 L 58 L Respiratory Rate 23 28 H Blood Pressure 75/39 L Pulse Oximetry 96 96 Oxygen Delivery Method 09/06/24 12:07 09/06/24 12:08 09/06/24 12:08 Temperature 96.6 F L Pulse Rate 58 L Respiratory Rate 25 H Blood Pressure 73/34 L 75/38 L Pulse Oximetry 96 Oxygen Delivery Method 09/06/24 12:10 09/06/24 12:10 09/06/24 12:30 Temperature 96.8 F L 96.6 F L Pulse Rate 61 63 Respiratory Rate 28 H 24 Blood Pressure 81/50 L Pulse Oximetry 96 96 Oxygen Delivery Method 09/06/24 12:30 09/06/24 12:57 09/06/24 12:57 Temperature 96.3 F L Pulse Rate 66 Respiratory Rate 27 H Blood Pressure 87/45 L 87/41 L Pulse Oximetry 96 Oxygen Delivery Method 09/06/24 13:00 09/06/24 13:00 09/06/24 13:30 Temperature 95.7 F L 96.6 F L Pulse Rate 66 63 Respiratory Rate 28 H 30 H Blood Pressure 89/52 L Pulse Oximetry 96 95 Oxygen Delivery Method 09/06/24 13:31 09/06/24 13:31 09/06/24 14:00 Temperature 96.6 F L 97.0 F L Pulse Rate 63 59 L Respiratory Rate 29 H 23 Blood Pressure 82/39 L Pulse Oximetry 95 93 Oxygen Delivery Method 09/06/24 14:01 09/06/24 14:01 09/06/24 14:03 Temperature 97.0 F L 97.0 F L Pulse Rate 59 L 59 L Respiratory Rate 29 H 26 H Blood Pressure 67/41 L Pulse Oximetry 92 92 Oxygen Delivery Method 09/06/24 14:03 09/06/24 14:13 09/06/24 14:13 Temperature 97.0 F L Pulse Rate 64 Respiratory Rate 31 H Blood Pressure 65/40 L 74/52 L Pulse Oximetry 92 Oxygen Delivery Method 09/06/24 14:15 09/06/24 14:15 09/06/24 14:18 Temperature 97.0 F L 97.0 F L Pulse Rate 60 57 L Respiratory Rate 32 H 26 H Blood Pressure 79/50 L Pulse Oximetry 95 97 Oxygen Delivery Method 09/06/24 14:18 09/06/24 14:20 09/06/24 14:20 Temperature 97.2 F L Pulse Rate 57 L Respiratory Rate 28 H Blood Pressure 75/44 L 73/37 L Pulse Oximetry 96 Oxygen Delivery Method 09/06/24 14:25 09/06/24 14:25 09/06/24 14:30 Temperature 97.2 F L 97.2 F L Pulse Rate 58 L 59 L Respiratory Rate 29 H 27 H Blood Pressure 66/33 L Pulse Oximetry 94 97 Oxygen Delivery Method 09/06/24 14:30 09/06/24 14:30 09/06/24 14:35 Temperature Pulse Rate 59 L 59 L Respiratory Rate Blood Pressure 71/37 L 71/37 L 74/40 L Pulse Oximetry Oxygen Delivery Method 09/06/24 14:35 09/06/24 14:35 09/06/24 14:40 Temperature 97.2 F L Pulse Rate 57 L 57 L Respiratory Rate 27 H Blood Pressure 74/40 L 84/40 L Pulse Oximetry 95 Oxygen Delivery Method 09/06/24 14:40 09/06/24 14:40 09/06/24 14:45 Temperature 97.2 F L Pulse Rate 57 L 58 L Respiratory Rate 24 Blood Pressure 84/40 L 88/43 L Pulse Oximetry 96 Oxygen Delivery Method 09/06/24 14:45 09/06/24 14:46 09/06/24 14:46 Temperature 97.3 F L 97.3 F L Pulse Rate 57 L 57 L Respiratory Rate 21 23 Blood Pressure 88/43 L Pulse Oximetry 93 93 Oxygen Delivery Method 09/06/24 14:50 09/06/24 14:50 09/06/24 14:50 Temperature 97.3 F L Pulse Rate 57 L 57 L Respiratory Rate 24 Blood Pressure 86/49 L 86/49 L Pulse Oximetry 96 Oxygen Delivery Method 09/06/24 14:55 09/06/24 14:55 09/06/24 15:00 Temperature 97.3 F L 83.7 F L Pulse Rate 61 62 Respiratory Rate 31 H 32 H Blood Pressure 98/47 L Pulse Oximetry 95 92 Oxygen Delivery Method 09/06/24 15:00 09/06/24 15:05 09/06/24 15:05 Temperature 83.7 F L Pulse Rate 62 Respiratory Rate 28 H Blood Pressure 99/49 L 94/52 L Pulse Oximetry 94 Oxygen Delivery Method 09/06/24 15:10 09/06/24 15:10 09/06/24 15:15 Temperature 84.4 F L 84.4 F L Pulse Rate 61 61 Respiratory Rate 28 H 29 H Blood Pressure 95/51 L Pulse Oximetry 94 94 Oxygen Delivery Method 09/06/24 15:15 09/06/24 15:20 09/06/24 15:21 Temperature 84.4 F L 84.4 F L Pulse Rate 61 62 Respiratory Rate 29 H 28 H Blood Pressure 102/48 L Pulse Oximetry 93 93 Oxygen Delivery Method 09/06/24 15:21 09/06/24 15:25 09/06/24 15:25 Temperature 84.4 F L Pulse Rate 63 Respiratory Rate 32 H Blood Pressure 98/67 98/47 L Pulse Oximetry 93 Oxygen Delivery Method 09/06/24 15:30 09/06/24 15:30 09/06/24 15:35 Temperature 84.4 F L 84.4 F L Pulse Rate 63 61 Respiratory Rate 28 H 28 H Blood Pressure 104/49 L Pulse Oximetry 95 94 Oxygen Delivery Method 09/06/24 15:35 09/06/24 15:40 09/06/24 15:40 Temperature 84.4 F L Pulse Rate 63 Respiratory Rate 32 H Blood Pressure 93/46 L 95/44 L Pulse Oximetry 92 Oxygen Delivery Method 09/06/24 15:45 09/06/24 15:45 09/06/24 15:50 Temperature 84.4 F L 84.4 F L Pulse Rate 64 61 Respiratory Rate 32 H 24 Blood Pressure 85/46 L Pulse Oximetry 93 93 Oxygen Delivery Method 09/06/24 15:50 09/06/24 15:55 09/06/24 15:55 Temperature 84.4 F L Pulse Rate 60 Respiratory Rate 25 H Blood Pressure 93/44 L 79/52 L Pulse Oximetry 94 Oxygen Delivery Method 09/06/24 16:00 09/06/24 16:00 09/06/24 16:00 Temperature Pulse Rate 59 L Respiratory Rate 25 H Blood Pressure 82/49 L Pulse Oximetry 94 Oxygen Delivery Method Room Air 09/06/24 16:05 09/06/24 16:05 09/06/24 16:10 Temperature Pulse Rate 62 63 Respiratory Rate 30 H 25 H Blood Pressure 91/53 L Pulse Oximetry 94 92 Oxygen Delivery Method 09/06/24 16:15 09/06/24 16:20 09/06/24 16:22 Temperature 84.2 F L 96.1 F L Pulse Rate 63 67 Respiratory Rate 28 H 34 H Blood Pressure 100/49 L Pulse Oximetry 93 92 Oxygen Delivery Method 09/06/24 16:22 09/06/24 16:23 09/06/24 16:25 Temperature 84.6 F L 96.0 F L 84.6 F L Pulse Rate 68 69 Respiratory Rate 33 H 26 H Blood Pressure 100/49 L Pulse Oximetry 93 92 Oxygen Delivery Method 09/06/24 16:30 09/06/24 16:31 09/06/24 16:31 Temperature 84.4 F L 84.4 F L Pulse Rate 69 72 Respiratory Rate 33 H 38 H Blood Pressure 98/50 L Pulse Oximetry 92 92 Oxygen Delivery Method 09/06/24 16:35 09/06/24 16:40 09/06/24 16:45 Temperature 98.6 F 98.6 F 98.6 F Pulse Rate 79 74 70 Respiratory Rate 42 H 37 H 35 H Blood Pressure Pulse Oximetry 90 L 93 91 Oxygen Delivery Method 09/06/24 16:50 09/06/24 16:55 09/06/24 17:00 Temperature 98.4 F 98.4 F Pulse Rate 72 68 Respiratory Rate 36 H 36 H Blood Pressure 103/54 L Pulse Oximetry 92 93 Oxygen Delivery Method 09/06/24 17:00 09/06/24 17:05 09/06/24 17:10 Temperature 98.4 F 97.3 F L 97.3 F L Pulse Rate 69 69 66 Respiratory Rate 38 H 30 H 30 H Blood Pressure Pulse Oximetry 94 93 93 Oxygen Delivery Method 09/06/24 17:15 09/06/24 17:20 09/06/24 17:25 Temperature 97.3 F L 97.3 F L 97.2 F L Pulse Rate 66 66 64 Respiratory Rate 27 H 33 H 34 H Blood Pressure Pulse Oximetry 92 92 92 Oxygen Delivery Method 09/06/24 17:30 09/06/24 17:30 09/06/24 17:35 Temperature 98.8 F 98.8 F Pulse Rate 68 67 Respiratory Rate 35 H 32 H Blood Pressure 100/50 L Pulse Oximetry 92 88 L Oxygen Delivery Method 09/06/24 17:40 09/06/24 17:45 09/06/24 17:50 Temperature 99.0 F 99.0 F 99.0 F Pulse Rate 67 66 66 Respiratory Rate 28 H 25 H 22 Blood Pressure Pulse Oximetry 92 93 93 Oxygen Delivery Method 09/06/24 17:55 09/06/24 18:00 09/06/24 18:01 Temperature 99.0 F 99.0 F 99.0 F Pulse Rate 65 63 66 Respiratory Rate 23 27 H 24 Blood Pressure Pulse Oximetry 93 93 93 Oxygen Delivery Method 09/06/24 18:01 09/06/24 18:05 09/06/24 18:10 Temperature 99.1 F 99.1 F Pulse Rate 66 66 Respiratory Rate 24 25 H Blood Pressure 92/51 L Pulse Oximetry 93 92 Oxygen Delivery Method Oxygen Delivery Method Room Air Objective Labs 09/06/24 04:50 09/06/24 04:50 Labs: Laboratory Results - last 24 hr 09/06/24 09/06/24 09/06/24 01:17 03:44 04:16 WBC 19.2 H RBC 5.14 Hgb 15.3 Hct 47.1 H MCV 91.5 MCH 29.8 MCHC 32.6 RDW 13.3 Plt Count 408 H Neut % (Auto) 83.8 H Lymph % (Auto) 12.6 L [place] % (Auto) 2.6 L Eos % (Auto) 0.1 L Baso % (Auto) 0.9 Neut # (Auto) 41138 H Lymph # (Auto) 2400 [place] # (Auto) 500 Eos # (Auto) 0 Baso # (Auto) 200 H Sodium 136 L Potassium 4.3 Chloride 102 Carbon Dioxide 15 L BUN 31 H Creatinine 1.60 H Estimated GFR 31 L BUN/Creatinine Ratio 19.4 Glucose 204 H Lactate 7.4 H* Calcium 10.3 H Magnesium Total Bilirubin 1.7 H AST 46 H ALT 26 Alkaline Phosphatase 108 Total Protein 7.4 Albumin 4.2 Globulin 3.2 Albumin/Globulin Ratio 1.3 Lipase 151 Urine Color Yellow Urine Appearance Clear Urine pH 5.0 Ur Specific Cyrus 1.010 Urine Protein 2+ H Urine Glucose (UA) Negative Urine Ketones Trace H Urine Occult Blood Negative Urine Nitrate Positive H Urine Bilirubin 1+ H Ur Bilirubin Confirm Negative Urine Urobilinogen 1.0 Ur Leukocyte Esterase Negative Urine RBC 0-1/hpf Urine WBC 0-1/hpf Ur Squamous Epith Cells 0-1 /hpf Urine Bacteria Few (2-10) H Ur Culture Indicated? Specimen cultured Vol Urine Centrifuged 10ml (spun) Nasal Screen MRSA (PCR) Stl C. cayetanensis PCR Not detected Stool Rotavirus (PCR) Not detected Stool Adenovirus (PCR) Not detected Stool Astrovirus (PCR) Not detected Stool Cryptosporidium PCR Not detected Stl E.coli Shiga Tox PCR Not detected St Sh/Enteroin Ecoli PCR Not detected Stl Enterotoxigenic E PCR Not detected Stool EPEC (PCR) Not detected Stl E. histolytica PCR Not detected Stool Giardia Lamblia PCR Not detected Stool Sapovirus (PCR) Not detected Stl P. shigelloides PCR Not detected St Y.enterocolitica PCR Detected Stool Vibrio (PCR) Not detected Stl Vibrio cholerae PCR Not detected Stl Enteroaggr Ecoli PCR Not detected Stl Norovirus GI/GII PCR Not detected Campylobacter (PCR) Not detected C. difficile Tox (PCR) Not detected Salmonella (PCR) Not detected 09/06/24 09/06/24 09/06/24 04:50 06:30 06:44 WBC 14.7 H RBC 4.30 Hgb 12.6 Hct 38.7 MCV 90.0 MCH 29.4 MCHC 32.6 RDW 13.3 Plt Count 344 Neut % (Auto) 86.6 H Lymph % (Auto) 5.5 L [place] % (Auto) 7.3 Eos % (Auto) 0.0 L Baso % (Auto) 0.6 Neut # (Auto) 01574 H Lymph # (Auto) 800 L [place] # (Auto) 1100 H Eos # (Auto) 0 Baso # (Auto) 100 Sodium 136 L Potassium 3.3 L Chloride 109 H Carbon Dioxide 13 L BUN 30 H Creatinine 1.36 H Estimated GFR 37 L BUN/Creatinine Ratio 22.1 H Glucose 108 H Lactate 4.7 H* 3.4 H Calcium 8.0 L Magnesium 2.1 Total Bilirubin AST ALT Alkaline Phosphatase Total Protein Albumin Globulin Albumin/Globulin Ratio Lipase Urine Color Urine Appearance Urine pH Ur Specific Cyrus Urine Protein Urine Glucose (UA) Urine Ketones Urine Occult Blood Urine Nitrate Urine Bilirubin Ur Bilirubin Confirm Urine Urobilinogen Ur Leukocyte Esterase Urine RBC Urine WBC Ur Squamous Epith Cells Urine Bacteria Ur Culture Indicated? Vol Urine Centrifuged Nasal Screen MRSA (PCR) Not detected Stl C. cayetanensis PCR Stool Rotavirus (PCR) Stool Adenovirus (PCR) Stool Astrovirus (PCR) Stool Cryptosporidium PCR Stl E.coli Shiga Tox PCR St Sh/Enteroin Ecoli PCR Stl Enterotoxigenic E PCR Stool EPEC (PCR) Stl E. histolytica PCR Stool Giardia Lamblia PCR Stool Sapovirus (PCR) Stl P. shigelloides PCR St Y.enterocolitica PCR Stool Vibrio (PCR) Stl Vibrio cholerae PCR Stl Enteroaggr Ecoli PCR Stl Norovirus GI/GII PCR Campylobacter (PCR) C. difficile Tox (PCR) Salmonella (PCR) Assessment & Plan Time-Based Coding :: [TOTAL MINUTES] spent with patient and on the chart (including review of chart, obtaining history, exam, reviewing outside data, placing orders, documenting exam and treatment plan, and counseling patient) on [DATE]. Quality VTE Deep Vein Thrombosis/Pulmonary Embolism Present on Admission: No
[2024-09-06] MEDS: NOREPINEPHRINE BITARTRATE/D5W 4 MG/250 ML PLAST..BAG 46.5 MG IV (19:49)
[2024-09-06] MEDS: MORPHINE 4 MG/ML INJ 3 MG IV (20:06)
[2024-09-06] MEDS: METOCLOPRAMIDE 10 MG/2 ML INJ IV (20:59)
[2024-09-07] VITALS (107 sets, daily range): BP systolic 72–162; BP diastolic 39–87; PULSE 76–175; RESP 18–39; TEMP 36.6–37.5; O2SAT 89–97
[2024-09-07] MEDS: NOREPINEPHRINE BITARTRATE/D5W 4 MG/250 ML PLAST..BAG 46.5 MG IV (01:21)
[2024-09-07] MEDS: MORPHINE 4 MG/ML INJ 3 MG IV (05:30)
[2024-09-07] MEDS: SODIUM CHLORIDE 0.9% 1,000 ML 125 ML IV ×2 (07:12→14:15)
[2024-09-07 07:29] LABS: Add Manual Diff / Slide Review YES; Hemoglobin 11.9 g/dL (12.0-16.0); Mean Corpuscular HGB Conc 32.2 % (30-36); Mean Corpuscular Hemoglobin 29.1 PG (26-34); Mean Corpuscular Volume 90.4 fL (80-100); Platelet Count 347 X10^3/uL (150-400); Red Blood Cell Count 4.09 X10^6/uL (4.0-5.2); Red Cell Distribution Width 13.9 % (11.6-14.8); White Blood Cell Count 23.5 X10^3/uL (4.5-11.0)
[2024-09-07 07:40] LABS: BUN Creatinine Ratio 21.2 (6-22); Blood Urea Nitrogen 28 mg/dL (7-17); Calcium 6.7 mg/dL (8.4-10.2); Carbon Dioxide 11 mmol/L (22-32); Chloride 109 mmol/L (98-107); Estimated Glomerular Filt Rate 39 mL/min (>60); Glucose 139 mg/dL (70-99); HEMOLYSIS 36 (0-50); Magnesium 1.7 mg/dL (1.6-2.3); Potassium 4.2 mmol/L (3.4-5.1); Sodium 130 mmol/L (137-145)
[2024-09-07 07:41] LABS: Burr Cells 1+; Neutrophils Absolute Manual 19975 /uL (3000-5900); Total Cells Counted 100
[2024-09-07] MEDS: NOREPINEPHRINE BITARTRATE/D5W 4 MG/250 ML PLAST..BAG 34.875 MG IV (08:04)
[2024-09-07] MEDS: ASPIRIN 81 MG CHEW TAB PO (08:51)
[2024-09-07] MEDS: METOCLOPRAMIDE 10 MG/2 ML INJ IV (08:51)
--- NOTE | 2024-09-07 09:01 | DI.RAD.S_ITS ---
PROCEDURE: XR CHEST 1V INDICATIONS: Increased oxygen need TECHNIQUE: One view of the chest was acquired. COMPARISON: [facility], CR, XR CHEST FOR PICC 1V, 09/06/2024, 13:34. FINDINGS: [id number] left lower hemithorax consolidation partially obscures the left hemidiaphragm and left heart border commonly represents a combination of pleural effusion, atelectasis, pneumonia or other process. Moderate bilateral perihilar and lower lobe peribronchial thickening and patchy opacities left greater than right; bronchopneumonia, pneumonia, viral infection, or other process should be considered. Mildly enlarged cardiopericardial silhouette increased. Moderate calcifications of the aortic arch unchanged. No pneumothorax. IMPRESSION: New consolidation left lower hemithorax suspicious for pleural effusion, pneumonia or other process as discussed above. New peribronchial thickening and patchy opacities as discussed above . Follow-up is needed. If symptoms persist or worsen, CT chest could be performed. Dictated by: Mega Toure M.D. on 09/07/2024 at 10:18 Approved by: Mega Toure M.D. on 09/07/2024 at 10:22
[2024-09-07] MEDS: BENZOCAINE/MENTHOL 1 LOZ PKT 1 EACH PO (09:08)
[2024-09-07 09:36] LABS: Alanine Aminotransferase 13 IU/L (<35); Albumin 2.1 g/dL (3.5-5.0); Albumin Globulin Ratio 0.9 (1.0-2.8); Alkaline Phosphatase 78 U/L (38-126); Aspartate Aminotransferase 29 IU/L (14-36); BUN Creatinine Ratio 20.3 (6-22); Bilirubin Total 0.4 mg/dL (0.2-1.3); Blood Urea Nitrogen 28 mg/dL (7-17); Carbon Dioxide 11 mmol/L (22-32); Chloride 105 mmol/L (98-107); Estimated Glomerular Filt Rate 37 mL/min (>60); Globulin 2.4 g/dL (1.7-4.1); Glucose 244 mg/dL (70-99); HEMOLYSIS < 15 (0-50); Sodium 126 mmol/L (137-145); Total Protein 4.5 g/dL (6.3-8.2)
[2024-09-07 09:51] LABS: Calcium 6.4 mg/dL (8.4-10.2)
[2024-09-07] MEDS: cefTRIAXone 2,000 MG in SODIUM CHLORIDE 0.9% 100 ML 200 MG IV (10:52)
--- NOTE | 2024-09-07 12:05 | P.PN_ITS ---
Subjective Subjective Date Patient Seen: 09/07/24 Interval history: Chief complaint: Abdominal pain left lower quadrant with diarrhea secondary to Yersinia enterocolitis History of present illness: 88 year-old female with hypertension, hyperlipidemia, CAD presented to the ER with left lower quadrant abdominal pain, nausea, vomiting and loose stools in the last couple of days. The patient was prescribed oral amoxicillin day 7 for anterior cervical lymphadenopathy. Denies any hematemesis or melena. Denies any fever, shortness of breath or chest pain. In the ER she was found to have severe sepsis with sigmoid colitis and was started on Zosyn and fluid boluses. Laboratory was unremarkable for lactic acid of 7.4, creatinine 1.6, BUN 31, calcium of 10.3, AST 46, total bilirubin 1.7, lipase 151, stool positive for Yersinia enterocolitica. Hospital course: 09/07: Overnight patient became more short of breath hypoxic requiring oxygen White count escalated to 23,000 sodium dropped to 126 CT of the chest abdomen and pelvis ordered for possible change or source of infection or change in the sigmoid colitis from yesterday given her escalation of sepsis Change to Zosyn and gentamicin Review of systems: Patient reporting hallucinosis Increased shortness of breath Physical exam: Alert and oriented pleasant ill-appearing HEENT unremarkable Heart rate and rhythm regular no murmurs Lungs clear diffuse rales Abdomen hyperactive bowel sounds extremities no edema Neurologic nonfocal Objective laboratory and imaging findings please see bottom of the page Assessment and plan: Severe sepsis, most likely due to sigmoid colitis. -IVF and correct electrolytes -norepinephrine pressor -clear liquid diet and advanced as tolerated -Zosyn and gentamicin -FU blood cultures -no loperamide for now -FU with Surgical in AM - Hold benazepril and metoprolol for now due to low blood pressure -Repeat and monitor lactic acid Acute kidney injury. Presented with creatinine 1.6, baseline between 1?1.1. Most likely pre-renal. -continue with IV fluid hydration. -hold ACEI -monitor UOP. -daily BMP -Avoid any nephrotoxic agents, Hypertension. Hydralazine as needed. Hold lisinopril for now. CAD. Restart aspirin Time-Based Coding :: 55 minutes spent with patient and on the chart (including review of chart, obtaining history, exam, reviewing outside data, placing orders, documenting exam and treatment plan, and counseling patient). Exam Vital Signs (past 8 hours): - 09/07/24 04:30 09/07/24 04:30 09/07/24 05:00 Temperature 98.2 F 98.1 F Pulse Rate 93 H 98 H Respiratory Rate 25 H 31 H Blood Pressure 125/59 L Pulse Oximetry 94 92 Oxygen Delivery Method Oxygen Flow Rate 09/07/24 05:00 09/07/24 05:30 09/07/24 05:30 Temperature 98.1 F Pulse Rate 103 H Respiratory Rate 30 H Blood Pressure 128/58 L 112/54 L Pulse Oximetry 93 Oxygen Delivery Method Oxygen Flow Rate 09/07/24 06:00 09/07/24 06:00 09/07/24 06:30 Temperature 98.2 F 98.2 F Pulse Rate 101 H 107 H Respiratory Rate 27 H 32 H Blood Pressure 103/53 L Pulse Oximetry 92 89 L Oxygen Delivery Method Oxygen Flow Rate 09/07/24 06:30 09/07/24 07:00 09/07/24 07:00 Temperature 98.6 F Pulse Rate 114 H Respiratory Rate 31 H Blood Pressure 103/75 120/56 L Pulse Oximetry 91 Oxygen Delivery Method Oxygen Flow Rate 09/07/24 07:30 09/07/24 07:30 09/07/24 08:00 Temperature 99.1 F 99.3 F Pulse Rate 111 H 109 H Respiratory Rate 30 H 25 H Blood Pressure 123/54 L Pulse Oximetry 91 91 Oxygen Delivery Method Oxygen Flow Rate 09/07/24 08:01 09/07/24 08:01 09/07/24 08:19 Temperature 99.3 F 99.3 F Pulse Rate 109 H 119 H Respiratory Rate 24 39 H Blood Pressure 113/50 L Pulse Oximetry 90 L 94 Oxygen Delivery Method Oxygen Flow Rate 2 2 09/07/24 08:19 09/07/24 08:30 09/07/24 08:31 Temperature 99.5 F Pulse Rate 112 H Respiratory Rate 34 H Blood Pressure 105/59 L 100/65 Pulse Oximetry 93 Oxygen Delivery Method Oxygen Flow Rate 2 09/07/24 08:31 09/07/24 08:38 09/07/24 08:38 Temperature 99.5 F 99.5 F Pulse Rate 110 H 113 H Respiratory Rate 33 H 35 H Blood Pressure 100/54 L Pulse Oximetry 93 92 Oxygen Delivery Method Oxygen Flow Rate 2 09/07/24 09:00 09/07/24 09:00 09/07/24 09:00 Temperature 99.5 F Pulse Rate 108 H Respiratory Rate 29 H Blood Pressure 88/50 L Pulse Oximetry 92 Oxygen Delivery Method Nasal Cannula Oxygen Flow Rate 2 09/07/24 09:30 09/07/24 09:31 09/07/24 09:31 Temperature 99.0 F 99.0 F Pulse Rate 102 H 102 H Respiratory Rate 27 H 27 H Blood Pressure 73/49 L Pulse Oximetry 92 92 Oxygen Delivery Method Oxygen Flow Rate 2 2 09/07/24 09:45 09/07/24 09:45 09/07/24 09:50 Temperature 99.0 F 99.0 F Pulse Rate 102 H 102 H Respiratory Rate 31 H 30 H Blood Pressure 72/40 L Pulse Oximetry 93 93 Oxygen Delivery Method Oxygen Flow Rate 2 2 09/07/24 09:50 09/07/24 10:00 09/07/24 10:00 Temperature 99.0 F Pulse Rate 101 H Respiratory Rate 28 H Blood Pressure 84/46 L 82/47 L Pulse Oximetry 93 Oxygen Delivery Method Oxygen Flow Rate 2 09/07/24 10:10 09/07/24 10:10 09/07/24 10:21 Temperature 98.8 F 98.8 F Pulse Rate 101 H 102 H Respiratory Rate 27 H 25 H Blood Pressure 83/45 L Pulse Oximetry 94 94 Oxygen Delivery Method Oxygen Flow Rate 2 2 09/07/24 10:21 09/07/24 10:30 09/07/24 10:30 Temperature 98.6 F Pulse Rate 104 H Respiratory Rate 25 H Blood Pressure 103/60 98/56 L Pulse Oximetry 93 Oxygen Delivery Method Oxygen Flow Rate 2 09/07/24 10:40 09/07/24 10:40 09/07/24 10:50 Temperature 98.6 F 98.6 F Pulse Rate 101 H 106 H Respiratory Rate 22 30 H Blood Pressure 98/56 L Pulse Oximetry 94 93 Oxygen Delivery Method Oxygen Flow Rate 09/07/24 10:50 09/07/24 11:00 09/07/24 11:01 Temperature 98.8 F Pulse Rate 107 H Respiratory Rate 31 H Blood Pressure 88/50 L 110/55 L Pulse Oximetry 92 Oxygen Delivery Method Oxygen Flow Rate 09/07/24 11:01 09/07/24 11:10 09/07/24 11:10 Temperature 98.6 F 98.6 F Pulse Rate 108 H 105 H Respiratory Rate 27 H 24 Blood Pressure 109/54 L Pulse Oximetry 90 L 91 Oxygen Delivery Method Oxygen Flow Rate 09/07/24 11:20 09/07/24 11:20 09/07/24 11:30 Temperature 98.6 F Pulse Rate 107 H Respiratory Rate 27 H Blood Pressure 98/50 L 92/50 L Pulse Oximetry 93 Oxygen Delivery Method Oxygen Flow Rate 09/07/24 11:30 Temperature 98.8 F Pulse Rate 109 H Respiratory Rate 34 H Blood Pressure Pulse Oximetry 93 Oxygen Delivery Method Oxygen Flow Rate Oxygen Delivery Method Nasal Cannula Oxygen Flow Rate 2 Objective Labs 09/07/24 05:30 09/07/24 09:00 Labs: Laboratory Results - last 24 hr 09/07/24 09/07/24 05:30 09:00 WBC 23.5 H D RBC 4.09 Hgb 11.9 L Hct 37.0 MCV 90.4 MCH 29.1 MCHC 32.2 RDW 13.9 Plt Count 347 Neut % (Auto) Not Reportable Lymph % (Auto) Not Reportable [place] % (Auto) Not Reportable Eos % (Auto) Not Reportable Baso % (Auto) Not Reportable Lymph # (Auto) Not Reportable [place] # (Auto) Not Reportable Baso # (Auto) Not Reportable Total Counted 100 Seg Neutrophils % 59.0 Band Neutrophils % 26.0 H Lymphocytes % (Manual) 6.0 L Atypical Lymphs % 3.0 H Monocytes % (Manual) 6.0 Neutrophils # (Manual) 09151 H RBC Morphology Not Reportable [place] Cells 1+ H Sodium 130 L 126 L Potassium 4.2 4.0 Chloride 109 H 105 Carbon Dioxide 11 L 11 L BUN 28 H 28 H Creatinine 1.32 H 1.38 H Estimated GFR 39 L 37 L BUN/Creatinine Ratio 21.2 20.3 Glucose 139 H 244 H D Calcium 6.7 L 6.4 L* Magnesium 1.7 Total Bilirubin 0.4 AST 29 ALT 13 Alkaline Phosphatase 78 Total Protein 4.5 L Albumin 2.1 L Globulin 2.4 Albumin/Globulin Ratio 0.9 L PFSH Social History household members: none Smoking Status: Former smoker alcohol intake: never Assessment & Plan Time-Based Coding :: [TOTAL MINUTES] spent with patient and on the chart (including review of chart, obtaining history, exam, reviewing outside data, placing orders, documenting exam and treatment plan, and counseling patient) on [DATE]. Quality VTE Deep Vein Thrombosis/Pulmonary Embolism Present on Admission: No
--- NOTE | 2024-09-07 12:15 | PT-IP ANOTE ---
PT eval received and EMR reviewed. nurse informed PT that pt is not doing well today and to have PT on hold. will f/u tomorrow.
[2024-09-07] MEDS: NOREPINEPHRINE BITARTRATE/D5W 4 MG/250 ML PLAST..BAG 51.15 MG IV (12:25)
--- NOTE | 2024-09-07 12:36 | DI.CT.S_ITS ---
PROCEDURE: CT CHEST ABD PEL WO CON INDICATIONS: Sepsis enteritis TECHNIQUE: After the administration of oral contrast, 5 mm thick sections acquired from the lung apices to the symphysis pubis. 5 mm thick coronal and sagittal reformats acquired, with additional 7 mm coronal MIP reformats through the lungs. For radiation dose reduction, the following was used: automated exposure control, adjustment of mA and/or kV according to patient size. COMPARISON: [facility], CT, CT ANGIO CHEST PE PROTOCOL, 10/05/2020, 20:07. [facility], CT, CT ABDOMEN PELVIS W CON, 09/06/2024, 2:20. FINDINGS: Image quality: Diagnostic. CHEST: Lower Neck: No enlarged lymph nodes. Thyroid: Exophytic nodule at the posterior right thyroid is partially included. Axillae: No enlarged lymph nodes. Chest Wall: Right PICC is seen terminating at the lower superior vena cava. Stable oval mass in the right breast measuring approximately 1.2 cm. Bones: Unremarkable. Lungs and Pleura: Small bilateral pleural effusions are new with adjacent bibasilar atelectasis. Moderate centrilobular emphysema. No pneumothorax or pleural effusions. No consolidation or suspicious nodules. Heart: Heart size is normal. No pericardial effusion. Thoracic Vessels: The aorta and pulmonary arteries demonstrate normal size. Mediastinum and Violet: No enlarged lymph nodes. Esophagus: No wall thickening. No hiatal hernia. ABDOMEN: Liver: No solid mass. Gallbladder: Calcified gallstone is present. Gallbladder is mildly distended. Biliary ducts: No biliary dilation. Pancreas: No ductal dilation. Spleen: Size is within normal limits. Adrenal Glands: Stable left adrenal nodule. No right adrenal nodule. Kidneys and Ureters: No hydronephrosis. No solid mass. No complex renal cystic lesion which requires follow up. Some contrast material is seen in the renal collecting system. Stomach and Bowel: Small hiatal hernia. Diffuse bowel wall thickening again seen in the colon, most notably at the sigmoid colon. Previously seen liquid stool material in the colon has predominantly resolved. Small bowel loops are nondistended. Peritoneum: Small amount of free fluid in the abdomen and pelvis. No pneumoperitoneum. Ventral Wall: No hernia. Mild soft tissue anasarca. Abdominal Nodes: No retroperitoneal or mesenteric adenopathy by size criteria. Vessels: Aorta and inferior vena cava are normal in size. Aortic atherosclerotic calcifications. PELVIS: Pelvic Organs: Unremarkable. Bladder: Contrast material is seen in the bladder related to prior contrast load. Bladder is decompressed by Adam catheter and contains air. Pelvic Nodes: No enlarged lymph nodes. Miscellaneous: No inguinal hernias are seen. Bones: No aggressive osseous abnormality. Multilevel degenerative changes in the included spine. IMPRESSION: 1. Long segment bowel wall thickening again seen in the colon suspicious for colitis. Colonic diverticulosis. 2. Small volume of ascites in the abdomen and pelvis has increased, likely related to patient volume status. No pneumoperitoneum. No definite loculated fluid or abscess. 3. New bilateral small pleural effusions and bibasilar atelectasis. No significant consolidation. Moderate centrilobular emphysema. 4. Cholelithiasis. 5. Stable small right breast mass. Recommend follow-up outpatient diagnostic mammogram and ultrasound. Approved by: Bernardo Chaparro M.D. on 09/07/2024 at 13:27
[2024-09-07] MEDS: GENTAMICIN 80 MG in SODIUM CHLORIDE 0.9% 100 ML 102 MG IV (12:53)
--- NOTE | 2024-09-07 13:13 | OT.IPNOTE ---
Per nursing pt not feeling well and best to hold from OT eval today. To check on pt tomorrow.
[2024-09-07 13:51] LABS: Lactate (Lactic Acid) 1.6 mmol/L (0.7-2.1)
[2024-09-07] MEDS: SODIUM CHLORIDE 0.9% 1,000 ML 1000 ML IV (14:00)
[2024-09-07] MEDS: PIPERACILLIN/TAZO 3.375 GM in SODIUM CHLORIDE 0.9% 100 ML IV (14:01)
--- NOTE | 2024-09-07 14:11 | PM.CN.IH.1 ---
History of Present Illness Consult details Date Patient Seen: 09/07/24 Chief complaint: LLQ pain Reason for consult: Sepsis Narrative: 88-year-old female who received a course of oral Augmentin a week ago for lymphadenopathy. She subsequently developed left lower quadrant abdominal pain and fever with loosening of the stools. Her pain worsened and she presented to the ED. she had a leukocytosis of [address] findings consistent with colitis of the sigmoid and rectosigmoid. Earlier today her fluid requirements increased and she was placed on norepinephrine. She had grown Yersinia enterocolitica. Repeat CT today demonstrated findings consistent with increased ascitic fluid some, some fluid in the pelvis, no free air or evidence of abscess. I am consulted to render a surgical opinion regarding potential intervention. Meds Home Medications and Allergies Home Medications ?Medication ?Instructions ?Recorded ?Confirmed ?Type benazepril 20 mg tablet 20 mg PO BID ##0 01/10/13 09/10/22 History aspirin 81 mg chewable tablet 81 mg PO QDAY ##0 01/15/13 09/10/22 History metoprolol tartrate 50 mg tablet 50 mg PO BID #0 tabs 01/15/13 09/10/22 History econazole nitrate 1 % topical cream 1 applic topical BID #85 grams 09/10/22 09/10/22 Rx Allergies Allergy/AdvReac Type Severity Reaction Status Date / Time tramadol (TRAMADOL) Allergy Intermediate Verified 09/06/24 16:37 atorvastatin (ATORVASTATIN) AdvReac Mild HEADACHES Verified 09/06/24 05:55 diphenhydramine AdvReac Mild HYPERACTIVE Verified 09/06/24 05:55 (DIPHENHYDRAMINE) Review of Systems Review of Systems Narrative: Comprehensive review of systems negative to direct questioning with the exception of the previously mentioned chronic conditions. Exam Vital Signs (past 8 hours): - 09/07/24 06:30 09/07/24 06:30 09/07/24 07:00 Temperature 98.2 F 98.6 F Pulse Rate 107 H 114 H Respiratory Rate 32 H 31 H Blood Pressure 103/75 Pulse Oximetry 89 L 91 Oxygen Delivery Method Oxygen Flow Rate 09/07/24 07:00 09/07/24 07:30 09/07/24 07:30 Temperature 99.1 F Pulse Rate 111 H Respiratory Rate 30 H Blood Pressure 120/56 L 123/54 L Pulse Oximetry 91 Oxygen Delivery Method Oxygen Flow Rate 09/07/24 08:00 09/07/24 08:01 09/07/24 08:01 Temperature 99.3 F 99.3 F Pulse Rate 109 H 109 H Respiratory Rate 25 H 24 Blood Pressure 113/50 L Pulse Oximetry 91 90 L Oxygen Delivery Method Oxygen Flow Rate 2 09/07/24 08:19 09/07/24 08:19 09/07/24 08:30 Temperature 99.3 F 99.5 F Pulse Rate 119 H 112 H Respiratory Rate 39 H 34 H Blood Pressure 105/59 L Pulse Oximetry 94 93 Oxygen Delivery Method Oxygen Flow Rate 2 2 09/07/24 08:31 09/07/24 08:31 09/07/24 08:38 Temperature 99.5 F 99.5 F Pulse Rate 110 H 113 H Respiratory Rate 33 H 35 H Blood Pressure 100/65 Pulse Oximetry 93 92 Oxygen Delivery Method Oxygen Flow Rate 2 09/07/24 08:38 09/07/24 09:00 09/07/24 09:00 Temperature 99.5 F Pulse Rate 108 H Respiratory Rate 29 H Blood Pressure 100/54 L Pulse Oximetry 92 Oxygen Delivery Method Nasal Cannula Oxygen Flow Rate 2 09/07/24 09:00 09/07/24 09:30 09/07/24 09:31 Temperature 99.0 F 99.0 F Pulse Rate 102 H 102 H Respiratory Rate 27 H 27 H Blood Pressure 88/50 L Pulse Oximetry 92 92 Oxygen Delivery Method Oxygen Flow Rate 2 2 09/07/24 09:31 09/07/24 09:45 09/07/24 09:45 Temperature 99.0 F Pulse Rate 102 H Respiratory Rate 31 H Blood Pressure 73/49 L 72/40 L Pulse Oximetry 93 Oxygen Delivery Method Oxygen Flow Rate 2 09/07/24 09:50 09/07/24 09:50 09/07/24 10:00 Temperature 99.0 F Pulse Rate 102 H Respiratory Rate 30 H Blood Pressure 84/46 L 82/47 L Pulse Oximetry 93 Oxygen Delivery Method Oxygen Flow Rate 2 09/07/24 10:00 09/07/24 10:10 09/07/24 10:10 Temperature 99.0 F 98.8 F Pulse Rate 101 H 101 H Respiratory Rate 28 H 27 H Blood Pressure 83/45 L Pulse Oximetry 93 94 Oxygen Delivery Method Oxygen Flow Rate 2 2 09/07/24 10:21 09/07/24 10:21 09/07/24 10:30 Temperature 98.8 F 98.6 F Pulse Rate 102 H 104 H Respiratory Rate 25 H 25 H Blood Pressure 103/60 Pulse Oximetry 94 93 Oxygen Delivery Method Oxygen Flow Rate 2 2 09/07/24 10:30 09/07/24 10:40 09/07/24 10:40 Temperature 98.6 F Pulse Rate 101 H Respiratory Rate 22 Blood Pressure 98/56 L 98/56 L Pulse Oximetry 94 Oxygen Delivery Method Oxygen Flow Rate 09/07/24 10:50 09/07/24 10:50 09/07/24 11:00 Temperature 98.6 F 98.8 F Pulse Rate 106 H 107 H Respiratory Rate 30 H 31 H Blood Pressure 88/50 L Pulse Oximetry 93 92 Oxygen Delivery Method Oxygen Flow Rate 09/07/24 11:01 09/07/24 11:01 09/07/24 11:10 Temperature 98.6 F 98.6 F Pulse Rate 108 H 105 H Respiratory Rate 27 H 24 Blood Pressure 110/55 L Pulse Oximetry 90 L 91 Oxygen Delivery Method Oxygen Flow Rate 09/07/24 11:10 09/07/24 11:20 09/07/24 11:20 Temperature 98.6 F Pulse Rate 107 H Respiratory Rate 27 H Blood Pressure 109/54 L 98/50 L Pulse Oximetry 93 Oxygen Delivery Method Oxygen Flow Rate 09/07/24 11:30 09/07/24 11:30 09/07/24 11:40 Temperature 98.8 F 98.6 F Pulse Rate 109 H 110 H Respiratory Rate 34 H 33 H Blood Pressure 92/50 L Pulse Oximetry 93 93 Oxygen Delivery Method Oxygen Flow Rate 09/07/24 11:40 09/07/24 11:50 09/07/24 11:50 Temperature 98.6 F Pulse Rate 113 H Respiratory Rate 30 H Blood Pressure 106/51 L 113/51 L Pulse Oximetry 93 Oxygen Delivery Method Oxygen Flow Rate 09/07/24 12:00 09/07/24 12:00 09/07/24 12:10 Temperature 98.6 F 98.6 F Pulse Rate 112 H 115 H Respiratory Rate 31 H 34 H Blood Pressure 105/52 L Pulse Oximetry 93 91 Oxygen Delivery Method Oxygen Flow Rate 09/07/24 12:10 09/07/24 12:20 09/07/24 12:20 Temperature 98.4 F Pulse Rate 115 H Respiratory Rate 35 H Blood Pressure 110/55 L 93/46 L Pulse Oximetry 93 Oxygen Delivery Method Oxygen Flow Rate 09/07/24 12:48 09/07/24 12:54 09/07/24 12:54 Temperature 99.0 F Pulse Rate 116 H 113 H Respiratory Rate 33 H 30 H Blood Pressure 111/49 L Pulse Oximetry 92 Oxygen Delivery Method Oxygen Flow Rate 09/07/24 13:00 09/07/24 13:00 09/07/24 13:10 Temperature 98.8 F 98.8 F Pulse Rate 114 H 110 H Respiratory Rate 30 H 25 H Blood Pressure 96/49 L Pulse Oximetry 93 91 Oxygen Delivery Method Oxygen Flow Rate 09/07/24 13:10 09/07/24 13:20 09/07/24 13:20 Temperature 99.0 F Pulse Rate 107 H Respiratory Rate 24 Blood Pressure 88/49 L 101/44 L Pulse Oximetry 91 Oxygen Delivery Method Oxygen Flow Rate 09/07/24 13:30 09/07/24 13:30 Temperature 99.0 F Pulse Rate 112 H Respiratory Rate 25 H Blood Pressure 96/39 L Pulse Oximetry 92 Oxygen Delivery Method Oxygen Flow Rate Oxygen Delivery Method Nasal Cannula Oxygen Flow Rate 2 Narrative Exam Narrative: This is a pale-appearing elderly female alert and oriented x3 who indicates that she has some left lower quadrant abdominal pain. Head is normocephalic and atraumatic. Neck is supple. Back is without CVA or spinous process tenderness. Lungs are clear to auscultation. Chest is symmetric nontender with normal inspiratory and expiratory excursion. Heart has a regular rate and rhythm with no murmur or gallop. Patient is currently on 0.2 mics per minute of norepinephrine maintaining a systolic pressure in excess of 100. Abdomen is moderately distended. Bowel sounds are present. Left upper right upper and lower quadrants are soft. Left lower quadrant tenderness palpation elicits voluntary guarding. Extremities manifests full range of motion. Neurological exam is grossly nonfocal. Objective Labs 09/07/24 05:30 09/07/24 09:00 Labs: Laboratory Results - last 24 hr 09/07/24 09/07/24 09/07/24 05:30 09:00 13:30 WBC 23.5 H D RBC 4.09 Hgb 11.9 L Hct 37.0 MCV 90.4 MCH 29.1 MCHC 32.2 RDW 13.9 Plt Count 347 Neut % (Auto) Not Reportable Lymph % (Auto) Not Reportable [place] % (Auto) Not Reportable Eos % (Auto) Not Reportable Baso % (Auto) Not Reportable Lymph # (Auto) Not Reportable [place] # (Auto) Not Reportable Baso # (Auto) Not Reportable Total Counted 100 Seg Neutrophils % 59.0 Band Neutrophils % 26.0 H Lymphocytes % (Manual) 6.0 L Atypical Lymphs % 3.0 H Monocytes % (Manual) 6.0 Neutrophils # (Manual) 34966 H RBC Morphology Not Reportable [place] Cells 1+ H Sodium 130 L 126 L Potassium 4.2 4.0 Chloride 109 H 105 Carbon Dioxide 11 L 11 L BUN 28 H 28 H Creatinine 1.32 H 1.38 H Estimated GFR 39 L 37 L BUN/Creatinine Ratio 21.2 20.3 Glucose 139 H 244 H D Lactate 1.6 Calcium 6.7 L 6.4 L* Magnesium 1.7 Total Bilirubin 0.4 AST 29 ALT 13 Alkaline Phosphatase 78 Total Protein 4.5 L Albumin 2.1 L Globulin 2.4 Albumin/Globulin Ratio 0.9 L PFSH Social History household members: none Tobacco & Substance Use Smoking Status: Former smoker alcohol intake: never Assessment & Plan Assessment and plan (1) Enteritis due to Yersinia enterocolitica: Status: Acute Plan There is no indication of devitalization of any segment of the patient's viscera. There is no indication of perforation or free air. There is no indication of abscess formation. While I agree this patient is quite ill, there is no indication at present for urgent surgical intervention. I will follow along with you. Thank you for the consultation. Time-Based Coding :: [TOTAL MINUTES] spent with patient and on the chart (including review of chart, obtaining history, exam, reviewing outside data, placing orders, documenting exam and treatment plan, and counseling patient) on [DATE]. PROFEE Charge Codes Inpatient or Observation consultation: [id number]
--- NOTE | 2024-09-07 14:37 | INF.NOTE ---
Day shift: Pt A&Ox3, reports hallucinating a small girl on the ceiling and wall, reports knowing it isn't real. Oxygenation 93% on 2L NC, SOB, and tachypnea reported and observed. Fine crackles present in the lung bases upon auscultation. Provider notified, new orders received. Norepinephrine titrated as documented in the MAR. Pt transferred to CT with this RN and monitoring equipment at 12:33, back to room at approximately 12:45. Pt urinary output decreased, provider notified, new orders received. Providers Dr. Germán Mariano and Dr. Melo at bedside, discussing escalation of care. Family interested in transferring patient to higher level of care. Family and patient educated on process and criteria by providers and this RN. Family now stating patient wants to stay at this hospital. Care ongoing.
[2024-09-07] MEDS: NOREPINEPHRINE BITARTRATE/D5W 4 MG/250 ML PLAST..BAG 65.1 MG IV ×2 (15:28→19:28)
--- NOTE | 2024-09-07 16:49 | EKG_ITS ---
[place] [id number] [place] [id number] Test Date: 2024-09-07 Pat Name: Concepcion Phillips Department: [facility] Room: 228 Gender: Female Sponge Maker: : 1935 Requested By: Order Number: [id number] Reading MD: Chico Gil Measurements Intervals [place] Rate: 117 P: 70 FL: 216 QRS: 9 QRSD: 74 T: 14 QT: 308 QTc: 429 Interpretive Statements Sinus tachycardia with 1st degree AV block Low voltage QRS Cannot rule out Anterior infarct , age undetermined Electronically Signed On 09-09-2024 17:27:53 PDT by Chico Gil
--- NOTE | 2024-09-07 17:00 | PM.CN.EICU ---
History of Present Illness Consult details IF CAMERA ACTIVATED, patient seen via real-time interactive audiovisual communication: Camera activated Chief complaint: LLQ pain Consent obtained for tele-clerical methods analyst care: Yes Patient Location: ICU Provider location (State): [place] Other participants/roles: bedside nursing team Narrative: 88 year old female with PMHx of HTN, HLD, CAD admitted to step down unit with left lower quadrant pain found to have acute colitis likely 2/2 to yersenia upgraded to ICU today due to persistent hypotension not responding to IVF requiring vasopressors seen in ICU in no acute distress. denies chest pain sob, ab pain improved [facility] Social History household members: none Smoking Status: Former smoker alcohol intake: never Current Medications Current Medications Medications: Home Medications benazepril 20 mg tablet 20 mg PO BID ##0 01/10/13 [History Confirmed 09/10/22] aspirin 81 mg chewable tablet 81 mg PO QDAY ##0 01/15/13 [History Confirmed 09/10/22] metoprolol tartrate 50 mg tablet 50 mg PO BID #0 tabs 01/15/13 [History Confirmed 09/10/22] econazole nitrate 1 % topical cream 1 applic topical BID #85 grams 09/10/22 [Rx Confirmed 09/10/22] Visit Medications (administered) Generic Name Dose Route Start Last Admin Trade Name Freq PRN Reason Stop Dose Admin Aspirin 81 mg 09/06/24 04:00 09/07/24 08:51 Aspirin 81 Mg Chew Tab PO 81 mg DAILY ASIM Administration Benzocaine 1 each 09/07/24 08:54 09/07/24 09:08 Benzocaine/Menthol 1 [place] Pkt PO 1 each Q1HR PRN Administration Sore Throat Heparin Sodium (Porcine) 50 unit 09/06/24 16:28 09/07/24 09:09 Heparin Flush (Cl/Picc/Mid-Line) 50 Unit/5 Ml Syringe IV 50 unit PRN PRN Administration Flush NOREPINEPHRINE BITARTRATE/D5W 4 mg in 250 mls @ 23.25 mls/hr 09/06/24 13:19 09/07/24 15:28 Levophed IV 0.28 mcg/kg/min TITRATE ASIM 65.1 mls/hr Protocol Administration 0.1 MCG/KG/MIN Gentamicin Sulfate 80 mg/ 102 mls @ 102 mls/hr 09/07/24 13:00 09/07/24 14:21 Sodium Chloride IV Infused Q24H ASIM Infusion Piperacillin Sod/Tazobactam 100 mls @ 25 mls/hr 09/07/24 14:00 09/07/24 14:01 Sod 3.375 gm/ Sodium Chloride IV 25 mls/hr Q12H ASIM Administration Sodium Chloride 1,000 mls @ 125 mls/hr 09/07/24 13:45 09/07/24 14:15 Normal Saline 0.9% IV 125 mls/hr CONT ASIM Administration Metoclopramide HCl 10 mg 09/06/24 20:47 09/07/24 08:51 Metoclopramide 10 Mg/2 Ml Inj IV 10 mg Q6HR PRN Administration Nausea And Vomiting Morphine Sulfate 3 mg 09/06/24 05:00 09/07/24 05:30 Morphine 4 Mg/Ml Inj IV 3 mg Q2HR PRN Administration Pain, Severe (7-10) Ondansetron HCl 4 mg 09/06/24 03:44 09/06/24 16:37 Ondansetron 4 Mg/2 Ml Inj IV 4 mg Q8HR PRN Administration Nausea And Vomiting Oxycodone HCl 5 mg 09/06/24 03:44 09/06/24 15:38 Oxycodone Ir 5 Mg Tablet PO 5 mg Q3H PRN Administration Pain, Moderate (4-6) Exam Vital Signs (past 8 hours): - 09/07/24 09:30 09/07/24 09:31 09/07/24 09:31 Temperature 99.0 F 99.0 F Pulse Rate 102 H 102 H Respiratory Rate 27 H 27 H Blood Pressure 73/49 L Pulse Oximetry 92 92 Oxygen Delivery Method Oxygen Flow Rate 2 2 09/07/24 09:45 09/07/24 09:45 09/07/24 09:50 Temperature 99.0 F 99.0 F Pulse Rate 102 H 102 H Respiratory Rate 31 H 30 H Blood Pressure 72/40 L Pulse Oximetry 93 93 Oxygen Delivery Method Oxygen Flow Rate 2 2 09/07/24 09:50 09/07/24 10:00 09/07/24 10:00 Temperature 99.0 F Pulse Rate 101 H Respiratory Rate 28 H Blood Pressure 84/46 L 82/47 L Pulse Oximetry 93 Oxygen Delivery Method Oxygen Flow Rate 2 09/07/24 10:10 09/07/24 10:10 09/07/24 10:21 Temperature 98.8 F 98.8 F Pulse Rate 101 H 102 H Respiratory Rate 27 H 25 H Blood Pressure 83/45 L Pulse Oximetry 94 94 Oxygen Delivery Method Oxygen Flow Rate 2 2 09/07/24 10:21 09/07/24 10:30 09/07/24 10:30 Temperature 98.6 F Pulse Rate 104 H Respiratory Rate 25 H Blood Pressure 103/60 98/56 L Pulse Oximetry 93 Oxygen Delivery Method Oxygen Flow Rate 2 09/07/24 10:40 09/07/24 10:40 09/07/24 10:50 Temperature 98.6 F 98.6 F Pulse Rate 101 H 106 H Respiratory Rate 22 30 H Blood Pressure 98/56 L Pulse Oximetry 94 93 Oxygen Delivery Method Oxygen Flow Rate 09/07/24 10:50 09/07/24 11:00 09/07/24 11:01 Temperature 98.8 F Pulse Rate 107 H Respiratory Rate 31 H Blood Pressure 88/50 L 110/55 L Pulse Oximetry 92 Oxygen Delivery Method Oxygen Flow Rate 09/07/24 11:01 09/07/24 11:10 09/07/24 11:10 Temperature 98.6 F 98.6 F Pulse Rate 108 H 105 H Respiratory Rate 27 H 24 Blood Pressure 109/54 L Pulse Oximetry 90 L 91 Oxygen Delivery Method Oxygen Flow Rate 09/07/24 11:20 09/07/24 11:20 09/07/24 11:30 Temperature 98.6 F Pulse Rate 107 H Respiratory Rate 27 H Blood Pressure 98/50 L 92/50 L Pulse Oximetry 93 Oxygen Delivery Method Oxygen Flow Rate 09/07/24 11:30 09/07/24 11:40 09/07/24 11:40 Temperature 98.8 F 98.6 F Pulse Rate 109 H 110 H Respiratory Rate 34 H 33 H Blood Pressure 106/51 L Pulse Oximetry 93 93 Oxygen Delivery Method Oxygen Flow Rate 09/07/24 11:50 09/07/24 11:50 09/07/24 12:00 Temperature 98.6 F 98.6 F Pulse Rate 113 H 112 H Respiratory Rate 30 H 31 H Blood Pressure 113/51 L Pulse Oximetry 93 93 Oxygen Delivery Method Oxygen Flow Rate 09/07/24 12:00 09/07/24 12:10 09/07/24 12:10 Temperature 98.6 F Pulse Rate 115 H Respiratory Rate 34 H Blood Pressure 105/52 L 110/55 L Pulse Oximetry 91 Oxygen Delivery Method Oxygen Flow Rate 09/07/24 12:20 09/07/24 12:20 09/07/24 12:48 Temperature 98.4 F Pulse Rate 115 H 116 H Respiratory Rate 35 H 33 H Blood Pressure 93/46 L Pulse Oximetry 93 Oxygen Delivery Method Oxygen Flow Rate 09/07/24 12:54 09/07/24 12:54 09/07/24 13:00 Temperature 99.0 F Pulse Rate 113 H Respiratory Rate 30 H Blood Pressure 111/49 L 96/49 L Pulse Oximetry 92 Oxygen Delivery Method Oxygen Flow Rate 09/07/24 13:00 09/07/24 13:00 09/07/24 13:10 Temperature 98.8 F 98.8 F Pulse Rate 114 H 110 H Respiratory Rate 30 H 25 H Blood Pressure Pulse Oximetry 93 91 Oxygen Delivery Method Nasal Cannula Oxygen Flow Rate 09/07/24 13:10 09/07/24 13:20 09/07/24 13:20 Temperature 99.0 F Pulse Rate 107 H Respiratory Rate 24 Blood Pressure 88/49 L 101/44 L Pulse Oximetry 91 Oxygen Delivery Method Oxygen Flow Rate 09/07/24 13:30 09/07/24 13:30 09/07/24 13:40 Temperature 99.0 F Pulse Rate 112 H Respiratory Rate 25 H Blood Pressure 96/39 L 86/48 L Pulse Oximetry 92 Oxygen Delivery Method Oxygen Flow Rate 09/07/24 13:40 09/07/24 13:50 09/07/24 13:55 Temperature 99.1 F 99.1 F 97.9 F Pulse Rate 105 H 106 H 117 H Respiratory Rate 22 22 34 H Blood Pressure Pulse Oximetry 92 91 93 Oxygen Delivery Method Oxygen Flow Rate 09/07/24 13:55 09/07/24 14:00 09/07/24 14:00 Temperature 99.0 F Pulse Rate 119 H Respiratory Rate 33 H Blood Pressure 128/58 L 110/54 L Pulse Oximetry 93 Oxygen Delivery Method Oxygen Flow Rate 09/07/24 14:10 09/07/24 14:10 09/07/24 14:20 Temperature 98.8 F Pulse Rate 118 H Respiratory Rate 31 H Blood Pressure 117/53 L 117/57 L Pulse Oximetry 92 Oxygen Delivery Method Oxygen Flow Rate 09/07/24 14:20 09/07/24 14:24 09/07/24 14:24 Temperature 99.1 F Pulse Rate 119 H 120 H Respiratory Rate 27 H 32 H Blood Pressure 135/60 Pulse Oximetry 93 94 Oxygen Delivery Method Oxygen Flow Rate 09/07/24 14:30 09/07/24 14:30 09/07/24 14:40 Temperature 99.0 F 99.0 F Pulse Rate 118 H 121 H Respiratory Rate 28 H 34 H Blood Pressure 129/57 L Pulse Oximetry 94 94 Oxygen Delivery Method Oxygen Flow Rate 09/07/24 14:40 09/07/24 14:51 09/07/24 14:51 Temperature 99.0 F Pulse Rate 126 H Respiratory Rate 33 H Blood Pressure 125/57 L 127/67 Pulse Oximetry 92 Oxygen Delivery Method Oxygen Flow Rate 2 09/07/24 15:00 09/07/24 15:00 09/07/24 15:10 Temperature 99.0 F 99.0 F Pulse Rate 120 H 116 H Respiratory Rate 28 H 26 H Blood Pressure 108/52 L Pulse Oximetry 94 93 Oxygen Delivery Method Oxygen Flow Rate 2 2 09/07/24 15:10 09/07/24 15:20 09/07/24 15:20 Temperature 99.0 F Pulse Rate 117 H Respiratory Rate 23 Blood Pressure 112/53 L 111/49 L Pulse Oximetry 92 Oxygen Delivery Method Oxygen Flow Rate 09/07/24 15:30 09/07/24 15:30 09/07/24 15:40 Temperature 99.1 F Pulse Rate 121 H Respiratory Rate 33 H Blood Pressure 115/54 L 114/55 L Pulse Oximetry 92 Oxygen Delivery Method Oxygen Flow Rate 09/07/24 15:40 09/07/24 15:50 09/07/24 15:50 Temperature 99.1 F 99.1 F Pulse Rate 122 H 118 H Respiratory Rate 26 H 25 H Blood Pressure 103/51 L Pulse Oximetry 92 92 Oxygen Delivery Method Oxygen Flow Rate 09/07/24 16:00 09/07/24 16:00 09/07/24 16:10 Temperature 99.1 F 99.1 F Pulse Rate 117 H 116 H Respiratory Rate 32 H 22 Blood Pressure 103/50 L Pulse Oximetry 93 93 Oxygen Delivery Method Oxygen Flow Rate 09/07/24 16:10 09/07/24 16:21 09/07/24 16:21 Temperature 99.1 F Pulse Rate 118 H Respiratory Rate 35 H Blood Pressure 110/52 L 107/56 L Pulse Oximetry 92 Oxygen Delivery Method Oxygen Flow Rate Oxygen Delivery Method Nasal Cannula Oxygen Flow Rate 2 Objective Labs 09/07/24 05:30 09/07/24 09:00 Labs: Laboratory Results - last 24 hr 09/07/24 09/07/24 09/07/24 05:30 09:00 13:30 WBC 23.5 H D RBC 4.09 Hgb 11.9 L Hct 37.0 MCV 90.4 MCH 29.1 MCHC 32.2 RDW 13.9 Plt Count 347 Neut % (Auto) Not Reportable Lymph % (Auto) Not Reportable [place] % (Auto) Not Reportable Eos % (Auto) Not Reportable Baso % (Auto) Not Reportable Lymph # (Auto) Not Reportable [place] # (Auto) Not Reportable Baso # (Auto) Not Reportable Total Counted 100 Seg Neutrophils % 59.0 Band Neutrophils % 26.0 H Lymphocytes % (Manual) 6.0 L Atypical Lymphs % 3.0 H Monocytes % (Manual) 6.0 Neutrophils # (Manual) 50535 H RBC Morphology Not Reportable [place] Cells 1+ H Sodium 130 L 126 L Potassium 4.2 4.0 Chloride 109 H 105 Carbon Dioxide 11 L 11 L BUN 28 H 28 H Creatinine 1.32 H 1.38 H Estimated GFR 39 L 37 L BUN/Creatinine Ratio 21.2 20.3 Glucose 139 H 244 H D Lactate 1.6 Calcium 6.7 L 6.4 L* Magnesium 1.7 Total Bilirubin 0.4 AST 29 ALT 13 Alkaline Phosphatase 78 Total Protein 4.5 L Albumin 2.1 L Globulin 2.4 Albumin/Globulin Ratio 0.9 L Assessment & Plan Assessment & Plan narrative: 88 year old female admitted to ICU with Severe sepsis, most likely due to sigmoid colitis Acute renal failure Hyponatremia HTN CAD Suggest -check ekg -repeat labs -check lactate/abg -Neurochecks/seizure precautions -avoid opiods/benzos -keep sat above 92% -keep map above 65, wean pressors as tolerated, may need a-line/vaso -serial ekg/trop -check echo -IVF, can chage to LR -hyponatremia noted, no symptoms, likely multi-factorial due to sepsis/renal failure/ivf -keep sodium change to 6-8mEq/24hrs -broad spec ABX/cultures -surgery/GI teams to follow, serial ab exams -monitor ins/outs -serial cbc/coags transfuse blood products prn -replace lytes prn -keep glucose 140-180s -gi/dvt ppx -please call eICU if condition changes, disucssed in detail with bedside nursing team total ccm time 45 mins -IVF and correct electrolytes -clear liquid diet and advanced as tolerated -Zosyn -FU blood cultures -no loperamide for now -FU with Surgical in AM - Hold benazepril and metoprolol for now due to low blood pressure -Repeat and monitor lactic acid Acute kidney injury. Presented with creatinine 1.6, baseline between 1?1.1. Most likely pre-renal. -continue with IV fluid hydration. -hold ACEI -monitor UOP. -daily BMP -Avoid any nephrotoxic agents, including NSAIDs Hypertension. Hydralazine as needed. Hold lisinopril for now. CAD. Restart aspirin Time-Based Coding :: [TOTAL MINUTES] spent with patient and on the chart (including review of chart, obtaining history, exam, reviewing outside data, placing orders, documenting exam and treatment plan, and counseling patient) on [DATE].
[2024-09-07 17:28] LABS: Allen Test for ABG Passed? Positive; Base Excess ABG -14.3 mmol/L (-2-3); Blood Gas Collection Site Left Radial; HCO3 ABG 12 mmol/L (23-27); Oxygen Saturation ABG 88 % (95-100); PCO2 ABG 26.7 mmHg (35-45); PO2 ABG 63 mmHg (80-100); TCO2 ABG 11 mmol/L (23-27); pH ABG 7.24 (7.35-7.45)
--- NOTE | 2024-09-07 17:37 | PM.EICU.INT ---
Teleintensivist Intervention Date/Time Was camera activated?: No Issue(s) Addressed Issue(s): Abnormal labs and Shock/hypotension Other:: acidosis Intervention(s) :: abg noted, pH 7.24/26, non compensated mebolic acidosis Intervention: 2 amps of bicarb 1L LR bolus change IVF to full bicarb drip repeat labs d/w Dr. Mariano, may require HD/intubation suggest possible transfer to higher level of care
[2024-09-07] MEDS: LACTATED RINGERS 1,000 ML 1000 ML IV (17:42)
--- NOTE | 2024-09-07 17:51 | PC.NURSE ---
Addendum entered by Va Mcdonald R.N. 09/07/24 18:28: Dr. Teixeira updated on ABG results, new orders received. Patient and family updated with Dr. Mariano. Care ongoing. Original Note: Nurse note submitted to infusion note originally in error Acct Num: [id number] : 1935 Patient Age: 88 Day shift: Pt A&Ox3, reports hallucinating a small girl on the ceiling and wall, reports knowing it isn't real. Oxygenation 93% on 2L NC, SOB, and tachypnea reported and observed. Fine crackles present in the lung bases upon auscultation. Provider notified, new orders received. Norepinephrine titrated as documented in the MAR. Pt transferred to CT with this RN and monitoring equipment at 12:33, back to room at approximately 12:45. Pt urinary output decreased, provider notified, new orders received. Providers Dr. Germán Mariano and Dr. Melo at bedside, discussing escalation of care. Family interested in transferring patient to higher level of care. Family and patient educated on process and criteria by providers and this RN. Family now stating patient wants to stay at this hospital. Care ongoing. Initialized on 09/07/24 14:37 - END OF NOTE
[2024-09-07] MEDS: SODIUM BICARB 8.4% SYRINGE 50 MEQ IV ×2 (18:02→18:15)
[2024-09-07] MEDS: ONDANSETRON 4 MG/2 ML INJ IV (18:21)
[2024-09-07] MEDS: SODIUM BICARB 8.4% VIAL 150 MEQ in DEXTROSE 5% WATER 1,000 ML IV (18:45)
--- NOTE | 2024-09-07 19:11 | PM.DS.1 ---
History of Present Illness History of Present Illness Date Patient Seen: 09/07/24 Chief complaint: LLQ pain Narrative: Chief complaint: Abdominal pain left lower quadrant with diarrhea secondary to Yersinia enterocolitis History of present illness: 88 year-old female with hypertension, hyperlipidemia, CAD presented to the ER with left lower quadrant abdominal pain, nausea, vomiting and loose stools in the last couple of days. The patient was prescribed oral amoxicillin day 7 for anterior cervical lymphadenopathy. Denies any hematemesis or melena. Denies any fever, shortness of breath or chest pain. In the ER she was found to have severe sepsis with sigmoid colitis and was started on Zosyn and fluid boluses. Laboratory was unremarkable for lactic acid of 7.4, creatinine 1.6, BUN 31, calcium of 10.3, AST 46, total bilirubin 1.7, lipase 151, stool positive for Yersinia enterocolitica. Hospital course: 09/07: Overnight patient became more short of breath hypoxic requiring oxygen White count escalated to 23,000 sodium dropped to 126 CT of the chest abdomen and pelvis ordered for possible change or source of infection or change in the sigmoid colitis from yesterday given her escalation of sepsis Change to Zosyn and gentamicin Review of systems: Patient reporting hallucinosis Increased shortness of breath Intervention(s) :: abg noted, pH 7.24/26, non compensated mebolic acidosis Intervention: 2 amps of bicarb 1L LR bolus change IVF to full bicarb drip repeat labs d/w Dr. Mariano, may require HD/intubation suggest possible transfer to higher level of care Review of systems: No chest pains or palpitations No shortness a breath or cough No urinary symptoms No paresthesia paresis Physical exam: Alert and oriented pleasant HEENT unremarkable Heart rate and rhythm regular no murmurs Lungs clear Abdomen hyperactive bowel sounds extremities no edema Neurologic nonfocal :: abg noted, pH 7.24/26, non compensated mebolic acidosis Intervention: 2 amps of bicarb 1L LR bolus change IVF to full bicarb drip repeat labs d/w Dr. Mariano, may require HD/intubation suggest possible transfer to higher level of care Assessment and plan: Severe sepsis, most likely due to sigmoid colitis. -IVF and correct electrolytes -clear liquid diet and advanced as tolerated -Zosyn -FU blood cultures -no loperamide for now -FU with Surgical in AM - Hold benazepril and metoprolol for now due to low blood pressure -Repeat and monitor lactic acid Acute kidney injury. Presented with creatinine 1.6, baseline between 1?1.1. Most likely pre-renal. -continue with IV fluid hydration. -hold ACEI -monitor UOP. -daily BMP -Avoid any nephrotoxic agents, including NSAIDs Hypertension. Hydralazine as needed. Hold lisinopril for now. CAD. Restart aspirin Time-Based Coding :: 55 minutes spent with patient and on the chart (including review of chart, obtaining history, exam, reviewing outside data, placing orders, documenting exam and treatment plan, and counseling patient). Patient accepted at [facility] by Dr. Almazan Discharge Providers Provider Date of admission: 09/06/24 03:40 Discharge Date: 09/07/24 Primary care physician: Imelda Owusu PA-C Consults: 09/06/24 03:48 Consult to Occupational Therapy Evaluate & Treat Comment: Physician Instructions: Evaluate and treat Consult to Physical Therapy Evaluate & Treat Comment: Physician Instructions: Evaluate and Treat Discharge provider: Nikolas Mariano MD Exam Vital Signs (past 8 hours): - 09/07/24 11:20 09/07/24 11:20 09/07/24 11:30 Temperature 98.6 F Pulse Rate 107 H Respiratory Rate 27 H Blood Pressure 98/50 L 92/50 L Pulse Oximetry 93 Oxygen Delivery Method Oxygen Flow Rate 09/07/24 11:30 09/07/24 11:40 09/07/24 11:40 Temperature 98.8 F 98.6 F Pulse Rate 109 H 110 H Respiratory Rate 34 H 33 H Blood Pressure 106/51 L Pulse Oximetry 93 93 Oxygen Delivery Method Oxygen Flow Rate 09/07/24 11:50 09/07/24 11:50 09/07/24 12:00 Temperature 98.6 F 98.6 F Pulse Rate 113 H 112 H Respiratory Rate 30 H 31 H Blood Pressure 113/51 L Pulse Oximetry 93 93 Oxygen Delivery Method Oxygen Flow Rate 09/07/24 12:00 09/07/24 12:10 09/07/24 12:10 Temperature 98.6 F Pulse Rate 115 H Respiratory Rate 34 H Blood Pressure 105/52 L 110/55 L Pulse Oximetry 91 Oxygen Delivery Method Oxygen Flow Rate 09/07/24 12:20 09/07/24 12:20 09/07/24 12:48 Temperature 98.4 F Pulse Rate 115 H 116 H Respiratory Rate 35 H 33 H Blood Pressure 93/46 L Pulse Oximetry 93 Oxygen Delivery Method Oxygen Flow Rate 09/07/24 12:54 09/07/24 12:54 09/07/24 13:00 Temperature 99.0 F Pulse Rate 113 H Respiratory Rate 30 H Blood Pressure 111/49 L 96/49 L Pulse Oximetry 92 Oxygen Delivery Method Oxygen Flow Rate 09/07/24 13:00 09/07/24 13:00 09/07/24 13:10 Temperature 98.8 F 98.8 F Pulse Rate 114 H 110 H Respiratory Rate 30 H 25 H Blood Pressure Pulse Oximetry 93 91 Oxygen Delivery Method Nasal Cannula Oxygen Flow Rate 09/07/24 13:10 09/07/24 13:20 09/07/24 13:20 Temperature 99.0 F Pulse Rate 107 H Respiratory Rate 24 Blood Pressure 88/49 L 101/44 L Pulse Oximetry 91 Oxygen Delivery Method Oxygen Flow Rate 09/07/24 13:30 09/07/24 13:30 09/07/24 13:40 Temperature 99.0 F Pulse Rate 112 H Respiratory Rate 25 H Blood Pressure 96/39 L 86/48 L Pulse Oximetry 92 Oxygen Delivery Method Oxygen Flow Rate 09/07/24 13:40 09/07/24 13:50 09/07/24 13:55 Temperature 99.1 F 99.1 F 97.9 F Pulse Rate 105 H 106 H 117 H Respiratory Rate 22 22 34 H Blood Pressure Pulse Oximetry 92 91 93 Oxygen Delivery Method Oxygen Flow Rate 09/07/24 13:55 09/07/24 14:00 09/07/24 14:00 Temperature 99.0 F Pulse Rate 119 H Respiratory Rate 33 H Blood Pressure 128/58 L 110/54 L Pulse Oximetry 93 Oxygen Delivery Method Oxygen Flow Rate 09/07/24 14:10 09/07/24 14:10 09/07/24 14:20 Temperature 98.8 F Pulse Rate 118 H Respiratory Rate 31 H Blood Pressure 117/53 L 117/57 L Pulse Oximetry 92 Oxygen Delivery Method Oxygen Flow Rate 09/07/24 14:20 09/07/24 14:24 09/07/24 14:24 Temperature 99.1 F Pulse Rate 119 H 120 H Respiratory Rate 27 H 32 H Blood Pressure 135/60 Pulse Oximetry 93 94 Oxygen Delivery Method Oxygen Flow Rate 09/07/24 14:30 09/07/24 14:30 09/07/24 14:40 Temperature 99.0 F 99.0 F Pulse Rate 118 H 121 H Respiratory Rate 28 H 34 H Blood Pressure 129/57 L Pulse Oximetry 94 94 Oxygen Delivery Method Oxygen Flow Rate 09/07/24 14:40 09/07/24 14:51 09/07/24 14:51 Temperature 99.0 F Pulse Rate 126 H Respiratory Rate 33 H Blood Pressure 125/57 L 127/67 Pulse Oximetry 92 Oxygen Delivery Method Oxygen Flow Rate 2 09/07/24 15:00 09/07/24 15:00 09/07/24 15:10 Temperature 99.0 F 99.0 F Pulse Rate 120 H 116 H Respiratory Rate 28 H 26 H Blood Pressure 108/52 L Pulse Oximetry 94 93 Oxygen Delivery Method Oxygen Flow Rate 2 2 09/07/24 15:10 09/07/24 15:20 09/07/24 15:20 Temperature 99.0 F Pulse Rate 117 H Respiratory Rate 23 Blood Pressure 112/53 L 111/49 L Pulse Oximetry 92 Oxygen Delivery Method Oxygen Flow Rate 09/07/24 15:30 09/07/24 15:30 09/07/24 15:40 Temperature 99.1 F Pulse Rate 121 H Respiratory Rate 33 H Blood Pressure 115/54 L 114/55 L Pulse Oximetry 92 Oxygen Delivery Method Oxygen Flow Rate 09/07/24 15:40 09/07/24 15:50 09/07/24 15:50 Temperature 99.1 F 99.1 F Pulse Rate 122 H 118 H Respiratory Rate 26 H 25 H Blood Pressure 103/51 L Pulse Oximetry 92 92 Oxygen Delivery Method Oxygen Flow Rate 09/07/24 16:00 09/07/24 16:00 09/07/24 16:10 Temperature 99.1 F 99.1 F Pulse Rate 117 H 116 H Respiratory Rate 32 H 22 Blood Pressure 103/50 L Pulse Oximetry 93 93 Oxygen Delivery Method Oxygen Flow Rate 09/07/24 16:10 09/07/24 16:21 09/07/24 16:21 Temperature 99.1 F Pulse Rate 118 H Respiratory Rate 35 H Blood Pressure 110/52 L 107/56 L Pulse Oximetry 92 Oxygen Delivery Method Oxygen Flow Rate 09/07/24 16:30 09/07/24 16:30 09/07/24 16:40 Temperature 99.3 F 99.3 F Pulse Rate 112 H 115 H Respiratory Rate 22 25 H Blood Pressure 108/55 L Pulse Oximetry 93 93 Oxygen Delivery Method Oxygen Flow Rate 09/07/24 16:40 09/07/24 16:50 09/07/24 16:50 Temperature 99.3 F Pulse Rate 121 H Respiratory Rate 30 H Blood Pressure 115/55 L 108/51 L Pulse Oximetry 92 Oxygen Delivery Method Oxygen Flow Rate 09/07/24 17:00 09/07/24 17:00 09/07/24 17:00 Temperature 99.3 F Pulse Rate 117 H Respiratory Rate 24 Blood Pressure 105/50 L Pulse Oximetry 93 Oxygen Delivery Method Nasal Cannula Oxygen Flow Rate 09/07/24 17:10 09/07/24 17:10 09/07/24 17:30 Temperature 99.3 F 99.3 F Pulse Rate 117 H 115 H Respiratory Rate 31 H 29 H Blood Pressure 100/49 L Pulse Oximetry 94 92 Oxygen Delivery Method Oxygen Flow Rate 4 09/07/24 17:43 09/07/24 17:43 09/07/24 17:50 Temperature 99.1 F 99.1 F Pulse Rate 117 H 119 H Respiratory Rate 31 H 27 H Blood Pressure 109/51 L Pulse Oximetry 92 93 Oxygen Delivery Method Oxygen Flow Rate 4 09/07/24 17:50 09/07/24 18:00 09/07/24 18:00 Temperature 99.0 F Pulse Rate 117 H Respiratory Rate 26 H Blood Pressure 136/62 129/59 L Pulse Oximetry 95 Oxygen Delivery Method Oxygen Flow Rate 09/07/24 18:10 09/07/24 18:10 09/07/24 18:20 Temperature 98.8 F 98.6 F Pulse Rate 127 H 128 H Respiratory Rate 30 H 29 H Blood Pressure 127/58 L Pulse Oximetry 95 95 Oxygen Delivery Method Oxygen Flow Rate 4 4 09/07/24 18:20 09/07/24 18:30 09/07/24 18:30 Temperature 98.6 F Pulse Rate 125 H Respiratory Rate 30 H Blood Pressure 134/60 134/87 Pulse Oximetry 95 Oxygen Delivery Method Oxygen Flow Rate 09/07/24 18:40 09/07/24 18:40 Temperature 98.6 F Pulse Rate 126 H Respiratory Rate 29 H Blood Pressure 119/60 Pulse Oximetry 95 Oxygen Delivery Method Oxygen Flow Rate Oxygen Delivery Method Nasal Cannula Oxygen Flow Rate 4 Objective Labs 09/07/24 05:30 09/07/24 09:00 Labs: Laboratory Results - last 24 hr 09/07/24 09/07/24 09/07/24 05:30 09:00 13:30 WBC 23.5 H D RBC 4.09 Hgb 11.9 L Hct 37.0 MCV 90.4 MCH 29.1 MCHC 32.2 RDW 13.9 Plt Count 347 Neut % (Auto) Not Reportable Lymph % (Auto) Not Reportable [place] % (Auto) Not Reportable Eos % (Auto) Not Reportable Baso % (Auto) Not Reportable Lymph # (Auto) Not Reportable [place] # (Auto) Not Reportable Baso # (Auto) Not Reportable Total Counted 100 Seg Neutrophils % 59.0 Band Neutrophils % 26.0 H Lymphocytes % (Manual) 6.0 L Atypical Lymphs % 3.0 H Monocytes % (Manual) 6.0 Neutrophils # (Manual) 78873 H RBC Morphology Not Reportable Paron Cells 1+ H ABG Sample Site ABG pH ABG pCO2 ABG pO2 ABG HCO3 ABG Total CO2 ABG O2 Saturation ABG Base Excess [place] Test Sodium 130 L 126 L Potassium 4.2 4.0 Chloride 109 H 105 Carbon Dioxide 11 L 11 L BUN 28 H 28 H Creatinine 1.32 H 1.38 H Estimated GFR 39 L 37 L BUN/Creatinine Ratio 21.2 20.3 Glucose 139 H 244 H D Lactate 1.6 Calcium 6.7 L 6.4 L* Magnesium 1.7 Total Bilirubin 0.4 AST 29 ALT 13 Alkaline Phosphatase 78 Total Protein 4.5 L Albumin 2.1 L Globulin 2.4 Albumin/Globulin Ratio 0.9 L 09/07/24 17:23 WBC RBC Hgb Hct MCV MCH MCHC RDW Plt Count Neut % (Auto) Lymph % (Auto) Par[place] % (Auto) Eos % (Auto) Baso % (Auto) Lymph # (Auto) [place] # (Auto) Baso # (Auto) Total Counted Seg Neutrophils % Band Neutrophils % Lymphocytes % (Manual) Atypical Lymphs % Monocytes % (Manual) Neutrophils # (Manual) RBC Morphology Олег Cells ABG Sample Site Left radial ABG pH 7.24 L* ABG pCO2 26.7 L ABG pO2 63 L ABG HCO3 12 L ABG Total CO2 11 L ABG O2 Saturation 88 L ABG Base Excess -14.3 L [place] Test Positive Sodium Potassium Chloride Carbon Dioxide BUN Creatinine Estimated GFR BUN/Creatinine Ratio Glucose Lactate Calcium Magnesium Total Bilirubin AST ALT Alkaline Phosphatase Total Protein Albumin Globulin Albumin/Globulin Ratio PFSH Social History household members: none Smoking Status: Former smoker alcohol intake: never Discharge Plan Discharge Plan Patient Disposition: [facility] Other facility: [facility] it Discharge Data Primary Care Provider: Imelda Owusu VTE Deep Vein Thrombosis/Pulmonary Embolism Present on Admission: No
--- NOTE | 2024-09-07 20:56 | EKG_ITS ---
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
--- NOTE | 2024-09-07 20:58 | DI.RAD.S_ITS ---
PROCEDURE: XR CHEST 1V INDICATIONS: sob TECHNIQUE: One view of the chest was acquired. COMPARISON: [facility], CR, XR CHEST 1V, 09/07/2024, 9:05. [facility], CR, XR CHEST FOR PICC 1V, 09/06/2024, 13:34. FINDINGS AND IMPRESSION: Persistent mild opacity at the left costophrenic angle likely focal airspace disease, atelectasis, and/or effusion. Consider future imaging surveillance to assess for resolution. Low lung volumes. Aortic calcifications. Borderline cardiomegaly. Degenerative osseous changes. There is a right PICC with tip projecting over the mid SVC Dictated by: Mark Fitzpatrick M.D. on 09/07/2024 at 21:14 Approved by: Mark Fitzpatrick M.D. on 09/07/2024 at 21:15
--- NOTE | 2024-09-07 21:12 | EKG_ITS ---
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
--- NOTE | 2024-09-07 21:16 | PM.EICU.INT ---
Teleintensivist Intervention Date/Time Was camera activated?: Yes Date Patient Seen: 09/07/24 Time Patient Seen: 21:16 Issue(s) Addressed Issue(s): Arrhythmia Intervention(s) :: IVF lopressor 2.5mg ivp bipap labs cxr EKG Name(s): bedside nursing team Dr. Miles to follow
[2024-09-07 21:34] LABS: Add Manual Diff / Slide Review YES; Hematocrit 35.8 % (36-46); Hemoglobin 11.6 g/dL (12.0-16.0); Mean Corpuscular HGB Conc 32.5 % (30-36); Mean Corpuscular Hemoglobin 29.1 PG (26-34); Mean Corpuscular Volume 89.4 fL (80-100); Platelet Count 281 X10^3/uL (150-400); Red Blood Cell Count 4.01 X10^6/uL (4.0-5.2); Red Cell Distribution Width 13.5 % (11.6-14.8); White Blood Cell Count 20.8 X10^3/uL (4.5-11.0)
[2024-09-07] MEDS: METOPROLOL TARTRATE 5 MG/5 ML INJ IV (21:37)
[2024-09-07 21:39] LABS: Allen Test for ABG Passed? Positive; Base Excess ABG -7.9 mmol/L (-2-3); Blood Gas Collection Site Right Radial; Blood Gas Mode Bi-Level Ventilation; HCO3 ABG 16 mmol/L (23-27); Oxygen Saturation ABG 97 % (95-100); PCO2 ABG 28.3 mmHg (35-45); PO2 ABG 87 mmHg (80-100); Pressure Support 5; TCO2 ABG 15 mmol/L (23-27); pH ABG 7.37 (7.35-7.45)
[2024-09-07] MEDS: MAGNESIUM SULFATE 2 GM/50 ML PIGGYBACK IV (21:39)
[2024-09-07 21:44] LABS: Alanine Aminotransferase 17 IU/L (<35); Albumin 2.2 g/dL (3.5-5.0); Albumin Globulin Ratio 0.8 (1.0-2.8); Alkaline Phosphatase 91 U/L (38-126); Aspartate Aminotransferase 36 IU/L (14-36); BUN Creatinine Ratio 18.6 (6-22); Bilirubin Total 0.2 mg/dL (0.2-1.3); Blood Urea Nitrogen 27 mg/dL (7-17); Calcium 6.7 mg/dL (8.4-10.2); Carbon Dioxide 17 mmol/L (22-32); Estimated Glomerular Filt Rate 35 mL/min (>60); Globulin 2.6 g/dL (1.7-4.1); Glucose 145 mg/dL (70-99); HEMOLYSIS < 15 (0-50); Lactate (Lactic Acid) 2.4 mmol/L (0.7-2.1); Magnesium 1.4 mg/dL (1.6-2.3); Phosphorous 3.5 mg/dL (2.8-4.1); Total Protein 4.8 g/dL (6.3-8.2)
[2024-09-07 21:47] LABS: Neutrophils Absolute Manual 18928 /uL (3000-5900); Total Cells Counted 100
[2024-09-07 21:48] LABS: RBC Morphology Normal Morphology
[2024-09-07 22:02] LABS: Chloride 108 mmol/L (98-107); Potassium 4.1 mmol/L (3.4-5.1); Sodium 133 mmol/L (137-145)
[2024-09-07 23:02] LABS: Reflexed Lactate in 2 Hours Y
[2024-09-07] MEDS: NOREPINEPHRINE BITARTRATE/D5W 4 MG/250 ML PLAST..BAG 58.125 MG IV (23:04)
[2024-09-07] MEDS: METOPROLOL TARTRATE 5 MG/5 ML INJ 2.5 MG IV (23:05)
[2024-09-08 00:45] LABS: Add Manual Diff / Slide Review NO; Basophils Absolute Auto 100 /uL (0-100); Basophils Percent Auto 0.4 % (0-2); Eosinophils Absolute Auto 0 /uL (0-450); Lymphocytes Absolute Auto 800 /uL (1100-4500); Lymphocytes Percent Auto 4.2 % (25-40); Mean Corpuscular HGB Conc 34.3 % (30-36); Mean Corpuscular Volume 87.4 fL (80-100); Monocytes Absolute Auto 900 /uL (0-900); Monocytes Percent Auto 4.8 % (3-14); Neutrophils Absolute Auto 16600 /uL (1500-7000); Neutrophils Percent Auto 90.6 % (50-75); Platelet Count 290 X10^3/uL (150-400); Red Blood Cell Count 3.66 X10^6/uL (4.0-5.2); Red Cell Distribution Width 13.3 % (11.6-14.8); White Blood Cell Count 18.4 X10^3/uL (4.5-11.0)
[2024-09-08 00:58] LABS: BUN Creatinine Ratio 18.6 (6-22); Blood Urea Nitrogen 26 mg/dL (7-17); Calcium 6.6 mg/dL (8.4-10.2); Carbon Dioxide 19 mmol/L (22-32); Chloride 103 mmol/L (98-107); Estimated Glomerular Filt Rate 36 mL/min (>60); Glucose 146 mg/dL (70-99); HEMOLYSIS < 15 (0-50); Lactate 2HR (Lactic Acid Rflx) 1.8 mmol/L (0.7-2.1); Potassium 3.6 mmol/L (3.4-5.1); Sodium 128 mmol/L (137-145)
[2024-09-08 00:59] LABS: Magnesium 2.1 mg/dL (1.6-2.3)
--- NOTE | 2024-09-08 01:10 | PC.NURSE ---
Dolly Pusher Note-Bedside shift report at 1909. Patient A/Ox3, forgetful and AGUA CALIENTE, does have bilateral aids. Levophed gtt 0.28mcg/kg/min, ST 90s w/ PACs. Denies pain except during turning, minimal nausea, incont small loose stool. T 99.0 via T-Adam. At 2049-Patient went into SVT 170s, patient stable, vagal manuevers attempted, unsuccessful. Tele-I Dr. Marquez notified and appeared on monitor. EKG, CXR, ABG, labs drawn, Bipap initiated, 2gm IV Mg+ sulfate started, 2.5mg IV metoprolol x1 given-was effective, HR down to 120s. 2249-Tele-I Dr. Miles notified of new onset A-fib RVR rate 120-130s, verified with EKG, patient asymptomatic. BP 152/66, Levophed at 0.25mcg/min. On 5L NC, SpO2 >94%, denies dyspnea. Another 2.5mg IV metoprolol x1 ordered, given, and effective. UOP 900ml cloudy svetlana. 010-Report called to receiving RUBEN Marlow. Family with patient when she left, they took all of patients belongings.
[2024-09-08 10:11] LABS: Yersinia enterocolitica Detected (Not Detect)
== END 2024-09-08 00:53 | disposition short-term general hospital (02) | DRG 871 ==
LOC: ED 03:39 → AC 03:41 → ICU 05:24
PROVIDERS: Internal Medicine; Internal Medicine Critical Care Medicine; Admitting Provider Internal Medicine; Emergency Provider Emergency Medicine; Family Provider Physician Assistant; PCP Physician Assistant; Referring Provider Emergency Medicine; Visit Provider Internal Medicine
DX: A41.9 Sepsis, unspecified organism (principal); J96.01 Acute respiratory failure with hypoxia; R65.21 Severe sepsis with septic shock; N17.9 Acute kidney failure, unspecified; A04.6 Enteritis due to Yersinia enterocolitica; R18.8 Other ascites; E87.1 Hypo-osmolality and hyponatremia; E87.20 Acidosis, unspecified; R65.20 Severe sepsis without septic shock; I10 Essential (primary) hypertension; I25.10 Atherosclerotic heart disease of native coronary artery without angina pectoris; I49.9 Cardiac arrhythmia, unspecified; Z87.891 Personal history of nicotine dependence
CPT/HCPCS: 36415; 36569; 36592; 36600; 71045; 71250; 74176; 74177; 76000; 80048; 80053; 81001; 82805; 83605; 83690; 83735; 84100; 85007; 85025; 87040; 87086; 87507; 87797; 93005; 96361; 96365; 96367; 96375; 99284; 99285; 99291; 99292; J0696; J1171; J1642; J2270; J2405; J2543; J2765; J2865; J3475; Q9967

== ENCOUNTER 2024-11-01 10:26 | Observation (INO) | payer MEDICARE, SELFPAY ==
[2024-09-06 03:56] VITALS: BMI 24.2
[2024-11-01] VITALS (22 sets, daily range): BP systolic 62–128; BP diastolic 29–58; PULSE 60–83; RESP 7–64; TEMP 35.4–36.6; O2SAT 84–99; BMI 21.6
--- NOTE | 2024-11-01 10:55 | DI.RAD.S_ITS ---
PROCEDURE: XR CHEST 1V INDICATIONS: Chest Pain TECHNIQUE: One view of the chest was acquired. COMPARISON: [facility], CR, XR CHEST 1V, 09/07/2024, 20:54. FINDINGS: Surgical changes and devices: None. Lungs and pleura: Lungs are clear. No pleural effusions or pneumothorax. Mediastinum: Mediastinal contours appear normal. Heart size is normal. Bones and chest wall: No suspicious bony lesions. Overlying soft tissues appear unremarkable. IMPRESSION: No acute cardiopulmonary pathology. Dictated by: Dell Irby M.D. on 11/01/2024 at 11:16 Approved by: Dell Irby M.D. on 11/01/2024 at 11:17
--- NOTE | 2024-11-01 11:00 | EKG_ITS ---
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 Electronically Signed On 11-12-2024 8:47:47 PDT by Chico Gil
[2024-11-01 11:01] LABS: Add Manual Diff / Slide Review NO; Hematocrit 30.3 % (36-46); Hemoglobin 9.9 g/dL (12.0-16.0); Lymphocytes Absolute Auto 3200 /uL (1100-4500); Mean Corpuscular HGB Conc 32.8 % (30-36); Mean Corpuscular Hemoglobin 27.6 PG (26-34); Mean Corpuscular Volume 84.1 fL (80-100); Platelet Count 696 X10^3/uL (150-400)
[2024-11-01 11:04] LABS: INR 1.0 (0.9-1.3); Prothrombin Time 11.7 SECONDS (9.4-12.5)
[2024-11-01 11:07] LABS: PTT Partial Thromboplastin Tim 20 SECONDS (25.1-36.5)
[2024-11-01 11:09] LABS: Alanine Aminotransferase 19 IU/L (<35); Albumin 2.6 g/dL (3.5-5.0); Albumin Globulin Ratio 0.8 (1.0-2.8); Alkaline Phosphatase 134 U/L (38-126); Blood Urea Nitrogen 20 mg/dL (7-17); Calcium 8.1 mg/dL (8.4-10.2); Carbon Dioxide 26 mmol/L (22-32); Chloride 101 mmol/L (98-107); Creatine Kinase 21 U/L (30-135); Estimated Glomerular Filt Rate 49 mL/min (>60); Globulin 3.2 g/dL (1.7-4.1); Glucose 103 mg/dL (70-99); HEMOLYSIS < 15 (0-50); Lipase 163 U/L (23-300); Magnesium 1.5 mg/dL (1.6-2.3); Potassium 3.3 mmol/L (3.4-5.1); Sodium 132 mmol/L (137-145); Total Protein 5.8 g/dL (6.3-8.2)
[2024-11-01] MEDS: SODIUM CHLORIDE 0.9% 1,000 ML 1000 ML IV (11:18)
[2024-11-01 11:20] LABS: NT-proBNP (BNP-Adult 18+) 778 pg/mL (<450); Troponin I < 0.012 ng/mL (0.01-0.034)
--- NOTE | 2024-11-01 11:20 | PC.NURSE ---
BP 66/42, Dr Echols in room. Second line started.
--- NOTE | 2024-11-01 11:55 | ED.WEAKNESS ---
HPI - Weakness General Chief complaint: Weakness Stated complaint: low BP- sent from Dr. Owusu Time Seen by Provider: 11/01/24 10:56 Source: patient Mode of arrival: Wheelchair History of Present Illness HPI Narrative: 88-YEAR-OLD FEMALE WHO IS NOW ASYMPTOMATIC BUT WAS SENT IN FROM HER DOCTOR FOR LOW BLOOD PRESSURE. PATIENT IS STILL HAVING LOWER BLOOD PRESSURES BUT IS COMPLETELY ASYMPTOMATIC. BACK ON SEPTEMBER 06, 2024 PATIENT WAS SEEN HERE IN THE ER FOR SEPSIS AND WAS ADMITTED INTO THE HOSPITAL. She was discharged and readmitted into [facility] [place] according to patient for 6 weeks and then discharged to a rehab center nearby for a month. she was recently discharge back to her independent living facility 2 weeks ago but was told to come in for having lower blood pressures again. Patient remains asymptomatic. Related Data Home Medications ?Medication ?Instructions ?Recorded ?Confirmed benazepril 20 mg tablet 20 mg PO BID ##0 01/10/13 09/10/22 aspirin 81 mg chewable tablet 81 mg PO QDAY ##0 01/15/13 09/10/22 metoprolol tartrate 50 mg tablet 50 mg PO BID #0 tabs 01/15/13 09/10/22 Previous Rx's ?Medication ?Instructions ?Recorded econazole nitrate 1 % topical cream 1 applic topical BID #85 grams 09/10/22 Allergies Allergy/AdvReac Type Severity Reaction Status Date / Time tramadol (TRAMADOL) Allergy Intermediate Verified 11/01/24 10:33 atorvastatin (ATORVASTATIN) AdvReac Mild HEADACHES Verified 11/01/24 10:33 diphenhydramine AdvReac Mild HYPERACTIVE Verified 11/01/24 10:33 (DIPHENHYDRAMINE) Review of Systems Review of Systems ROS Unobtainable: All systems reviewed & are unremarkable except as noted in HPI and below Patient History Social History household members: none alcohol intake: never Smoking Status: Never smoker Exam Narrative Exam Narrative: General: Patient appears to be in no acute distress, acting appropriately , looks dry Head: normocephalic, atraumatic, HEENT: Pupils equal round reactive, eyes tracking well, neck supple, no JVD Heart: regular rate and rhythm, no murmurs, rubs, or gallops heard Lungs: clear to auscultation, no adventitious sounds Abdomen: soft , nontender, nondistended, positive bowel sounds Neurological: no focal neurological signs, moving all extremities well, alert and oriented x3, Psych: good judgment ,good insight, mood is normal. Initial Vital Signs Initial Vital Signs: Vital Signs Temperature 97.9 F 11/01/24 10:32 Pulse Rate 66 11/01/24 10:32 Respiratory Rate 18 11/01/24 10:32 Blood Pressure 74/44 L 11/01/24 10:32 Pulse Oximetry 98 11/01/24 10:32 Oxygen Delivery Method Room Air 11/01/24 10:32 Course Course Course Narrative: Patient fits a dehydration picture was given a L of normal saline in his started on another L before her blood pressure is stabilizing. Her electrolytes are low as well which will need some replacing. Patient could not tolerate potassium IV and so was given p.o. potassium as well as a Mag rider. Decision to Admit Date: 11/01/24 Decision to Admit time: 12:15 Orders Ordered: ED Orders 11/01/24 10:50 Complete Blood Count AUTO DIFF Stat Comprehensive Metabolic Panel Stat Lipase Stat Magnesium Stat NT-proBNP (BNP-Adult 18+) Stat PTT Partial Thromboplastin Joseph Stat Prothrombin Time INR Stat Troponin & CK Cardiac Panel Stat 11/01/24 10:55 XR chest 1V Stat EKG-12 Lead Stat 11/01/24 12:16 UA dip [Urinalysis Screen (Dip Only)] Stat POTASSIUM CHLORIDE IN WATER (Potassium Cl 10 Meq/100 Ml Stefania) 10 meq in 100 mls @ 100 mls/hr IV Q1H ASIM Stop: 11/01/24 13:59 Last Admin: 11/01/24 12:46 Dose: Not Given Magnesium Sulfate (Magnesium Sulfate) 2 gm in 50 mls @ 25 mls/hr IV NOW ONE Stop: 11/01/24 14:16 Last Admin: 11/01/24 12:33 Dose: 25 mls/hr Discontinued Medications Aspirin (Aspirin 81 Mg Chew Tab) 324 mg PO NOW ONE Stop: 11/01/24 10:56 Last Admin: 11/01/24 11:17 Dose: Not Given Documented By: Sodium Chloride (Normal Saline 0.9%) 1,000 mls @ 1,000 mls/hr IV BOLUS ONE Stop: 11/01/24 12:08 Last Admin: 11/01/24 11:18 Dose: 1,000 mls/hr Documented By: Sodium Chloride (Normal Saline 0.9%) 500 mls @ 1,000 mls/hr IV BOLUS ONE Stop: 11/01/24 12:19 Last Admin: 11/01/24 12:22 Dose: 1,000 mls/hr Potassium Chloride (Potassium Chloride 20 Meq/15 Ml Udc) 40 meq PO NOW ONE Stop: 11/01/24 12:48 Reevaluation(s) Reevaluation #1: Patient continues to remain asymptomatic. Consultations Consultation #1: Dr. mariano was consulted and graciously admitted patient for failure to thrive and some dehydration. Vital Signs Vital signs: Vital Signs - 8 hr 11/01/24 10:32 11/01/24 10:55 11/01/24 10:56 Temperature 97.9 F Pulse Rate 66 Respiratory Rate 18 Blood Pressure 74/44 L 82/45 L Pulse Oximetry 98 92 Oxygen Delivery Method Room Air 11/01/24 10:56 11/01/24 11:00 11/01/24 11:00 Temperature Pulse Rate 68 61 Respiratory Rate 7 L Blood Pressure 86/45 L Pulse Oximetry 96 98 Oxygen Delivery Method Room Air 11/01/24 11:10 11/01/24 11:10 11/01/24 11:13 Temperature Pulse Rate 62 60 Respiratory Rate 7 L 9 L Blood Pressure 66/38 L Pulse Oximetry 98 98 Oxygen Delivery Method 11/01/24 11:13 11/01/24 11:15 11/01/24 11:15 Temperature Pulse Rate 64 Respiratory Rate 21 Blood Pressure 62/29 L 76/41 L Pulse Oximetry 99 Oxygen Delivery Method 11/01/24 11:23 11/01/24 11:23 11/01/24 11:30 Temperature Pulse Rate 67 67 Respiratory Rate 15 17 Blood Pressure 118/53 L Pulse Oximetry 97 97 Oxygen Delivery Method 11/01/24 11:30 11/01/24 11:40 11/01/24 11:40 Temperature Pulse Rate 68 Respiratory Rate 27 H Blood Pressure 92/55 L 92/46 L Pulse Oximetry 94 Oxygen Delivery Method Room Air MDM - Weakness Differential Diagnosis Differential diagnosis: Likely anemia, hypoglycemia, hypothyroidism, sepsis and dehydration Lab Data 11/01/24 10:50 11/01/24 10:50 Labs: Lab Results 11/01/24 Range/Units 10:50 WBC 13.3 H (4.5-11.0) X10^3/uL RBC 3.61 L (4.0-5.2) X10^6/uL Hgb 9.9 L (12.0-16.0) g/dL Hct 30.3 L (36-46) % MCV 84.1 (80-100) fL MCH 27.6 (26-34) PG MCHC 32.8 (30-36) % RDW 19.2 H (11.6-14.8) % Plt Count 696 H (150-400) X10^3/uL Neut % (Auto) 60.7 (50-75) % Lymph % (Auto) 24.2 L (25-40) % [place] % (Auto) 13.4 (3-14) % Eos % (Auto) 0.6 L (2-4) % Baso % (Auto) 1.1 (0-2) % Neut # (Auto) 8000 H (1853-8983) /uL Lymph # (Auto) 3200 (7640-5818) /uL [place] # (Auto) 1800 H (0-900) /uL Eos # (Auto) 100 (0-450) /uL Baso # (Auto) 100 (0-100) /uL PT 11.7 (9.4-12.5) SECONDS INR 1.0 (0.9-1.3) APTT 20 L (25.1-36.5) SECONDS Sodium 132 L (137-145) mmol/L Potassium 3.3 L (3.4-5.1) mmol/L Chloride 101 (98-107) mmol/L Carbon Dioxide 26 (22-32) mmol/L BUN 20 H (7-17) mg/dL Creatinine 1.09 H (0.52-1.04) mg/dL Estimated GFR 49 L (>60) mL/min BUN/Creatinine Ratio 18.3 (6-22) Glucose 103 H (70-99) mg/dL Calcium 8.1 L (8.4-10.2) mg/dL Magnesium 1.5 L (1.6-2.3) mg/dL Total Bilirubin 0.5 (0.2-1.3) mg/dL AST 31 (14-36) IU/L ALT 19 (<35) IU/L Alkaline Phosphatase 134 H (38-126) U/L Total Creatine Kinase 21 L (30-135) U/L Troponin I < 0.012 (0.01-0.034) ng/mL NT-Pro-B Natriuret Pep 778 H (<450) pg/mL Total Protein 5.8 L (6.3-8.2) g/dL Albumin 2.6 L (3.5-5.0) g/dL Globulin 3.2 (1.7-4.1) g/dL Albumin/Globulin Ratio 0.8 L (1.0-2.8) Lipase 163 (23-300) U/L ECG Data Interpretation: EKG showed a normal sinus rhythm normal axis rate of 62 beats per minute. There is a little lateral T-wave abnormality. Previous EKG showed an accelerated junctional rhythm. MDM Narrative Medical decision making narrative: Due to patient having low blood pressure readings and much decreased p.o. intake, it was decided to admit the patient into the hospital for rehydration and replacement of electrolytes. Discharge Plan Departure Patient Disposition: Admitted As Inpatient Clinical Impression: Dehydration Admit Date/Time: 11/01/24 12:26 Admit Provider: Nikolas Mariano
--- NOTE | 2024-11-01 11:56 | PC.NURSE ---
BP 92/46. Dr Echols notified. New orders received.
[2024-11-01] MEDS: POTASSIUM CHLORIDE IN WATER 10 MEQ/100 ML PIGGYBACK 100 MEQ IV (12:21)
[2024-11-01] MEDS: SODIUM CHLORIDE 0.9% 500 ML 1000 ML IV (12:22)
--- NOTE | 2024-11-01 12:24 | PC.NURSE ---
Moe placed 1220. RN notified.
[2024-11-01] MEDS: MAGNESIUM SULFATE 2 GM/50 ML PIGGYBACK IV (12:33)
--- NOTE | 2024-11-01 12:45 | PC.NURSE ---
Pt is not tolerating IV potassium. Dr Echols notified. Verbal order received for oral K 40 mEq
[2024-11-01] MEDS: POTASSIUM CHLORIDE 20 MEQ/15 ML UDC 40 MEQ PO (12:56)
--- NOTE | 2024-11-01 16:24 | P.HP_ITS ---
History of Present Illness History of Present Illness Date Patient Seen: 11/01/24 Chief complaint: low BP- sent from Dr. Owusu Narrative: Chief complaint: Low blood pressure History of present illness: 88-year-old female asymptomatic hypotension brought back to the emergency room. Workup in the emergency room was unremarkable was given 2 L of crystalloid Past medical history significant for recent hospitalization for infectious colitis Review of systems: Patient has not had any cough at a diplopia blurred vision nausea vomiting diarrhea constipation or urinary symptoms Physical exam: Elderly female alert and oriented pleasant no acute distress HEENT unremarkable Heart and lungs clear Abdomen nondistended bowel sounds present Extremities no edema Neurologic nonfocal Assessment and plan: Hypotension may be polypharmacy along with benazepril and metoprolol. * Hold antihypertensive * Coreg to prevent rebound tachycardia * Monitor orthostatic DVT prophylaxis not indicated Code status: * Full code 35 minutes were involved in managing this patient reviewing records patient examination and interview [facility] Social History household members: none Smoking Status: Never smoker alcohol intake: never Meds Home Medications and Allergies Home Medications ?Medication ?Instructions ?Recorded ?Confirmed ?Type benazepril 20 mg tablet 20 mg PO BID ##0 01/10/13 History aspirin 81 mg chewable tablet 81 mg PO QDAY ##0 09/10/22 History metoprolol tartrate 50 mg tablet 50 mg PO BID #0 tabs 01/15/13 09/10/22 History econazole nitrate 1 % topical cream 1 applic topical B ID #85 grams 09/10/22 09/10/22 Rx Allergies Allergy/AdvReac Type Severity Reaction Status Date / Time tramadol (TRAMADOL) Allergy Intermediate Verified 11/01/24 10:33 atorvastatin (ATORVASTATIN) AdvReac Mild HEADACHES Verified 11/01/24 10:33 diphenhydramine AdvReac Mild HYPERACTIVE Verified 11/01/24 10:33 (DIPHENHYDRAMINE) Exam Vital Signs (past 8 hours): - 11/01/24 10:32 11/01/24 10:55 11/01/24 10:56 Temperature 97.9 F Pulse Rate 66 Respiratory Rate 18 Blood Pressure 74/44 L 82/45 L Pulse Oximetry 98 92 Oxygen Delivery Method Room Air 11/01/24 10:56 11/01/24 11:00 11/01/24 11:00 Temperature Pulse Rate 68 61 Respiratory Rate 7 L Blood Pressure 86/45 L Pulse Oximetry 96 98 Oxygen Delivery Method Room Air 11/01/24 11:10 11/01/24 11:10 11/01/24 11:13 Temperature Pulse Rate 62 60 Respiratory Rate 7 L 9 L Blood Pressure 66/38 L Pulse Oximetry 98 98 Oxygen Delivery Method 11/01/24 11:13 11/01/24 11:15 11/01/24 11:15 Temperature Pulse Rate 64 Respiratory Rate 21 Blood Pressure 62/29 L 76/41 L Pulse Oximetry 99 Oxygen Delivery Method 11/01/24 11:23 11/01/24 11:23 11/01/24 11:30 Temperature Pulse Rate 67 67 Respiratory Rate 15 17 Blood Pressure 118/53 L Pulse Oximetry 97 97 Oxygen Delivery Method 11/01/24 11:30 11/01/24 11:40 11/01/24 11:40 Temperature Pulse Rate 68 Respiratory Rate 27 H Blood Pressure 92/55 L 92/46 L Pulse Oximetry 94 Oxygen Delivery Method Room Air 11/01/24 11:50 11/01/24 11:50 11/01/24 12:00 Temperature Pulse Rate 66 Respiratory Rate 28 H Blood Pressure 91/44 L 100/48 L Pulse Oximetry 95 Oxygen Delivery Method 11/01/24 12:00 11/01/24 12:10 11/01/24 12:10 Temperature Pulse Rate 68 70 Respiratory Rate 64 H 18 Blood Pressure 97/49 L Pulse Oximetry 96 98 Oxygen Delivery Method 11/01/24 12:20 11/01/24 12:20 11/01/24 12:30 Temperature Pulse Rate 76 71 Respiratory Rate 32 H 26 H Blood Pressure 128/58 L Pulse Oximetry 84 L 97 Oxygen Delivery Method 11/01/24 12:30 11/01/24 12:40 11/01/24 12:40 Temperature Pulse Rate 72 Respiratory Rate 21 Blood Pressure 94/48 L 94/51 L Pulse Oximetry 95 Oxygen Delivery Method 11/01/24 12:50 11/01/24 12:50 11/01/24 13:00 Temperature Pulse Rate 73 Respiratory Rate 20 Blood Pressure 85/47 L 98/50 L Pulse Oximetry 95 Oxygen Delivery Method 11/01/24 13:00 11/01/24 13:11 11/01/24 13:11 Temperature Pulse Rate 75 83 Respiratory Rate 34 H 39 H Blood Pressure 102/57 L Pulse Oximetry 94 96 Oxygen Delivery Method 11/01/24 14:00 11/01/24 15:42 Temperature 96.7 F L 95.7 F L Pulse Rate 69 66 Respiratory Rate 16 18 Blood Pressure 113/45 L 96/39 L Pulse Oximetry 97 97 Oxygen Delivery Method Oxygen Delivery Method Room Air Objective Labs 11/01/24 10:50 11/01/24 10:50 Labs: Laboratory Results - last 24 hr 11/01/24 10:50 WBC 13.3 H RBC 3.61 L Hgb 9.9 L Hct 30.3 L MCV 84.1 MCH 27.6 MCHC 32.8 RDW 19.2 H Plt Count 696 H Neut % (Auto) 60.7 Lymph % (Auto) 24.2 L [place] % (Auto) 13.4 Eos % (Auto) 0.6 L Baso % (Auto) 1.1 Neut # (Auto) 8000 H Lymph # (Auto) 3200 [place] # (Auto) 1800 H Eos # (Auto) 100 Baso # (Auto) 100 PT 11.7 INR 1.0 APTT 20 L Sodium 132 L Potassium 3.3 L Chloride 101 Carbon Dioxide 26 BUN 20 H Creatinine 1.09 H Estimated GFR 49 L BUN/Creatinine Ratio 18.3 Glucose 103 H Calcium 8.1 L Magnesium 1.5 L Total Bilirubin 0.5 AST 31 ALT 19 Alkaline Phosphatase 134 H Total Creatine Kinase 21 L Troponin I < 0.012 NT-Pro-B Natriuret Pep 778 H Total Protein 5.8 L Albumin 2.6 L Globulin 3.2 Albumin/Globulin Ratio 0.8 L Lipase 163 Assessment & Plan Time-Based Coding :: [TOTAL MINUTES] spent with patient and on the chart (including review of chart, obtaining history, exam, reviewing outside data, placing orders, documenting exam and treatment plan, and counseling patient) on [DATE]. Quality VTE Deep Vein Thrombosis/Pulmonary Embolism Present on Admission: No
[2024-11-01] MEDS: SODIUM CHLORIDE 0.9% FLUSH 10 ML IV (20:32)
[2024-11-01 20:44] LABS: Appearance Urine UA CLEAR; Bilirubin Urine UA NEGATIVE (NEGATIVE); Color Urine UA YELLOW; Glucose Urine UA NEGATIVE (Negative); Ketones Urine UA NEGATIVE (NEGATIVE); Leukocyte Esterase Urine UA NEGATIVE (NEGATIVE); Nitrite Urine UA NEGATIVE (Negative); Occult Blood Urine UA NEGATIVE (Negative); Protein Urine UA NEGATIVE (Negative); Specific Gravity Urine UA 1.010 (1.000-1.035); Urobilinogen Urine UA 0.2 E.U./dL (0.2)
[2024-11-01 20:50] LABS: pH Urine UA 6.0 (4.5-8.0)
[2024-11-01 20:56] LABS: Culture Indicated Urine Specimen Cultured
[2024-11-01] MEDS: CALCIUM CARBONATE 500 MG TAB PO (22:12)
[2024-11-02] VITALS: BP 104/46; PULSE 74; RESP 18; TEMP 35.9; O2SAT 98
[2024-11-02 04:00] VITALS: BP 101/46; PULSE 77; RESP 19; TEMP 35.9; O2SAT 97
[2024-11-02 06:05] VITALS: BP 100/52; BP 101/46; BP 87/45; PULSE 77; PULSE 91; PULSE 92
[2024-11-02 08:00] VITALS: BP 114/49; PULSE 79; RESP 14; TEMP 36.2; O2SAT 97
--- NOTE | 2024-11-02 08:53 | P.DS_ITS ---
History of Present Illness History of Present Illness Date Patient Seen: 11/02/24 Chief complaint: low BP- sent from Dr. Owusu Narrative: Chief complaint: Low blood pressure History of present illness: 11/01: 88-year-old female asymptomatic hypotension brought back to the emergency room. Workup in the emergency room was unremarkable was given 2 L of crystalloid Past medical history significant for recent hospitalization for infectious colitis Hospital course: 11/02: Blood pressure is on the low side but asymptomatic and satisfactory today after discontinuing benazepril and metoprolol and very low dose carvedilol 3.125 mg seems to be satisfactory this will be prescribed on discharge Review of systems: Patient has not had any cough at a diplopia blurred vision nausea vomiting diarrhea constipation or urinary symptoms Physical exam: Elderly female alert and oriented pleasant no acute distress HEENT unremarkable Heart and lungs clear Abdomen nondistended bowel sounds present Extremities no edema Neurologic nonfocal Assessment and plan: Hypotension may be polypharmacy along with benazepril and metoprolol. * Hold antihypertensive * Coreg to prevent rebound tachycardia * Monitor orthostatic DVT prophylaxis not indicated Code status: * Full code 35 minutes were involved in managing this patient reviewing records patient examination and interview Discharge Providers Provider Date of admission: 11/01/24 12:26 Discharge Date: 11/02/24 Primary care physician: Imelda Owusu, PA-C Discharge provider: Nikolas Mariano MD Exam Vital Signs (past 8 hours): - 11/02/24 04:00 11/02/24 06:05 Temperature 96.7 F L Pulse Rate 77 Pulse Rate [Orthostatic Lying] 77 Pulse Rate [Orthostatic Sitting] 91 H Pulse Rate [Orthostatic Standing] 92 H Respiratory Rate 19 Blood Pressure 101/46 L Blood Pressure [Orthostatic Lying] 101/46 L Blood Pressure [Orthostatic Sitting] 87/45 L Blood Pressure [Orthostatic Standing] 100/52 L Pulse Oximetry 97 Oxygen Flow Rate 0 Oxygen Delivery Method Room Air Oxygen Flow Rate 0 Objective Labs 11/01/24 10:50 11/01/24 10:50 Labs: Laboratory Results - last 24 hr 11/01/24 11/01/24 10:50 20:34 WBC 13.3 H RBC 3.61 L Hgb 9.9 L Hct 30.3 L MCV 84.1 MCH 27.6 MCHC 32.8 RDW 19.2 H Plt Count 696 H Neut % (Auto) 60.7 Lymph % (Auto) 24.2 L [place] % (Auto) 13.4 Eos % (Auto) 0.6 L Baso % (Auto) 1.1 Neut # (Auto) 8000 H Lymph # (Auto) 3200 [place] # (Auto) 1800 H Eos # (Auto) 100 Baso # (Auto) 100 PT 11.7 INR 1.0 APTT 20 L Sodium 132 L Potassium 3.3 L Chloride 101 Carbon Dioxide 26 BUN 20 H Creatinine 1.09 H Estimated GFR 49 L BUN/Creatinine Ratio 18.3 Glucose 103 H Calcium 8.1 L Magnesium 1.5 L Total Bilirubin 0.5 AST 31 ALT 19 Alkaline Phosphatase 134 H Total Creatine Kinase 21 L Troponin I < 0.012 NT-Pro-B Natriuret Pep 778 H Total Protein 5.8 L Albumin 2.6 L Globulin 3.2 Albumin/Globulin Ratio 0.8 L Lipase 163 Urine Color Yellow Urine Appearance Clear Urine pH 6.0 Ur Specific [place] 1.010 Urine Protein Negative Urine Glucose (UA) Negative Urine Ketones Negative Urine Occult Blood Negative Urine Nitrate Negative Urine Bilirubin Negative Urine Urobilinogen 0.2 Ur Leukocyte Esterase Negative Urine RBC None seen Urine WBC 1-5/hpf Ur Squamous Epith Cells 10-30 /hpf H D Urine Bacteria Moderate (10-30) H Ur Culture Indicated? Specimen cultured Vol Urine Centrifuged 10ml (spun) [facility] Social History household members: none Smoking Status: Never smoker alcohol intake: never Discharge Plan Discharge Plan Patient Disposition: Home Discharge orders & Medications Prescriptions: New carvedilol 3.125 mg Tablet 3.125 mg PO BID Qty: 60 0RF Continued econazole nitrate 1 % cream 1 applic topical BID Qty: 85 0RF Rx Instructions: use twice daily to left axilla for 4 weeks aspirin 81 MG tablet,chewable 81 mg PO QDAY Qty: 0 triamcinolone acetonide 0.1 % paste Patient Comments: APPLY TO TISSUE TWO TO THREE TIMES A DAY UNTIL SYMPTOMS DECREASE; MAXIMUM OF 7 DAYS Discontinued benazepril 20 MG tablet 20 mg PO BID Qty: 0 metoprolol tartrate 50 MG tablet 50 mg PO BID Qty: 0 Follow up/Referrals: Imelda Owusu PA-C [Primary Care Provider, Medical] Visit Report/Discharge Packet Stand Alone Forms: Patient Portal/API, Stroke Signs & Symptoms Discharge Data Primary Care Provider: Imelda Owusu VTE Deep Vein Thrombosis/Pulmonary Embolism Present on Admission: No
[2024-11-02 10:33] LABS: Blood Urea Nitrogen 13 mg/dL (7-17); Calcium 7.8 mg/dL (8.4-10.2); Carbon Dioxide 23 mmol/L (22-32); Chloride 105 mmol/L (98-107); Estimated Glomerular Filt Rate > 60 mL/min (>60); Glucose 121 mg/dL (70-99); HEMOLYSIS < 15 (0-50); Potassium 3.2 mmol/L (3.4-5.1); Sodium 135 mmol/L (137-145)
[2024-11-02 12:00] VITALS: BP 114/64; PULSE 80; RESP 16; TEMP 36.5; O2SAT 96
--- NOTE | 2024-11-02 15:13 | CM.DANOTE ---
DCP Assessment note Brief Pt is a 88yo F admitted with hypotension/dehydration. sent by PCP PCP Imelda SAMUEL Medicare [employer] and self pay BEEF TRIMMER reviewed EMR. recently admitted September 2024. discharged home with no CM needs. per previous CM assessment, pt lives alone in [place] and is very active and independent at baseline and completes her own ADLs and drives. Pt does not use DME for ambulation and no hx of HH or SNF. Family confirms that pt has a lot of local support and assist if needed per provider in morning rounds, cleared to dc home today. BEEF TRIMMER attempted to meet with pt in room, discharged home with family. P: dc home today with family support and OP f/u. CM team will continue to follow as needed LARON King Discharge Planning/Care Management CM Discharge Assessment Start: 11/01/24 14:01 Freq: Status: Active Protocol: Document 11/02/24 15:11 (Rec: 11/02/24 15:13 [id number]) Discharge Planning Assessment Assigned Discharge LARON Quintanilla Infrastructure Consultant GAIL/Assigned janie Smart Designee Name Contact Information [phone] Advance Directives? No Advance Directives No on File History Provided By Patient,Family Member,Medical Record Prior Living Apartment/Condo Arrangements Household Members none Type of Drives own vehicle transporation used prior to admit Independent with ADL Yes 's Is patient alert and Yes oriented? Discharge Plan Home Transportation Family can transport at d/c Arrangement Referrals Initiated None needed Review Status In Process Please Provide Date 11/02/24 Initial DC Assessment Was Performed Next Review Type Continued Stay Review
== END 2024-11-02 12:15 | disposition home or self-care (01) ==
LOC: ED 11:32 → AC 13:14
PROVIDERS: Admitting Provider Internal Medicine; Emergency Provider Family Medicine; Family Provider Physician Assistant; PCP Physician Assistant; Referring Provider Family Medicine; Visit Provider Internal Medicine
DX: I95.9 Hypotension, unspecified (principal); R53.1 Weakness; E86.0 Dehydration; R62.7 Adult failure to thrive
CPT/HCPCS: 36415; 71045; 80048; 80053; 81001; 81003; 82550; 83690; 83735; 83880; 84484; 85025; 85610; 85730; 87040; 87086; 93005; 96361; 96365; 96366; 99284; G0378; J3475

== ENCOUNTER → 2024-12-23 07:06 | Outpatient (CLI) | payer MEDICARE, SELFPAY ==
[2024-11-01 14:01] VITALS: BMI 21.6
[2024-12-23 09:06] LABS: Cholesterol 159 mg/dL (140-199); HDL Cholesterol 53 mg/dL (40-60); Triglycerides 154 mg/dL (35-150)
== END ==
PROVIDERS: Family Provider Physician Assistant; PCP Physician Assistant; Referring Provider Physician Assistant; Visit Provider Internal Medicine Cardiovascular Disease
DX: E78.5 Hyperlipidemia, unspecified (principal); I25.10 Atherosclerotic heart disease of native coronary artery without angina pectoris
CPT/HCPCS: 36415; 80061

== ENCOUNTER → 2025-03-17 14:28 | Outpatient (CLI) | payer MEDICARE, SELFPAY ==
[2024-11-01 14:01] VITALS: BMI 21.6
[2025-03-17 15:21] LABS: Hematocrit 32.9 % (36-46); Hemoglobin 10.7 g/dL (12.0-16.0); Mean Corpuscular HGB Conc 32.5 % (30-36); Mean Corpuscular Hemoglobin 26.7 PG (26-34); Mean Corpuscular Volume 82.1 fL (80-100); Platelet Count 430 X10^3/uL (150-400)
[2025-03-17 15:46] LABS: Alanine Aminotransferase 15 IU/L (<35); Albumin 4.0 g/dL (3.5-5.0); Albumin Globulin Ratio 1.3 (1.0-2.8); Alkaline Phosphatase 66 U/L (38-126); Blood Urea Nitrogen 22 mg/dL (7-17); Calcium 10.1 mg/dL (8.4-10.2); Carbon Dioxide 25 mmol/L (22-32); Chloride 104 mmol/L (98-107); Estimated Glomerular Filt Rate 56 mL/min (>60); Globulin 3.0 g/dL (1.7-4.1); Glucose 102 mg/dL (70-99); HEMOLYSIS 23 (0-50); Potassium 3.9 mmol/L (3.4-5.1); Sodium 140 mmol/L (137-145); Total Protein 7.0 g/dL (6.3-8.2)
== END ==
PROVIDERS: Family Provider Physician Assistant; PCP Physician Assistant; Referring Provider Nurse Practitioner Family; Visit Provider Nurse Practitioner Family
DX: R19.7 Diarrhea, unspecified (principal)
CPT/HCPCS: 36415; 80053; 85027; 87493